=== PATIENT | female | born 1940 | race African-American/Black ===

== ENCOUNTER 2016-06-30 10:05 | Outpatient (CLI) | payer MEDICARE ==
--- NOTE | 2016-06-30 11:52 | Mammography Report ---
Bilateral mammogram: No previous studies available. CAD study utilized. Findings: Scattered glandular parenchyma bilaterally. No mass or microcalcification. Normal axilla. Impression: Benign findings. Annual followup recommended. BI-RADS CATEGORY: 2 = Benign ACR BI-RADS MAMMOGRAPHIC CODES: 0 = Needs additional imaging evaluation; 1 = Negative; 2 = Benign; 3 = Probably benign; 4 = Suspicious; 5 = Malignant; 6 = Known biopsy-proven malignancy COMMENT: 1. Dense breast tissue, i.e., adenosis, fibrocystic changes, etc., may obscure an underlying neoplasm. 2. Approximately 10% of cancers are not detected with mammography. 3. A negative mammography report should not delay biopsy if a clinically suspicious mass is present. COMMENT: Patient follow-up letters are generated in [employer].
== END 2016-06-30 10:06 | disposition home or self-care (01) ==
LOC: MAMMO 10:05
PROVIDERS: ATTEND Internal Medicine
DX: Z12.31 Encounter for screening mammogram for malignant neoplasm of breast (principal)
CPT/HCPCS: 77067; G0202

== ENCOUNTER 2016-11-01 14:16 | Outpatient (CLI) | payer MEDICARE ==
--- NOTE | 2016-11-01 15:15 | Cat Scan Report ---
CT ABDOMEN AND PELVIS WITHOUT CONTRAST INDICATION: Microscopic hematuria, renal colic, chronic kidney disease. COMPARISON: 07/14/2015 FINDINGS: Noncontrast abdomen and pelvis CT performed. LUNG BASES: Slight bibasilar scarring again noted. Top normal heart size. Possible anemia. No effusions. Nonspecific distal esophageal wall prominence/thickening, not excluded for gastroesophageal reflux and/or hiatal hernia, amongst others. ABDOMEN: Please note that sensitivity to detect small visceral lesions is limited due to the absence of intravenous or oral contrast. Stable approximately 1 cm right hepatic hypodensity/cyst posteriorly on axial image 28, series 2. Tiny splenic calcified granuloma. Lobulated renal contours again noted with multiple tiny cysts suspected, some now hyperdense/possibly hemorrhagic as measuring 7 mm in the right kidney superolaterally, axial image 44. Subtle hypodense renal cysts as measuring 9 mm on the left superiorly may also be present as on axial image 37. Tiny left lower renal pole stable calcification. No radiopaque calculi or hydronephrosis. Otherwise grossly unremarkable unenhanced liver, spleen, gallbladder, pancreas, adrenals, IVC and nonaneurysmal abdominal aorta with extensive atherosclerotic aortoiliac calcifications. No ascites or significant adenopathy. Nonopacified GI tract evaluation limited, though grossly nonobstructive. Normal appendix. PELVIS: Nonopacified urinary bladder, uterus, adnexa/ovaries and rectosigmoid within normal limits. No free fluid or significant adenopathy. Moderate lumbar levoscoliosis apex about L1-L2. Advanced imaged spinal degenerative changes, including spurring and severe disc narrowing with multilevel vacuum phenomena also again noted. Spinal stenosis suspected lower thoracic and greatest at L1-L2. Demineralized bones. CONCLUSION: 1. No hydronephrosis or radiopaque calculi, though numerous bilateral renal cysts again noted, some now hyperdense/hemorrhagic, as described. 2. Various other findings, including those at lung bases, small hepatic cyst and advanced multilevel spinal degenerative changes, amongst others, as above. Thank you for the opportunity to participate in this patient's care.
== END 2016-11-01 14:17 | disposition home or self-care (01) ==
LOC: CT 14:16
PROVIDERS: ATTEND Urology
DX: N18.3 Chronic kidney disease, stage 3 (moderate) (principal); R31.29 Other microscopic hematuria; N23 Unspecified renal colic; J98.4 Other disorders of lung; J84.10 Pulmonary fibrosis, unspecified; K76.89 Other specified diseases of liver; N28.1 Cyst of kidney, acquired; N28.89 Other specified disorders of kidney and ureter; I70.0 Atherosclerosis of aorta; M41.86 Other forms of scoliosis, lumbar region; M47.896 Other spondylosis, lumbar region
CPT/HCPCS: 74176

== ENCOUNTER 2017-10-17 10:43 | Outpatient (CLI) | payer MEDICARE ==
--- NOTE | 2017-10-17 16:35 | Mammography Report ---
BILATERAL DIGITAL SCREENING MAMMOGRAM with CAD: 10/17/17 10:43:00 CLINICAL: Routine screening. COMPARISON: 06/30/16 FINDINGS: The breasts are heterogeneously dense, which may obscure small masses. A right upper asymmetry on MLO view requires additional imaging. No architectural distortion or suspicious calcifications. The left breast is negative. IMPRESSION: Right asymmetry requiring additional imaging. BI-RADS CATEGORY: 0--Needs Additional Imaging RECOMMENDATION: Recall for right exaggerated CC and spot magnification MLO views and right breast ultrasound if needed. COMMENT: Patient follow-up letters are generated by our [employer] application.
== END 2017-10-17 10:44 | disposition home or self-care (01) ==
LOC: MAMMO 10:43
PROVIDERS: ATTEND Internal Medicine
DX: Z12.31 Encounter for screening mammogram for malignant neoplasm of breast (principal)
CPT/HCPCS: 77067

== ENCOUNTER 2017-11-05 09:57 | Outpatient (CLI) | payer MEDICARE ==
--- NOTE | 2017-11-05 10:29 | Mammography Report ---
RIGHT DIGITAL DIAGNOSTIC MAMMOGRAM : 11/05/17 09:57:00 CLINICAL: Recalled for asymmetry. COMPARISON:10/17/17 screening FINDINGS: Additional mammographic views were performed and are negative. IMPRESSION: Negative Mammogram. BI-RADS CATEGORY: 1 -- Negative RECOMMENDATION: Routine mammographic screening in one year. ACR BI-RADS MAMMOGRAPHIC CODES: 0 = Needs additional imaging evaluation; 1 = Negative; 2 = Benign; 3 = Probably benign; 4 = Suspicious; 5 = Malignant; 6 = Known biopsy-proven malignancy COMMENT: 1. Dense breast tissue, i.e., adenosis, fibrocystic changes, etc., may obscure an underlying neoplasm. 2. Approximately 10% of cancers are not detected with mammography. 3. A negative mammography report should not delay biopsy if a clinically suspicious mass is present. COMMENT: Patient follow-up letters are generated via our [employer] application.
== END 2017-11-05 09:58 | disposition home or self-care (01) ==
LOC: MAMMO 09:57
PROVIDERS: ATTEND Internal Medicine
DX: R92.8 Other abnormal and inconclusive findings on diagnostic imaging of breast (principal)

== ENCOUNTER 2020-07-23 08:54 | Emergency (ER) | payer MEDICARE ==
[2020-07-23] MEDS ORDERED: MORPHINE 4 MG/1 ML INJ IM ONE (09:15)
[2020-07-23] MEDS ORDERED: ACETAMINOPHEN 325 MG TAB PO ONE (09:15)
--- NOTE | 2020-07-23 09:15 | Emergency Department Report ---
ED General Adult HPI - General Chief complaint: Fall Stated complaint: FALL/BACK PAIN PUI?: No Time Seen by Provider: 07/23/20 09:07 Source: patient, EMS ( EMS documentation not available at time of chart dictation ), RN notes reviewed, old records reviewed Mode of arrival: Stretcher Limitations: Physical Limitation - History of Present Illness Initial comments: The patient was evaluated in the emergency department for symptoms described in the history of present illness. He/she was evaluated in the context of the global COVID-19 pandemic, which necessitated consideration that the patient might be at risk for infection with the virus that causes COVID-19. Institutional protocols and algorithms that pertain to the evaluation of patients at risk for COVID-19 are in a state of rapid change based on information released by regulatory bodies including the CDC and federal and state organizations. These policies and algorithms were followed during the patient's care in the emergency department. Please note that these policies, procedures and recommendations changed on a rapid basis. Patient is an 80-year-old female who is not known to myself previously. She is on hemodialysis, Sunday, , Sunday. She lives at home by herself. The patient states that she had a mechanical fall yesterday. Prior to the fall, she was not having any symptoms. She reports that she tripped and landed on her back. She did not hit her head, but is not certain. She complains of thoracic back pain. She denies extremity weakness and numbness. She denies chest pain, abdominal pain, shortness of breath, nausea, vomiting, diarrhea, and she also denies loss of taste and smell. She makes very scant urine. She reports that her neighbor came by and helped her with calling 911, but she was not able to ambulate on her own, or get up on her own. She reports that she typically walks with a walker, she does have a few children who live close by. Her back pain is throbbing, increases with palpation, range of motion, and decreases with rest. Does not radiate anywhere. -: Gradual Location: back Quality: aching Consistency: constant Improves with: rest Worsens with: movement - Related Data Previous Rx's Medication Instructions Recorded Last Taken Type Acetaminophen [Non-Aspirin Extra 500 mg PO Q6HR PRN #30 tablet 07/23/20 Unknown Rx Strength] Allergies Allergy/AdvReac Type Severity Reaction Status Date / Time celecoxib [From Celebrex] Allergy FACE Verified 07/01/19 11:37 SWELLING sulfamethoxazole Allergy Swelling Verified 07/02/19 11:05 [From Bactrim] trimethoprim [From Bactrim] Allergy Swelling Verified 07/02/19 11:05 ED Review of Systems ROS: Stated complaint: FALL/BACK PAIN Other details as noted in HPI Constitutional: denies: fever Eyes: denies: eye discharge ENT: denies: epistaxis Respiratory: denies: cough Cardiovascular: denies: chest pain, syncope Gastrointestinal: denies: abdominal pain Genitourinary: denies: dysuria Musculoskeletal: back pain, arthralgia, myalgia Skin: denies: lesions Neurological: weakness (Generalized weakness). denies: headache, numbness Hematological/Lymphatic: denies: easy bleeding ED Past Medical Hx - Past Medical History Hx Hypertension: Yes Hx Renal Disease: Yes Additional medical history: hypercholesterol, hypothyroidism - Social History Smoking Status: Never Smoker - Medications Home Medications: Home Medications Medication Instructions Recorded Confirmed Last Taken Type Acetaminophen [Non-Aspirin Extra 500 mg PO Q6HR PRN #30 tablet 07/23/20 Unknown Rx Strength] ED Physical Exam - General Limitations: Physical Limitation General appearance: alert, in no apparent distress - Head Head exam: Present: atraumatic, normocephalic - Eye Eye exam: Present: normal appearance, EOMI. Absent: nystagmus - ENT ENT exam: Present: normal exam, normal orophraynx, mucous membranes moist, normal external ear exam - Neck Neck exam: Present: normal inspection, full ROM. Absent: tenderness, meningismus - Respiratory Respiratory exam: Present: normal lung sounds bilaterally. Absent: respiratory distress, wheezes, rales, rhonchi, stridor, decreased breath sounds - Cardiovascular Cardiovascular Exam: Present: normal rhythm, bradycardia, normal heart sounds. Absent: irregular rhythm, systolic murmur, diastolic murmur, rubs, gallop - GI/Abdominal GI/Abdominal exam: Present: soft. Absent: distended, tenderness, guarding, rebound, rigid, pulsatile mass - Extremities Exam Extremities exam: Present: normal inspection (Left upper extremity AV fistula, without redness, pus or streaking), full ROM, pedal edema (1+ edema in the bilateral lower extremities), other (2+ pulses noted in the bilateral upper and lower extremities. There is no palpable cord. negative Homans sign. Muscular compartments are soft. The pelvis is stable.). Absent: calf tenderness - Back Exam Back exam: Present: normal inspection, paraspinal tenderness, vertebral tenderness (Thoracic spine). Absent: CVA tenderness (R), CVA tenderness (L) - Neurological Exam Neurological exam: Present: alert, oriented X3, reflexes normal, other (No facial droop. Tongue midline. Extraocular movements intact bilaterally. Facial sensation intact to light touch in V1, V2, V3 distribution bilaterally. 5 and a 5 strength in 4 extremities. Sensation intact to light touch in 4 extremities.). Absent: motor sensory deficit - Psychiatric Psychiatric exam: Present: flat affect - Skin Skin exam: Present: warm, dry, intact, normal color. Absent: rash ED Course Vital Signs 07/23/20 07/23/20 09:09 10:01 Temperature 98.1 F Pulse Rate 56 L 58 L Respiratory 15 13 Rate Blood Pressure 169/60 149/50 Blood Pressure 169/60 [Right] O2 Sat by Pulse 99 100 Oximetry - Reevaluation(s) Reevaluation #1: 07/23/20 09:26 Differential diagnosis, including but not limited to: Fall, deconditioning, spinal injury, fracture, closed head injury, intracranial injury, end-stage renal disease on hemodialysis Assessment and plan: Frail-appearing 80-year-old female, who lives alone by herself, status post reported mechanical fall, and inability to get herself up after falling. The patient moves 4 extremities, has downgoing plantar reflexes bilaterally, and brisk quadriceps and biceps reflexes bilaterally, with 5 out of 5 strength in 4 extremities, and sensation intact to light touch in 4 extremities. Unlikely to be spinal cord injury. Given advanced age, thoracic spine tenderness, we will obtain CT scan of the brain, CT and L-spine to assess for fracture, dislocation. We appreciate that while the patient is awake, alert, oriented with a GCS of 15, given advanced age, D acceleration component, nonfunctional platelets in the context of end-stage renal disease, patient will require advanced imaging to rule out intracranial hemorrhage. Given advanced age, history of osteoporosis, mechanism, spinal tenderness, we will obtain CT scan of the CT and L-spine. We will also obtain EKG and appropriate laboratory studies. We will treat her pain. Once initial diagnostics have resulted, we will reassess. Have also ordered a case management request/consultation. If patient is found to not have an emergent medical condition at this time, as she may benefit from case management evaluation, insofar as they may evaluate the patient for home physical therapy and/or rehabilitation, and assist with a safe social disposition, as this 80-year-old frail-appearing female lives by herself. 07/23/20 11:22 CT scan brain, CT and L-spine negative for significant injuries. Patient able to ambulate with a walker. Her daughter is also at the bedside. She states she will go home with the patient. Patient and daughter informed of findings. Patient to follow-up for outpatient hemodialysis tomorrow. Patient and family counseled that she should expect to be sore over the next few days. Have also counseled patient and family that we have placed a case management consultation in computer for home case management/physical therapy evaluation. Due to patient's advanced age, medical comorbidities, patient requires advanced imaging to evaluate and rule out significant traumatic injuries. At this time, she is suitable for discharge with outpatient follow-up 07/23/20 11:23 ED Medical Decision Making - Lab Data Result diagrams: 07/23/20 10:05 07/23/20 10:05 Vital Signs 07/23/20 09:09 Temperature 98.1 F Pulse Rate 56 L Respiratory 15 Rate Blood Pressure 169/60 Blood Pressure 169/60 [Right] O2 Sat by Pulse 99 Oximetry Lab Results 07/23/20 07/23/20 07/23/20 Range/Units 10:05 10:05 10:05 WBC 4.0 L (4.5-11.0) K/mm3 RBC 3.80 (3.65-5.03) M/mm3 Hgb 12.7 (10.1-14.3) gm/dl Hct 38.1 (30.3-42.9) % MCV 100 H (79-97) fl MCH 33 H (28-32) pg MCHC 33 (30-34) % RDW 12.5 L (13.2-15.2) % Plt Count 167 (140-440) K/mm3 Lymph % (Auto) 20.0 (13.4-35.0) % Mcdonald % (Auto) 12.7 H (0.0-7.3) % Eos % (Auto) 5.3 H (0.0-4.3) % Baso % (Auto) 1.5 (0.0-1.8) % Lymph # (Auto) 0.8 L (1.2-5.4) K/mm3 Mcdonald # (Auto) 0.5 (0.0-0.8) K/mm3 Eos # (Auto) 0.2 (0.0-0.4) K/mm3 Baso # (Auto) 0.1 (0.0-0.1) K/mm3 Seg Neutrophils % 60.5 (40.0-70.0) % Seg Neutrophils # 2.4 (1.8-7.7) K/mm3 PT 12.9 (12.2-14.9) Sec. INR 0.92 (0.87-1.13) Sodium 138 (137-145) mmol/L Potassium 5.2 H (3.6-5.0) mmol/L Chloride 101.6 (98-107) mmol/L Carbon Dioxide 27 (22-30) mmol/L Anion Gap 15 mmol/L BUN 18 H (7-17) mg/dL Creatinine 3.3 H (0.6-1.2) mg/dL Estimated GFR 13 ml/min BUN/Creatinine Ratio 5 % Glucose 89 (65-100) mg/dL Calcium 8.9 (8.4-10.2) mg/dL Magnesium (1.7-2.3) mg/dL Total Creatine Kinase (30-135) units/L // Range/Units 10:05 WBC (4.5-11.0) K/mm3 RBC (3.65-5.03) M/mm3 Hgb (10.1-14.3) gm/dl Hct (30.3-42.9) % MCV (79-97) fl MCH (28-32) pg MCHC (30-34) % RDW (13.2-15.2) % Plt Count (140-440) K/mm3 Lymph % (Auto) (13.4-35.0) % Mcdonald % (Auto) (0.0-7.3) % Eos % (Auto) (0.0-4.3) % Baso % (Auto) (0.0-1.8) % Lymph # (Auto) (1.2-5.4) K/mm3 Mcdonald # (Auto) (0.0-0.8) K/mm3 Eos # (Auto) (0.0-0.4) K/mm3 Baso # (Auto) (0.0-0.1) K/mm3 Seg Neutrophils % (40.0-70.0) % Seg Neutrophils # (1.8-7.7) K/mm3 PT (12.2-14.9) Sec. INR (0.87-1.13) Sodium (137-145) mmol/L Potassium (3.6-5.0) mmol/L Chloride (98-107) mmol/L Carbon Dioxide (22-30) mmol/L Anion Gap mmol/L BUN (7-17) mg/dL Creatinine (0.6-1.2) mg/dL Estimated GFR ml/min BUN/Creatinine Ratio % Glucose (65-100) mg/dL Calcium (8.4-10.2) mg/dL Magnesium 2.00 (1.7-2.3) mg/dL Total Creatine Kinase 108 (30-135) units/L - EKG Data -: EKG Interpreted by Al EKG shows normal: sinus rhythm Rate: normal - EKG Data 07/23/20 10:40 EKG interpreted at 10: 15 Sinus rhythm, bradycardia, rate 58 bpm. Left axis deviation, poor R wave progression. QTC prolonged, 45 ms. This is an abnormal EKG. This is not a STEMI. - Radiology Data Radiology results: pending, report reviewed, image reviewed Pelvis one view INDICATION: Fall FINDINGS: Degenerative changes seen in bilateral hips. No acute fracture or dislocation is seen. Superior and inferior pubic rami appear intact. Advanced degenerative change in lower lumbar spine. IMPRESSION: Degenerative change in lower lumbar spine and bilateral hips. Signer Name: Erik Miller MD Signed: 07/23/2020 8:40 AM Workstation Name: [id number] CT HEAD WITHOUT CONTRAST INDICATION / CLINICAL INFORMATION: Fall, injury, pain. TECHNIQUE: Axial imaging performed from the skull apex through the skull base without the use of contrast. Sagittal and coronal reformatted images. All CT scans at this location are performed using CT dose reduction for ALARA by means of automated exposure control. COMPARISON: None available. FINDINGS: CEREBRAL PARENCHYMA: No significant abnormality. No acute territorial infarct. Age- appropriate cortical volume loss and minimal chronic white matter changes are noted. HEMORRHAGE: None. EXTRA-AXIAL SPACES: Normal in size and morphology for the patient's age. VENTRICULAR SYSTEM: Normal in size and morphology for the patient's age. MIDLINE SHIFT OR HERNIATION: None. CEREBELLUM / BRAINSTEM: No significant abnormality. CALVARIUM: No significant abnormality. ORBITS: Normal as visualized. PARANASAL SINUSES / MASTOID AIR CELLS: Normal as visualized. SOFT TISSUES of HEAD: No significant abnormality. ADDITIONAL FINDINGS: None. IMPRESSION: No acute intracranial abnormality. Signer Name: Vik torres MD Signed: 07/23/2020 9:10 AM Workstation Name: [id number] CT CERVICAL SPINE WITHOUT CONTRAST INDICATION: Fall, injury, neck pain. TECHNIQUE: Axial imaging performed through the cervical spine without the use of contrast. Sagittal and coronal reconstructed images were also reviewed. All CT scans at this location are performed using CT dose reduction for ALARA by means of automated exposure control. COMPARISON: None FINDINGS: Alignment: There is marked reversal of the normal cervical lordosis. This could be positional in nature. No subluxation. Bones: No acute fracture or bony lesion is identified. Mild osteopenia is evident. There is moderate to severe multilevel degenerative disc disease and mild facet arthropathy. There is thickening and calcifications in the posterior longitudinal ligament from C3-C6 with bilateral decompressive laminectomies at these levels. Soft tissues: No acute or significant incidental soft tissue abnormality. IMPRESSION: No acute injury is appreciated. Marked reversal of the normal cervical lordosis. Multilevel degenerative changes as described. OPLL with surgical changes. Osteopenia. Signer Name: Vik Willis Jr, MD Signed: 07/23/2020 9:14 AM Workstation Name: [id number] CT LUMBAR SPINE WITHOUT CONTRAST INDICATION: Fall. Back pain. TECHNIQUE: Axial imaging performed through the MR spine without the use of contrast. Sagittal and coronal reconstructed images were also reviewed. All CT scans at this location are performed using CT dose reduction for ALARA by means of automated exposure control. COMPARISON: None FINDINGS: Alignment: There is severe levocurvature of the lumbar spine with apex near the L2 level. There is normal alignment on the sagittal images. Bones: Mild osteopenia. Severe multilevel discogenic DJD and facet arthropathy are identified. All levels are affected. No acute fracture or bone lesion is identified. Multilevel neural foraminal narrowing is suspected. Soft tissues: No acute or significant incidental soft tissue abnormality. IMPRESSION: No acute injury is appreciated. Osteopenia. Severe levoscoliosis the lumbar spine with advanced multilevel degenerative changes. Signer Name: Vik Willis Jr, MD Signed: 07/23/2020 9:19 AM Workstation Name: [id number] CT THORACIC SPINE WITHOUT CONTRAST INDICATION / CLINICAL INFORMATION: Fall. TECHNIQUE: Axial CT images were obtained through the thoracic spine. Sagittal and coronal reformatted images were produced. All CT scans at this location are performed using CT dose reduction for ALARA by means of automated exposure control. COMPARISON: None available. FINDINGS: VERTEBRAE: No significant abnormality. No vertebral compression fracture; pedicles in the posterior elements normal ALIGNMENT: No significant abnormality. DISC SPACES: Disc spaces are narrowed; neuroforamina are normal FACET and COSTOVERTEBRAL JOINTS: Facet joint hypertrophic changes at T9-T10, T10-T11 and T11-T12 disc levels CERVICOTHORACIC JUNCTION:No significant abnormality. SPINAL CANAL: No significant abnormality. PARASPINAL SOFT TISSUES: No significant abnormality. ADDITIONAL FINDINGS: PICC line in place LUNGS: No significant abnormality of visualized lungs. IMPRESSION: 1. No fracture in the thoracic spine Signer Name: Qamar De La Cruz MD Signed: 07/23/2020 9:21 AM Workstation Name: [id number] Critical care attestation.: If time is entered above; I have spent that time in minutes in the direct care of this critically ill patient, excluding procedure time. ED Disposition Clinical Impression: Advance care planning, ESRD (end stage renal disease), Fall, Back pain, DJD (degenerative joint disease) Disposition: DC-01 TO HOME OR SELFCARE Is pt being admited?: No Does the pt Need Aspirin: No Condition: Good Instructions: Osteoarthritis, Chronic Back Pain, [id number] Additional Instructions: As we discussed, pain typically gets worse before it gets better after fall and blunt trauma. Patient should participate in rest, ice, compression, elevation, and should follow-up with her primary care doctor as an outpatient within the next 5 to 7 days. A case management consultation was ordered to see if patient is eligible for home physical therapy and/or rehabilitation. In addition, patient may follow-up with a spine surgeon such as Dr. Dang, to investigate outpatient options for chronic pain and acute pain management. Please return to the emergency room right away with new pain, worsened pain, migration of pain, extremity weakness/numbness, bladder or bowel retention or incontinence, anesthesia over the genitals and/or rectum. Please make certain to follow-up tomorrow, and is scheduled for your outpatient hemodialysis. Referrals: [facility] [Other] - 3-5 Days JEANNE DANG II, MD [Staff Physician] - 3-5 Days
--- NOTE | 2020-07-23 09:44 | XRay Report ---
Pelvis one view INDICATION: Fall FINDINGS: Degenerative changes seen in bilateral hips. No acute fracture or dislocation is seen. Supe rior and inferior pubic rami appear intact. Advanced degenerative change in lower lumbar spine. IMPRESSION: Degenerative change in lower lumbar spine and bilateral hips. Signer Name: Erik Miller MD Signed: 07/23/2020 9:40 AM Workstation Name: [id number]
--- NOTE | 2020-07-23 10:15 | Cat Scan Report ---
CT HEAD WITHOUT CONTRAST INDICATION / CLINICAL INFORMATION: Fall, injury, pain. TECHNIQUE: Axial imaging performed from the skull apex through the skull base without the use of cont rast. Sagittal and coronal reformatted images. All CT scans at this location are performed using CT dose reduction for ALARA by means of automated exposure control. COMPARISON: None available. FINDINGS: CEREBRAL PARENCHYMA: No significant abnormality. No acute territorial infarct. Age-appropriate cortic al volume loss and minimal chronic white matter changes are noted. HEMORRHAGE: None. EXTRA-AXIAL SPACES: Normal in size and morphology for the patient's age. VENTRICULAR SYSTEM: Normal in size and morphology for the patient's age. MIDLINE SHIFT OR HERNIATION: None. CEREBELLUM / BRAINSTEM: No significant abnormality. CALVARIUM: No significant abnormality. ORBITS: Normal as visualized. PARANASAL SINUSES / MASTOID AIR CELLS: Normal as visualized. SOFT TISSUES of HEAD: No significant abnormality. ADDITIONAL FINDINGS: None. IMPRESSION: No acute intracranial abnormality. Signer Name: Vik Willis Jr, MD Signed: 07/23/2020 10:10 AM Workstation Name: [id number]
--- NOTE | 2020-07-23 10:18 | Cat Scan Report ---
CT CERVICAL SPINE WITHOUT CONTRAST INDICATION: Fall, injury, neck pain. TECHNIQUE: Axial imaging performed through the cervical spine without the use of contrast. Sagittal and coronal reconstructed images were also reviewed. All CT scans at this location are performed us ing CT dose reduction for ALARA by means of automated exposure control. COMPARISON: None FINDINGS: Alignment: There is marked reversal of the normal cervical lordosis. This could be positional in jose ure. No subluxation. Bones: No acute fracture or bony lesion is identified. Mild osteopenia is evident. There is moderate to severe multilevel degenerative disc disease and mild facet arthropathy. There is thickening and c alcifications in the posterior longitudinal ligament from C3-C6 with bilateral decompressive laminect omies at these levels. Soft tissues: No acute or significant incidental soft tissue abnormality. IMPRESSION: No acute injury is appreciated. Marked reversal of the normal cervical lordosis. Multilevel degenerative changes as described. OPLL with surgical changes. Osteopenia. Signer Name: Vik Willis Jr, MD Signed: 07/23/2020 10:14 AM Workstation Name: [id number]
--- NOTE | 2020-07-23 10:23 | Cat Scan Report ---
CT LUMBAR SPINE WITHOUT CONTRAST INDICATION: Fall. Back pain. TECHNIQUE: Axial imaging performed through the MR spine without the use of contrast. Sagittal and c oronal reconstructed images were also reviewed. All CT scans at this location are performed using CT dose reduction for ALARA by means of automated exposure control. COMPARISON: None FINDINGS: Alignment: There is severe levocurvature of the lumbar spine with apex near the L2 level. There is n ormal alignment on the sagittal images. Bones: Mild osteopenia. Severe multilevel discogenic DJD and facet arthropathy are identified. All l evels are affected. No acute fracture or bone lesion is identified. Multilevel neural foraminal narr owing is suspected. Soft tissues: No acute or significant incidental soft tissue abnormality. IMPRESSION: No acute injury is appreciated. Osteopenia. Severe levoscoliosis the lumbar spine with advanced multilevel degenerative changes. Signer Name: Vik Willis Jr, MD Signed: 07/23/2020 10:19 AM Workstation Name: [id number]
--- NOTE | 2020-07-23 10:26 | Cat Scan Report ---
CT THORACIC SPINE WITHOUT CONTRAST INDICATION / CLINICAL INFORMATION: Fall. TECHNIQUE: Axial CT images were obtained through the thoracic spine. Sagittal and coronal reformatted images wer e produced. All CT scans at this location are performed using CT dose reduction for ALARA by means of automated exposure control. COMPARISON: None available. FINDINGS: VERTEBRAE: No significant abnormality. No vertebral compression fracture; pedicles in the posterior e lements normal ALIGNMENT: No significant abnormality. DISC SPACES: Disc spaces are narrowed; neuroforamina are normal FACET and COSTOVERTEBRAL JOINTS: Facet joint hypertrophic changes at T9-T10, T10-T11 and T11-T12 disc levels CERVICOTHORACIC JUNCTION:No significant abnormality. SPINAL CANAL: No significant abnormality. PARASPINAL SOFT TISSUES: No significant abnormality. ADDITIONAL FINDINGS: PICC line in place LUNGS: No significant abnormality of visualized lungs. IMPRESSION: 1. No fracture in the thoracic spine Signer Name: Qamar De La Cruz MD Signed: 07/23/2020 10:21 AM Workstation Name: [id number]
[2020-07-23 10:56] LABS: Basophils # (Auto) 0.1 K/mm3 (0.0-0.1); Basophils % (Auto) 1.5 % (0.0-1.8); Eosinophils # (Auto) 0.2 K/mm3 (0.0-0.4); Eosinophils % (Auto) 5.3 % (0.0-4.3); Hematocrit 38.1 % (30.3-42.9); Hemoglobin 12.7 gm/dl (10.1-14.3); Lymphocytes # (Auto) 0.8 K/mm3 (1.2-5.4); Mean Corpuscular HGB Conc 33 % (30-34); Mean Corpuscular Volume 100 fl (79-97); Monocytes # (Auto) 0.5 K/mm3 (0.0-0.8); Monocytes % (Auto) 12.7 % (0.0-7.3); Platelet Count 167 K/mm3 (140-440); Red Cell Distribution Width 12.5 % (13.2-15.2)
[2020-07-23 11:09] LABS: Calcium 8.9 mg/dL (8.4-10.2)
[2020-07-23 11:12] LABS: INR 0.92 (0.87-1.13)
[2020-07-23 12:19] VITALS: BP 121/82
--- NOTE | 2020-07-26 10:34 | Electrocardiograph Report ---
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
== END 2020-07-23 11:45 | disposition home or self-care (01) ==
LOC: ED 08:54
DX: M47.814 Spondylosis without myelopathy or radiculopathy, thoracic region (principal); I12.0 Hypertensive chronic kidney disease with stage 5 chronic kidney disease or end stage renal disease; N18.6 End stage renal disease; E78.00 Pure hypercholesterolemia, unspecified; E03.9 Hypothyroidism, unspecified; R51.9 Headache, unspecified; Z88.8 Allergy status to other drugs, medicaments and biological substances; Z88.2 Allergy status to sulfonamides; Z79.899 Other long term (current) drug therapy; Z71.89 Other specified counseling; W19.XXXA Unspecified fall, initial encounter; Y92.89 Other specified places as the place of occurrence of the external cause; Y93.89 Activity, other specified; Y99.8 Other external cause status
CPT/HCPCS: 36415; 70450; 72125; 72128; 72131; 72170; 80048; 82550; 83735; 85025; 85610; 93005; 96372; 99285; J2270

== ENCOUNTER 2020-08-28 09:19 | Emergency (ER) | payer MEDICARE ==
--- NOTE | 2020-08-28 11:23 | Emergency Department Report ---
ED General Adult HPI - General Chief complaint: Medical Clearance Stated complaint: CONSTIPATION 2 DAYS Time Seen by Provider: 08/28/20 11:09 Source: patient Mode of arrival: Wheelchair Limitations: Physical Limitation - History of Present Illness Initial comments: Patient is 80 years old female with history of end-stage renal disease on hemodialysis. Patient presented to the ER with her caregiver for evaluation of unable to urinate for the last 2 days. Patient stated that she reported to her dialysis center today and they asked that he come to the ER. Patient stated that she also have constipation. Patient had a left arm fistula operation on J lisa 8 at [facility]. Patient denied any chest pain or shortness of breath. No fever or chills. - Related Data Previous Rx's Medication Instructions Recorded Last Taken Type Acetaminophen [Non-Aspirin Extra 500 mg PO Q6HR PRN #30 tablet 07/23/20 Unknown Rx Strength] Allergies Allergy/AdvReac Type Severity Reaction Status Date / Time celecoxib [From Celebrex] Allergy FACE Verified 07/01/19 11:37 SWELLING sulfamethoxazole Allergy Swelling Verified 07/02/19 11:05 [From Bactrim] trimethoprim [From Bactrim] Allergy Swelling Verified 07/02/19 11:05 ED Review of Systems ROS: Stated complaint: CONSTIPATION 2 DAYS Other details as noted in HPI Comment: All other systems reviewed and negative Constitutional: denies: chills, fever Respiratory: denies: cough, shortness of breath, SOB with exertion Cardiovascular: denies: chest pain, palpitations Gastrointestinal: constipation. denies: abdominal pain, nausea, vomiting Genitourinary: other (Urine retention) Neurological: denies: headache, weakness, numbness, paresthesias, confusion ED Past Medical Hx - Past Medical History Previous Medical History?: Yes Hx Hypertension: Yes Hx Renal Disease: Yes (Dialysis t, th, sat) Additional medical history: hypercholesterol, hypothyroidism - Surgical History Past Surgical History?: Yes Additional Surgical History: Left arm dialysis access - Social History Smoking Status: Never Smoker - Medications Home Medications: Home Medications Medication Instructions Recorded Confirmed Last Taken Type Acetaminophen [Non-Aspirin Extra 500 mg PO Q6HR PRN #30 tablet 07/23/20 Unknown Rx Strength] ED Physical Exam - General Limitations: Physical Limitation General appearance: alert, in no apparent distress - Head Head exam: Present: atraumatic, normocephalic, normal inspection - Eye Eye exam: Present: normal appearance - ENT ENT exam: Present: normal exam, normal orophraynx, mucous membranes moist - Neck Neck exam: Present: normal inspection, full ROM. Absent: tenderness, meningismus - Respiratory Respiratory exam: Present: normal lung sounds bilaterally - Cardiovascular Cardiovascular Exam: Present: regular rate, normal rhythm, normal heart sounds - GI/Abdominal GI/Abdominal exam: Present: soft, normal bowel sounds. Absent: distended, tenderness, guarding, rebound, rigid - Extremities Exam Extremities exam: Present: normal inspection, full ROM, normal capillary refill. Absent: tenderness - Back Exam Back exam: Present: normal inspection, full ROM. Absent: CVA tenderness (R), CVA tenderness (L) - Neurological Exam Neurological exam: Present: alert, oriented X3, CN II-XII intact - Psychiatric Psychiatric exam: Present: normal mood - Skin Skin exam: Present: warm, intact, normal color ED Course Vital Signs 08/28/20 08/28/20 09:47 09:51 Temperature 99.1 F 99.0 F Pulse Rate 62 62 Respiratory 18 18 Rate Blood Pressure 160/41 Blood Pressure 160/41 [Right] O2 Sat by Pulse 96 97 Oximetry ED Medical Decision Making - Lab Data Result diagrams: 08/28/20 11:23 08/28/20 11:23 - Medical Decision Making Patient is 80 years old female with history of end-stage renal disease on hemodialysis. Patient presented to the ER with her caregiver for evaluation of unable to urinate for the last 2 days. Patient stated that she reported to her dialysis center today and they asked that he come to the ER. Patient stated that she also have constipation. Patient had a left arm fistula operation on August 26 at [facility]. Patient denied any chest pain or shortness of breath. No fever or chills. Patient remained stable in the ER. Labs reviewed and is unremarkable except for chronic kidney disease. Patient potassium is 4.6. Benjamin catheter placed and patient has an immediate urine output of more than 700 mL. I discussed the patient with Dr. Overton who stated that patient can go straight to dialysis from the ER. Patient also advised to follow-up with urologist and given Dr. Gallagher. Patient advised to return to the ER if she develop any new symptoms. Critical care attestation.: If time is entered above; I have spent that time in minutes in the direct care of this critically ill patient, excluding procedure time. ED Disposition Clinical Impression: Acute retention of urine Disposition: DC-01 TO HOME OR SELFCARE Is pt being admited?: No Condition: Stable Additional Instructions: Patient is medically clear to have her dialysis today. Referrals: PRIMARY CARE, [Primary Care Provider] - 3-5 Days ATTILA GALLAGHER MD [Staff Physician] - 3-5 Days
--- NOTE | 2020-08-28 11:36 | XRay Report ---
CHEST - 1 VIEW INDICATION: SOB COMPARISON: 07/02/2019 FINDINGS: SUPPORT DEVICES: Right IJ catheter in place with tip in the mid right atrium. HEART: Stable mild cardiomegaly. LUNGS/PLEURA: Mild interstitial edema with no consolidation or pleural effusion. ADDITIONAL FINDINGS: None. IMPRESSION: Pulmonary findings as above. Signer Name: Haim Carney MD Signed: 08/28/2020 11:32 AM Workstation Name: [id number]
[2020-08-28 11:50] LABS: Basophils % (Auto) 0.2 % (0.0-1.8); Eosinophils # (Auto) 0.3 K/mm3 (0.0-0.4); Eosinophils % (Auto) 5.3 % (0.0-4.3); Hematocrit 35.5 % (30.3-42.9); Hemoglobin 11.8 gm/dl (10.1-14.3); Lymphocytes # (Auto) 0.2 K/mm3 (1.2-5.4); Lymphocytes % (Auto) 4.1 % (13.4-35.0); Mean Corpuscular HGB Conc 33 % (30-34); Mean Corpuscular Volume 100 fl (79-97); Monocytes # (Auto) 0.6 K/mm3 (0.0-0.8); Monocytes % (Auto) 11.2 % (0.0-7.3); Platelet Count 169 K/mm3 (140-440); Red Blood Count 3.55 M/mm3 (3.65-5.03); Red Cell Distribution Width 12.4 % (13.2-15.2)
[2020-08-28 11:55] LABS: Calcium 8.8 mg/dL (8.4-10.2)
[2020-08-28 16:08] VITALS: BP 132/65
== END 2020-08-28 16:10 | disposition home or self-care (01) ==
LOC: ED 09:19
DX: R33.9 Retention of urine, unspecified (principal); I10 Essential (primary) hypertension; Z98.890 Other specified postprocedural states; Z79.899 Other long term (current) drug therapy; Z88.8 Allergy status to other drugs, medicaments and biological substances
CPT/HCPCS: 36415; 51702; 71045; 80048; 85025

== ENCOUNTER 2021-05-28 22:47 | Inpatient (IN) | payer MEDICARE, OTHER ==
[2021-05-29] MEDS ORDERED: ONDANSETRON 4 MG/2 ML INJ IV ONE (01:41)
[2021-05-29 01:50] LABS: Basophils % (Auto) 0.3 % (0.0-1.8); Eosinophils % (Auto) 0.5 % (0.0-4.3); Lymphocytes # (Auto) 0.9 K/mm3 (1.2-5.4); Lymphocytes % (Auto) 11.4 % (13.4-35.0); Mean Corpuscular HGB Conc 34 % (30-34); Mean Corpuscular Volume 102 fl (79-97); Monocytes # (Auto) 0.4 K/mm3 (0.0-0.8); Monocytes % (Auto) 4.9 % (0.0-7.3); Platelet Count 131 K/mm3 (140-440); Red Blood Count 1.56 M/mm3 (3.65-5.03); Red Cell Distribution Width 13.7 % (13.2-15.2)
[2021-05-29 02:02] LABS: Hematocrit 15.9 % (30.3-42.9); Hemoglobin 5.3 gm/dl (10.1-14.3)
--- NOTE | 2021-05-29 03:15 | Cat Scan Report ---
CT abdomen pelvis wo con INDICATION / CLINICAL INFORMATION: vomiting. Abdominal pain TECHNIQUE: CT abdomen pelvis without contrast. All CT scans at this location are performed using CT dose reducti on for ALARA by means of automated exposure control. Exam limited by motion artifact. COMPARISON: None available. FINDINGS: Abdomen and pelvis: Exam is limited by motion artifact Mild cardiomegaly with trace interstitial roberto a. The liver contains several cystlike lesions. The gallbladder is partially contracted. The spleen, [place] adrenal glands and kidneys are grossly unremarkable within the limits of multiple artifacts and motion. No free air or free fluid. No bowel obstruction identified. The urinary bladder is fluid dis tended. No free pelvic fluid. There is severe atherosclerotic calcification of the abdominal aorta. Review of bone windows demonstrates thoracolumbar scoliosis. IMPRESSION: 1. Cardiomegaly with findings suggestive of anemia 2. No high-grade bowel obstruction identified. 3. Mild anasarca. Signer Name: Adan Ortega MD Signed: 05/29/2021 3:11 AM Workstation Name: [email or web address]
[2021-05-29] MEDS ORDERED: PANTOPRAZOLE 40 MG INJ IV ONE ×3 (03:46→08:00)
--- NOTE | 2021-05-29 03:52 | Emergency Department Report ---
ED General Adult HPI - General Chief complaint: Nausea/Vomiting/Diarrhea Stated complaint: NAUSEA/VOMITING Time Seen by Provider: 05/29/21 01:11 Source: patient, EMS Mode of arrival: Stretcher Limitations: No Limitations - History of Present Illness Initial comments: Patient presents with complaints of diarrhea x 1 days (multiple bouts) without blood or mucus. Endorses non bloody, non bilious emesis, dizziness. Denies recent travel, known sick contacts, antibiotics, eating out or any unusual or reheated foods. Denies abdominal pain - Related Data Previous Rx's Medication Instructions Recorded Last Taken Type Acetaminophen [Non-Aspirin Extra 500 mg PO Q6HR PRN #30 tablet 07/23/20 Unknown Rx Strength] Allergies Allergy/AdvReac Type Severity Reaction Status Date / Time celecoxib [From Celebrex] Allergy FACE Verified 07/01/19 11:37 SWELLING sulfamethoxazole Allergy Swelling Verified 07/02/19 11:05 [From Bactrim] trimethoprim [From Bactrim] Allergy Swelling Verified 07/02/19 11:05 ED Review of Systems ROS: Stated complaint: NAUSEA/VOMITING Other details as noted in HPI Comment: All other systems reviewed and negative Constitutional: denies: chills, fever ED Past Medical Hx - Past Medical History Previous Medical History?: Yes Hx Hypertension: Yes Hx Renal Disease: Yes (Dialysis t, th, sat) Additional medical history: hypercholesterol, hypothyroidism - Surgical History Past Surgical History?: Yes Additional Surgical History: Left arm dialysis access - Social History Smoking Status: Never Smoker Substance Use Type: None - Medications Home Medications: Home Medications Medication Instructions Recorded Confirmed Last Taken Type Acetaminophen [Non-Aspirin Extra 500 mg PO Q6HR PRN #30 tablet 07/23/20 Unknown Rx Strength] ED Physical Exam - General Limitations: No Limitations General appearance: alert, in no apparent distress - Head Head exam: Present: atraumatic, normocephalic - Eye Eye exam: Present: PERRL, EOMI - ENT ENT exam: Present: mucous membranes moist, other (airway patent) - Neck Neck exam: Present: other (supple; no JVD) - Respiratory Respiratory exam: Present: other (good air entry, nml I:E, CTAB, no use of CHUCKY) - Cardiovascular Cardiovascular Exam: Present: regular rate. Absent: rubs, gallop - GI/Abdominal GI/Abdominal exam: Present: soft, normal bowel sounds. 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 Absent: tenderness - Neurological Exam Neurological exam: Present: altered, CN II-XII intact. Absent: motor sensory deficit - Skin Skin exam: Present: warm, other (pallid) ED Course Vital Signs 05/29/21 00:50 Temperature 98 F Pulse Rate 60 Respiratory 20 Rate Blood Pressure 120/58 O2 Sat by Pulse 96 Oximetry ED Medical Decision Making - Lab Data Result diagrams: 05/29/21 01:16 05/29/21 01:16 Laboratory Tests 05/29/21 05/29/21 05/29/21 01:16 01:16 01:52 WBC 7.5 RBC 1.56 L Hgb 5.3 L* Hct 15.9 L* MCV 102 H MCH 34 H MCHC 34 RDW 13.7 Plt Count 131 L Lymph % (Auto) 11.4 L [place] % (Auto) 4.9 Eos % (Auto) 0.5 Baso % (Auto) 0.3 Lymph # (Auto) 0.9 L [place] # (Auto) 0.4 Eos # (Auto) 0.0 Baso # (Auto) 0.0 Seg Neutrophils % 82.9 H Seg Neutrophils # 6.2 Sodium 139 Potassium 4.8 Chloride 105.3 Carbon Dioxide 21 L Anion Gap 18 BUN 69 H Creatinine 2.5 H Estimated GFR 18 BUN/Creatinine Ratio 28 Glucose 112 H Calcium 8.0 L Total Bilirubin 0.20 AST 15 ALT 15 Alkaline Phosphatase 35 Total Protein 4.8 L Albumin 3.0 L Albumin/Globulin Ratio 1.[address] abd/pelvis: no acute abdominal process Stool occult blood positive PT/INR and PTT pending @ time of admission Type and screen ordered. - Medical Decision Making recieved zofran 4 mg IV x 1, pantoprazole 40 mg IV x 1, and 2 units of PRBCS ordered. Dr. Duncan (GI) consulted. Will see patient Critical Care Time: Yes Critical care time in (mins) excluding proc time.: 40 Critical care attestation.: If time is entered above; I have spent that time in minutes in the direct care of this critically ill patient, excluding procedure time. ED Disposition Clinical Impression: Anemia, Melena Disposition: ADMITTED INPATIENT Is pt being admited?: Yes Does the pt Need Aspirin: No Condition: Serious Time of Disposition: 03:54 (Patient admitted to Dr. Davila. Sign out was given by me to the admitting physician)
[2021-05-29 04:55] LABS: INR 1.33 (0.87-1.13)
[2021-05-29 04:56] LABS: Partial Thromboplastin Time 32.3 Sec. (24.2-36.6)
[2021-05-29] MEDS ORDERED: HYDROmorphone 1 MG/1 ML INJ IV PRN (05:28)
[2021-05-29] MEDS ORDERED: ONDANSETRON 4 MG/2 ML INJ IV PRN (05:28)
[2021-05-29] MEDS ORDERED: PANTOPRAZOLE 80 MG in SODIUM CHLORIDE 0.9% 100 ML IV SCH (06:00)
--- NOTE | 2021-05-29 06:06 | History and Physical Report ---
History of Present Illness Date of examination: 05/29/21 Date of admission: 05/29/21 Chief complaint: Nausea vomiting diarrhea History of present illness: 80 years old female with past medical history of hypertension, end-stage renal disease on dialysis was brought to the emergency room because of diarrhea x 1 days (multiple bouts) without blood or mucus. Endorses non bloody, non bilious emesis, dizziness. Denies recent travel, known sick contacts, antibiotics, ea ting out or any unusual or reheated foods. Denies abdominal pain In the emergency room patient is found to have hemoglobin of 5.3 and hematocrit 15.9. Stool guaiac is positive as per emergency room physician so going to admit the patient we will put the patient on Protonix drip we consulted GI for evaluation and possible endoscopy Past History Past Medical History: ESRD, hypertension, hyperlipidemia, hypothyroidism, renal failure Past Surgical History: Other (Left arm dialysis access) Social history: no significant social history Family history: no significant family history Medications and Allergies Allergies Allergy/AdvReac Type Severity Reaction Status Date / Time celecoxib [From Celebrex] Allergy FACE Verified 07/01/19 11:37 SWELLING sulfamethoxazole Allergy Swelling Verified 07/02/19 11:05 [From Bactrim] trimethoprim [From Bactrim] Allergy Swelling Verified 07/02/19 11:05 Home Medications Medication Instructions Recorded Confirmed Last Taken Type Acetaminophen [Non-Aspirin Extra 500 mg PO Q6HR PRN #30 tablet 07/23/20 Unknown Rx Strength] Active Meds: Active Medications Acetaminophen (Acetaminophen 325 Mg Tab) 650 mg PO Q4H PRN PRN Reason: Pain MILD(1-3)/Fever >100.5/LOVE Hydromorphone HCl (Hydromorphone 1 Mg/1 Ml Inj) 0.5 mg IV Q3H PRN PRN Reason: Pain , Severe (7-10) Pantoprazole Sodium 80 mg/ (Sodium Chloride) 100 mls @ 10 mls/hr IV DIRECT ELAINE Morphine Sulfate (Morphine 2 Mg/1 Ml Inj) 2 mg IV Q4H PRN PRN Reason: Pain, Moderate (4-6) Ondansetron HCl (Ondansetron 4 Mg/2 Ml Inj) 4 mg IV Q8H PRN PRN Reason: Nausea And Vomiting Sodium Chloride (Sodium Chloride 0.9% 10 Ml Flush Syringe) 10 ml IV BID ELAINE Sodium Chloride (Sodium Chloride 0.9% 10 Ml Flush Syringe) 10 ml IV PRN PRN PRN Reason: LINE FLUSH Review of Systems All systems: negative Gastrointestinal: abdominal pain, nausea, vomiting, diarrhea, melena Exam - Constitutional Vitals: Temp Pulse Resp BP Pulse Ox 98 F 60 20 120/58 96 05/29/21 00:50 05/29/21 00:50 05/29/21 00:50 05/29/21 00:50 05/29/21 00:50 General appearance: Present: no acute distress, well-nourished - EENT Eyes: Present: PERRL ENT: hearing intact, clear oral mucosa - Neck Neck: Present: supple, normal ROM - Respiratory Respiratory effort: normal Respiratory: bilateral: diminished - Cardiovascular Heart Sounds: Present: S1 & S2. Absent: rub, click - Extremities Extremities: pulses symmetrical, No edema Peripheral Pulses: within normal limits - Abdominal General gastrointestinal: Present: soft, non-tender, non-distended, normal bowel sounds Female genitourinary: Present: normal - Integumentary Integumentary: Present: clear, warm, dry - Musculoskeletal Musculoskeletal: gait normal, strength equal bilaterally - Psychiatric Psychiatric: appropriate mood/affect, intact judgment & insight - Neurologic Neurologic: CNII-XII intact, moves all extremities Results - Labs CBC & Chem 7: 05/29/21 01:16 05/29/21 01:16 Labs: Laboratory Last Values WBC 7.5 K/mm3 (4.5-11.0) 05/29/21 01:16 RBC 1.56 M/mm3 (3.65-5.03) L 05/29/21 01:16 Hgb 5.3 gm/dl (10.1-14.3) L* 05/29/21 01:16 Hct 15.9 % (30.3-42.9) L* 05/29/21 01:16 MCV 102 fl (79-97) H 05/29/21 01:16 MCH 34 pg (28-32) H 05/29/21 01:16 MCHC 34 % (30-34) 05/29/21 01:16 RDW 13.7 % (13.2-15.2) 05/29/21 01:16 Plt Count 131 K/mm3 (140-440) L 05/29/21 01:16 Lymph % (Auto) 11.4 % (13.4-35.0) L 05/29/21 01:16 [place] % (Auto) 4.9 % (0.0-7.3) 05/29/21 01:16 Eos % (Auto) 0.5 % (0.0-4.3) 05/29/21 01:16 Baso % (Auto) 0.3 % (0.0-1.8) 05/29/21 01:16 Lymph # (Auto) 0.9 K/mm3 (1.2-5.4) L 05/29/21 01:16 [place] # (Auto) 0.4 K/mm3 (0.0-0.8) 05/29/21 01:16 Eos # (Auto) 0.0 K/mm3 (0.0-0.4) 05/29/21 01:16 Baso # (Auto) 0.0 K/mm3 (0.0-0.1) 05/29/21 01:16 Seg Neutrophils % 82.9 % (40.0-70.0) H 05/29/21 01:16 Seg Neutrophils # 6.2 K/mm3 (1.8-7.7) 05/29/21 01:16 PT 18.1 Sec. (12.2-14.9) H 05/29/21 03:57 INR 1.33 (0.87-1.13) H 05/29/21 03:57 APTT 32.3 Sec. (24.2-36.6) 05/29/21 03:57 Sodium 139 mmol/L (137-145) 05/29/21 01:16 Potassium 4.8 mmol/L (3.6-5.0) 05/29/21 01:16 Chloride 105.3 mmol/L (98-107) 05/29/21 01:16 Carbon Dioxide 21 mmol/L (22-30) L 05/29/21 01:16 Anion Gap 18 mmol/L 05/29/21 01:16 BUN 69 mg/dL (7-17) H 05/29/21 01:16 Creatinine 2.5 mg/dL (0.6-1.2) H 05/29/21 01:16 Estimated GFR 18 ml/min 05/29/21 01:16 BUN/Creatinine Ratio 28 % 05/29/21 01:16 Glucose 112 mg/dL (65-100) H 05/29/21 01:16 Calcium 8.0 mg/dL (8.4-10.2) L 05/29/21 01:16 Total Bilirubin 0.20 mg/dL (0.1-1.2) 05/29/21 01:16 AST 15 units/L (5-40) 05/29/21 01:16 ALT 15 units/L (7-56) 05/29/21 01:16 Alkaline Phosphatase 35 units/L (35-129) 05/29/21 01:16 Total Protein 4.8 g/dL (6.3-8.2) L 05/29/21 01:16 Albumin 3.0 g/dL (3.9-5) L 05/29/21 01:16 Albumin/Globulin Ratio 1.7 % 05/29/21 01:16 Lipase 73 units/L (13-60) H 05/29/21 01:52 Blood Type A POSITIVE 05/29/21 03:57 Antibody Screen Negative 05/29/21 03:57 Microbiology: Microbiology 05/29/21 Unknown Stool Stool Occult Blood (ALENA) - Final - Imaging and Cardiology CT scan - abdomen: report reviewed Assessment and Plan VTE prophylaxis?: Mechanical Plan of care discussed with patient/family: Yes - Patient Problems (1) Anemia Current Visit: Yes Status: Acute Plan to address problem: Admit the patient to the medical's telemetry. We are going to transfuse 2 unit of packed red blood cell. Protonix drip. We consult GI for evaluation. Recheck CBC in the morning (2) Melena Current Visit: Yes Status: Acute Plan to address problem: We are going to transfuse 2 unit of packed red blood cell. Protonix drip. We consult GI for evaluation. Recheck CBC in the morning (3) ESRD needing dialysis Current Visit: No Status: Acute Plan to address problem: Avoid nephrotoxic drug. Reconsult nephrology for dialysis. Recheck BMP in the morning (4) Hypertension Current Visit: Yes Status: Acute Plan to address problem: Hydralazine 10 mg IV every 6 hours as needed. We continue the home medication (5) DVT prophylaxis Current Visit: Yes Status: Acute Plan to address problem: SCD for DVT prophylaxis. Protonix drip for GI prophylaxis. Patient is a full code
[2021-05-29] MEDS ORDERED: SODIUM CHLORIDE 0.9% 500 ML 500 ML IV ONE (06:07)
--- NOTE | 2021-05-29 11:08 | Event Note ---
Date: 05/29/21 Chart reviewed and patient has been seen by [facility] on prior admissions, and per documentation sees Dr Escalante as an outpatient. Will change consult to their group to follow.
[2021-05-29] MEDS ORDERED: SODIUM CHLORIDE 0.9% 500 ML 500 ML ONE (11:52)
--- NOTE | 2021-05-29 12:27 | Progress Note ---
Assessment and Plan Assessment and plan: --Severe anemia Current Visit: Yes Status: Acute Due to GI bleeding Hb 5.3 ,transfuse 2 unit of packed red blood cell. Monitor H&H and transfuse additional PRBC as needed Protonix drip. Follow GI evaluation --Melena Current Visit: Yes Status: Acute N.p.o. status, Protonix drip, closely monitor H&H Transfuse additional PRBC GI consult for possible endoscopy -- ESRD needing dialysis Current Visit: No Status: Acute Avoid nephrotoxic drug. Consulted nephrology for dialysis. -- Hypertension Current Visit: Yes Status: Acute Hydralazine 10 mg IV every 6 hours as needed. We continue the home medication --DVT prophylaxis Current Visit: Yes Status: Acute SCD for DVT prophylaxis. We will try to reach family and get consent for blood transfusion Closely monitor the patient and adjust the management as needed Plan of care reviewed with the patient and her nurse GI evaluation and recommendations noted and appreciated Possible endoscopy tomorrow Renal evaluation recommendation noted and appreciated Scheduled for hemodialysis today Closely monitor the patient and adjust the management as needed Prolonged care total time 32 minutes Advance care planning; + 30 minutes I discussed with patient her condition, tests and reports I also discussed with the patient diagnosis, discussed the treatment plan Discussed evaluation by GI, also informed her that she is going to have endoscopy tomorrow Discussed with the patient nephrology consultation and recommendations, dialysis per schedule Discussed about the severity of severe anemia with hemoglobin of 5.3, need for blood transfusion Distant complications of blood transfusion discussed with the patient, patient had some questions Answered all of them, additional time spent 30 minutes History Interval history: I have seen and examined the patient at the bedside Patient's chart and medications reviewed No new events reported by the nursing Vital signs noted Admitted with severe anemia and GI bleeding Patient is in mild distress Hospitalist Physical - Constitutional Vitals: Temp Pulse Resp BP Pulse Ox 98.8 F 73 18 112/26 95 05/29/21 09:54 05/29/21 09:55 05/29/21 09:55 05/29/21 09:54 05/29/21 09:55 General appearance: Present: mild distress, well-nourished - EENT Eyes: Present: PERRL, EOM intact - Neck Neck: Present: supple, normal ROM - Respiratory Respiratory effort: normal Respiratory: bilateral: diminished, negative: rales, rhonchi, wheezing - Cardiovascular Rhythm: regular Heart Sounds: Present: S1 & S2 - Extremities Extremities: no ischemia, No edema - Abdominal General gastrointestinal: soft, non-tender, non-distended, normal bowel sounds - Integumentary Integumentary: Present: clear, warm, pale - Psychiatric Psychiatric: appropriate mood/affect, cooperative - Neurologic Neurologic: moves all extremities Results - Labs CBC & Chem 7: 05/29/21 01:16 05/29/21 01:16 Labs: Laboratory Last Values WBC 7.5 K/mm3 (4.5-11.0) 05/29/21 01:16 RBC 1.56 M/mm3 (3.65-5.03) L 05/29/21 01:16 Hgb 5.3 gm/dl (10.1-14.3) L* 05/29/21 01:16 Hct 15.9 % (30.3-42.9) L* 05/29/21 01:16 MCV 102 fl (79-97) H 05/29/21 01:16 MCH 34 pg (28-32) H 05/29/21 01:16 MCHC 34 % (30-34) 05/29/21 01:16 RDW 13.7 % (13.2-15.2) 05/29/21 01:16 Plt Count 131 K/mm3 (140-440) L 05/29/21 01:16 Lymph % (Auto) 11.4 % (13.4-35.0) L 05/29/21 01:16 [place] % (Auto) 4.9 % (0.0-7.3) 05/29/21 01:16 Eos % (Auto) 0.5 % (0.0-4.3) 05/29/21 01:16 Baso % (Auto) 0.3 % (0.0-1.8) 05/29/21 01:16 Lymph # (Auto) 0.9 K/mm3 (1.2-5.4) L 05/29/21 01:16 [place] # (Auto) 0.4 K/mm3 (0.0-0.8) 05/29/21 01:16 Eos # (Auto) 0.0 K/mm3 (0.0-0.4) 05/29/21 01:16 Baso # (Auto) 0.0 K/mm3 (0.0-0.1) 05/29/21 01:16 Seg Neutrophils % 82.9 % (40.0-70.0) H 05/29/21 01:16 Seg Neutrophils # 6.2 K/mm3 (1.8-7.7) 05/29/21 01:16 PT 18.1 Sec. (12.2-14.9) H 05/29/21 03:57 INR 1.33 (0.87-1.13) H 05/29/21 03:57 APTT 32.3 Sec. (24.2-36.6) 05/29/21 03:57 Sodium 139 mmol/L (137-145) 05/29/21 01:16 Potassium 4.8 mmol/L (3.6-5.0) 05/29/21 01:16 Chloride 105.3 mmol/L (98-107) 05/29/21 01:16 Carbon Dioxide 21 mmol/L (22-30) L 05/29/21 01:16 Anion Gap 18 mmol/L 05/29/21 01:16 BUN 69 mg/dL (7-17) H 05/29/21 01:16 Creatinine 2.5 mg/dL (0.6-1.2) H 05/29/21 01:16 Estimated GFR 18 ml/min 05/29/21 01:16 BUN/Creatinine Ratio 28 % 05/29/21 01:16 Glucose 112 mg/dL (65-100) H 05/29/21 01:16 Calcium 8.0 mg/dL (8.4-10.2) L 05/29/21 01:16 Total Bilirubin 0.20 mg/dL (0.1-1.2) 05/29/21 01:16 AST 15 units/L (5-40) 05/29/21 01:16 ALT 15 units/L (7-56) 05/29/21 01:16 Alkaline Phosphatase 35 units/L (35-129) 05/29/21 01:16 Total Protein 4.8 g/dL (6.3-8.2) L 05/29/21 01:16 Albumin 3.0 g/dL (3.9-5) L 05/29/21 01:16 Albumin/Globulin Ratio 1.7 % 05/29/21 01:16 Lipase 73 units/L (13-60) H 05/29/21 01:52 Blood Type A POSITIVE 05/29/21 03:57 Antibody Screen Negative 05/29/21 03:57 Crossmatch See Detail 05/29/21 03:57 Microbiology: Microbiology 05/29/21 Unknown Stool Stool Occult Blood (ALENA) - Final Active Medications - Current Medications Current Medications: Generic Name Dose Route Start Last Admin Trade Name Freq PRN Reason Stop Dose Admin Acetaminophen 650 mg 05/29/21 05:28 Acetaminophen 325 Mg Tab PO Q4H PRN Pain MILD(1-3)/Fever >100.5/LOVE Hydromorphone HCl 0.5 mg 05/29/21 05:28 Hydromorphone 1 Mg/1 Ml Inj IV Q3H PRN Pain , Severe (7-10) Pantoprazole Sodium 80 mg/ 100 mls @ 10 mls/hr 05/29/21 06:00 05/29/21 08:55 Sodium Chloride IV 8 mg/hr DIRECT ELAINE 10 mls/hr Administration 8 MG/HR Morphine Sulfate 2 mg 05/29/21 05:28 Morphine 2 Mg/1 Ml Inj IV Q4H PRN Pain, Moderate (4-6) Ondansetron HCl 4 mg 05/29/21 05:28 Ondansetron 4 Mg/2 Ml Inj IV Q8H PRN Nausea And Vomiting Sodium Chloride 10 ml 05/29/21 10:00 05/29/21 09:01 Sodium Chloride 0.9% 10 Ml Flush Syringe IV 10 ml BID ELAINE Administration Sodium Chloride 10 ml 05/29/21 05:28 Sodium Chloride 0.9% 10 Ml Flush Syringe IV PRN PRN LINE FLUSH
--- NOTE | 2021-05-29 16:01 | Consultation ---
History of Present Illness - Reason for Consult Consult date: 05/29/21 end stage renal disease - History of Present Illness History of present illness: 80 years old female with past medical history of hypertension, end-stage renal disease on dialysis was brought to the emergency room because of diarrhea x 1 days (multiple bouts) without blood or mucus. Endorses non bloody, non bilious emesis, dizziness. Denies recent travel, known sick contacts, antibiotics, eatin g out or any unusual or reheated foods. Denies abdominal pain In the emergency room patient is found to have hemoglobin of 5.3 and hematocrit 15.9. Stool guaiac is positive as per emergency room physician so going to admit the patient we will put the patient on Protonix drip we consulted GI for e valuation and possible endoscopy Past History Past Medical History: ESRD, hypertension, hyperlipidemia, hypothyroidism, renal failure Past Surgical History: Other (Left arm dialysis access) Social history: no significant social history Family history: no significant family history Medications and Allergies Allergies Allergy/AdvReac Type Severity Reaction Status Date / Time celecoxib [From Celebrex] Allergy FACE Verified 07/01/19 11:37 SWELLING sulfamethoxazole Allergy Swelling Verified 07/02/19 11:05 [From Bactrim] trimethoprim [From Bactrim] Allergy Swelling Verified 07/02/19 11:05 Home Medications Medication Instructions Recorded Confirmed Last Taken Type Acetaminophen [Non-Aspirin Extra 500 mg PO Q6HR PRN #30 tablet 07/23/20 Unknown Rx Strength] Active Meds: Active Medications Acetaminophen (Acetaminophen 325 Mg Tab) 650 mg PO Q4H PRN PRN Reason: Pain MILD(1-3)/Fever >100.5/LOVE Hydromorphone HCl (Hydromorphone 1 Mg/1 Ml Inj) 0.5 mg IV Q3H PRN PRN Reason: Pain , Severe (7-10) Pantoprazole Sodium 80 mg/ (Sodium Chloride) 100 mls @ 10 mls/hr IV DIRECT ELAINE Morphine Sulfate (Morphine 2 Mg/1 Ml Inj) 2 mg IV Q4H PRN PRN Reason: Pain, Moderate (4-6) Ondansetron HCl (Ondansetron 4 Mg/2 Ml Inj) 4 mg IV Q8H PRN PRN Reason: Nausea And Vomiting Sodium Chloride (Sodium Chloride 0.9% 10 Ml Flush Syringe) 10 ml IV BID ELAINE Sodium Chloride (Sodium Chloride 0.9% 10 Ml Flush Syringe) 10 ml IV PRN PRN PRN Reason: LINE FLUSH Review of Systems All systems: negative Gastrointestinal: abdominal pain, nausea, vomiting, diarrhea, melena Past History Past Medical History: ESRD, hypertension, hyperlipidemia, hypothyroidism, renal failure Past Surgical History: Other (Left arm dialysis access) Social history: no significant social history Family history: no significant family history Medications and Allergies Allergies Allergy/AdvReac Type Severity Reaction Status Date / Time celecoxib [From Celebrex] Allergy FACE Verified 07/01/19 11:37 SWELLING sulfamethoxazole Allergy Swelling Verified 07/02/19 11:05 [From Bactrim] trimethoprim [From Bactrim] Allergy Swelling Verified 07/02/19 11:05 Home Medications Medication Instructions Recorded Confirmed Last Taken Type Acetaminophen [Non-Aspirin Extra 500 mg PO Q6HR PRN #30 tablet 07/23/20 Unknown Rx Strength] Active Meds: Active Medications Acetaminophen (Acetaminophen 325 Mg Tab) 650 mg PO Q4H PRN PRN Reason: Pain MILD(1-3)/Fever >100.5/LOVE Hydromorphone HCl (Hydromorphone 1 Mg/1 Ml Inj) 0.5 mg IV Q3H PRN PRN Reason: Pain , Severe (7-10) Pantoprazole Sodium 80 mg/ (Sodium Chloride) 100 mls @ 10 mls/hr IV DIRECT [facility] Last Admin: 05/29/21 08:55 Dose: 8 mg/hr, 10 mls/hr Morphine Sulfate (Morphine 2 Mg/1 Ml Inj) 2 mg IV Q4H PRN PRN Reason: Pain, Moderate (4-6) Ondansetron HCl (Ondansetron 4 Mg/2 Ml Inj) 4 mg IV Q8H PRN PRN Reason: Nausea And Vomiting Sodium Chloride (Sodium Chloride 0.9% 10 Ml Flush Syringe) 10 ml IV BID [facility] Last Admin: 05/29/21 09:01 Dose: 10 ml Sodium Chloride (Sodium Chloride 0.9% 10 Ml Flush Syringe) 10 ml IV PRN PRN PRN Reason: LINE FLUSH Exam - Vital Signs Vital signs: Vital Signs Temp Pulse Resp BP Pulse Ox 98 F 60 20 120/58 96 05/29/21 00:50 05/29/21 00:50 05/29/21 00:50 05/29/21 00:50 05/29/21 00:50 - Physical Exam Narrative exam: General appearance: Present: no acute distress, well-nourished - EENT Eyes: Present: PERRL ENT: hearing intact, clear oral mucosa - Neck Neck: Present: supple, normal ROM - Respiratory Respiratory effort: normal Respiratory: bilateral: diminished - Cardiovascular Heart Sounds: Present: S1 & S2. Absent: rub, click - Extremities Extremities: pulses symmetrical, No edema Peripheral Pulses: within normal limits - Abdominal General gastrointestinal: Present: soft, non-tender, non-distended, normal bowel sounds Female genitourinary: Present: normal - Integumentary Integumentary: Present: clear, warm, dry - Musculoskeletal Musculoskeletal: gait normal, strength equal bilaterally - Psychiatric Psychiatric: appropriate mood/affect, intact judgment & insight - Neurologic Neurologic: CNII-XII intact, moves all extremities Results - Lab Results 05/29/21 01:16 05/29/21 01:16 Most recent lab results Calcium 8.0 mg/dL (8.4-10.2) L 05/29/21 01:16 Assessment and Plan Assessment * End stage renal disease * Symptomatic anemia of ABL * Gi bleeding * Hypertension * Anemia secondary to ESRD Plan: * HD in am, TTHSAT as outpatient * strict i/os and daily lytes * GI evaluation of GI blood loss * PRN PRBCs * No heparin with HD * UF as tolerated * Epogen prn * Renal diet once advanced * Outpatient HD at [facility]
[2021-05-29] MEDS ORDERED: SODIUM CHLORIDE 0.9% 100 ML IV PRN (16:05)
[2021-05-29] MEDS ORDERED: ALBUMIN HUMAN 25% (25 GM/100 ML) INJ IV PRN (16:05)
--- NOTE | 2021-05-29 16:22 | Gastroenterology Consultation ---
History of Present Illness - Reason for Consult Consult date: 05/29/21 Melena Requesting physician: TOMASA HUYNH - History of Present Illness The patient was admitted with dark stools and ABLA. She has no hx of severe anemia or transfusions. She denies NSAIDs, and has no hx of PUD. She did have nausea and non-bloody emesis prior to the diarrhea, but but have resolved today, and she is tolerating clear liquids. She is not on any blood thinners, and she had a normal colonoscopy "several years ago" by her report. She has been on HD for 1 year by report. She currently has no abdominal pain, CP, or SOB. She has had no fevers since admit. Past History Past Medical History: ESRD, hypertension, hyperlipidemia, hypothyroidism, renal failure Past Surgical History: Other (Left arm dialysis access) Social history: no significant social history. denies: smoking Family history: no significant family history Medications and Allergies Allergies Allergy/AdvReac Type Severity Reaction Status Date / Time celecoxib [From Celebrex] Allergy FACE Verified 07/01/19 11:37 SWELLING sulfamethoxazole Allergy Swelling Verified 07/02/19 11:05 [From Bactrim] trimethoprim [From Bactrim] Allergy Swelling Verified 07/02/19 11:05 Home Medications Medication Instructions Recorded Confirmed Last Taken Type Acetaminophen [Non-Aspirin Extra 500 mg PO Q6HR PRN #30 tablet 07/23/20 Unknown Rx Strength] Active Meds: Active Medications Acetaminophen (Acetaminophen 325 Mg Tab) 650 mg PO Q4H PRN PRN Reason: Pain MILD(1-3)/Fever >100.5/LOVE Albumin Human (Albumin Human 25% (25 Gm/100 Ml) Inj) 25 gm IV ASHLEY PRN PRN Reason: Hypotension Epoetin Salas-epbx (Epoetin Salas-Epbx 20,000 Unit/1 Ml Vial) 20,000 unit IV ASHLEY PRN PRN Reason: hemodialysis Sodium Chloride (Nacl 0.9%) 100 mls @ 999 mls/hr IV ASHLEY PRN PRN Reason: Hypotension Morphine Sulfate (Morphine 2 Mg/1 Ml Inj) 2 mg IV Q4H PRN PRN Reason: Pain, Moderate (4-6) Ondansetron HCl (Ondansetron 4 Mg/2 Ml Inj) 4 mg IV Q8H PRN PRN Reason: Nausea And Vomiting Pantoprazole Sodium (Pantoprazole 40 Mg Inj) 40 mg IV BID [facility] Sodium Chloride (Sodium Chloride 0.9% 10 Ml Flush Syringe) 10 ml IV BID [facility] Last Admin: 05/29/21 09:01 Dose: 10 ml Sodium Chloride (Sodium Chloride 0.9% 10 Ml Flush Syringe) 10 ml IV PRN PRN PRN Reason: LINE FLUSH I have reviewed/reconciled medications. Review of Systems - Review of Systems All systems: negative (as noted in the HPI.) Exam - Constitutional Vital Signs: Temp Pulse Resp BP Pulse Ox 99.0 F 95 H 18 131/44 98 05/29/21 13:54 05/29/21 13:44 05/29/21 13:54 05/29/21 13:41 05/29/21 13:44 General appearance: no acute distress - EENT Eyes: PERRL, EOM intact ENT: hearing intact, clear oral mucosa, no thrush - Neck Neck: supple, normal ROM - Respiratory Respiratory effort: normal Respiratory: bilateral: CTA (VasCath R chest) - Cardiovascular Rhythm: regular Heart Sounds: Present: S1 & S2 Extremities: no ischemia, No edema - Gastrointestinal General gastrointestinal: Present: soft, non-tender, non-distended - Integumentary Integumentary: Present: clear, warm, dry, pale - Neurologic Neurological: alert and oriented x3 - Psychiatric Psychiatric: appropriate mood/affect - Labs CBC & Chem 7: 05/29/21 01:16 05/29/21 01:16 Lab Results: Laboratory Results - last 24 hr 05/29/21 05/29/21 05/29/21 01:16 01:16 01:52 WBC 7.5 RBC 1.56 L Hgb 5.3 L* Hct 15.9 L* MCV 102 H MCH 34 H MCHC 34 RDW 13.7 Plt Count 131 L Lymph % (Auto) 11.4 L [place] % (Auto) 4.9 Eos % (Auto) 0.5 Baso % (Auto) 0.3 Lymph # (Auto) 0.9 L [place] # (Auto) 0.4 Eos # (Auto) 0.0 Baso # (Auto) 0.0 Seg Neutrophils % 82.9 H Seg Neutrophils # 6.2 PT INR APTT Sodium 139 Potassium 4.8 Chloride 105.3 Carbon Dioxide 21 L Anion Gap 18 BUN 69 H Creatinine 2.5 H Estimated GFR 18 BUN/Creatinine Ratio 28 Glucose 112 H Calcium 8.0 L Total Bilirubin 0.20 AST 15 ALT 15 Alkaline Phosphatase 35 Total Protein 4.8 L Albumin 3.0 L Albumin/Globulin Ratio 1.7 Lipase 73 H Blood Type Antibody Screen Crossmatch 05/29/21 05/29/21 03:57 03:57 WBC RBC Hgb Hct MCV MCH MCHC RDW Plt Count Lymph % (Auto) [place] % (Auto) Eos % (Auto) Baso % (Auto) Lymph # (Auto) [place] # (Auto) Eos # (Auto) Baso # (Auto) Seg Neutrophils % Seg Neutrophils # PT 18.1 H INR 1.33 H APTT 32.3 Sodium Potassium Chloride Carbon Dioxide Anion Gap BUN Creatinine Estimated GFR BUN/Creatinine Ratio Glucose Calcium Total Bilirubin AST ALT Alkaline Phosphatase Total Protein Albumin Albumin/Globulin Ratio Lipase Blood Type A POSITIVE Antibody Screen Negative Crossmatch See Detail Assessment and Plan - Patient Problems (1) Melena Current Visit: Yes Status: Acute Plan to address problem: - Will continue protonix, and allow clears today, but NPO after midnight. - Will plan EGD in the AM to further evaluate; if no findings, may need colonoscopy. - Agree with transfusion, and OK to give heparin in HD if needed, but avoid NSAIDs/other blood thinners.
[2021-05-29 18:28] LABS: Bilirubin,Urine NEG (Negative); Blood,Urine SM (Negative); Color,Urine Straw (Yellow); Mucus,Urine FEW /HPF; Protein,Urine <15 mg/dL mg/dL (Negative); Urobilinogen,Urine < 2.0 mg/dL (<2.0)
[2021-05-29] MEDS: PANTOPRAZOLE 40 MG INJ IV SCH (21:36)
[2021-05-30] MEDS ORDERED: dilTIAZem 25 MG/5 ML INJ IV NR (02:00)
[2021-05-30] MEDS ORDERED: SODIUM CHLORIDE 0.9% 500 ML 500 ML IV ONE ×3 (03:00→11:20)
[2021-05-30 03:22] LABS: Basophils % (Auto) 0.4 % (0.0-1.8); Eosinophils # (Auto) 0.1 K/mm3 (0.0-0.4); Eosinophils % (Auto) 0.6 % (0.0-4.3); Hemoglobin 6.2 gm/dl (10.1-14.3); Lymphocytes # (Auto) 0.9 K/mm3 (1.2-5.4); Lymphocytes % (Auto) 8.9 % (13.4-35.0); Mean Corpuscular HGB Conc 33 % (30-34); Mean Corpuscular Volume 91 fl (79-97); Monocytes # (Auto) 0.9 K/mm3 (0.0-0.8); Monocytes % (Auto) 8.5 % (0.0-7.3); Platelet Count 108 K/mm3 (140-440); Red Blood Count 2.05 M/mm3 (3.65-5.03); Red Cell Distribution Width 17.5 % (13.2-15.2)
[2021-05-30 03:33] LABS: Calcium 7.5 mg/dL (8.4-10.2)
[2021-05-30 03:34] LABS: Hematocrit 18.7 % (30.3-42.9)
[2021-05-30] MEDS ORDERED: SODIUM CHLORIDE 0.9% 500 ML 500 ML IV NR (03:42)
[2021-05-30 03:51] LABS: Hepatitis B Surface Antigen Non-Reactive (Negative); Hepatitis C Virus Antibody Non-Reactive (NonReactive)
--- NOTE | 2021-05-30 08:11 | Progress Note ---
Assessment and Plan Assessment and plan: --Atrial fibrillation with rapid ventricular rate; Current Visit: Yes Status: Acute Amiodarone loading dose and amiodarone drip per protocol Cardiology consulted, discussed with Due to severe anemia and GI bleeding Anticoagulation cannot be started, closely monitor Transfer the patient to ICU for close observation and management Discussed with ICU charge nurse Critical care consult placed discussed with behavioral health specialist informed -Severe anemia 5.3-6.2 Current Visit: Yes Status: Acute Received 2 units PRBC transfusion yesterday Requested 1 unit additional transfusion today closely monitor H&H, GI following --Melena/upper GI bleeding Current Visit: Yes Status: Acute N.p.o. status, Protonix drip, closely monitor H&H Transfuse additional PRBC GI evaluation noted and appreciated Endoscopy today -- ESRD needing dialysis Current Visit: No Status: Acute Avoid nephrotoxic drug. Nephrology following -- Hypertension Current Visit: Yes Status: Acute Now hypotension , due to hypovolemia , fluid bolus , blood transfusion Closely monitor --DVT prophylaxis Current Visit: Yes Status: Acute SCD for DVT prophylaxis. GI evaluation and recommendations noted and appreciated Endoscopy today Renal evaluation recommendation noted and appreciated Hemodialysis per schedule Closely monitor the patient and adjust the management as needed Prolonged care total time 32 minutes Advance care planning; + 30 minutes I discussed the patient's condition, tests and reports with the family/daughter I also discussed the patient's diagnosis, discussed the treatment plan Discussed evaluation by cardiology ,GI, also informed her that we are transferring the patient to ICU due to A. fib with RVR Discussed with the patient's family nephrology managing the dialysis per schedu le Discussed about the severity of severe anemia and the need for blood transfusion Distant complications of blood transfusion discussed with the patient's family Answered all their questions, additional time spent 32 minutes Follow endoscopy findings and address as needed Follow cardiology evaluation recommendations Plan of care reviewed with the patient, her nurse, her family and the case manag dawn Critical care time 60 minutes 05/30/2021; patient went into A. fib with rapid ventricular rate, cardiology consulted Started amiodarone drip, transfer to ICU for close observation Unable to start anticoagulation due to severe anemia and GI bleeding. Endoscopy rescheduled for tomorrow Continue to monitor in ICU Disposition; stabilized and transferred to the floor, discharge when stable and cleared by consultants History Interval history: I have seen and examined the patient at the bedside this morning Patient's chart and medications reviewed Patient is mildly hypotensive, has tachycardia EKG showed A. fib with rapid ventricular rate. Discussed with cardiology, started on amiodarone loading dose and followed by a drip Making plans to transfer the patient to ICU Hospitalist Physical - Constitutional Vitals: Temp Pulse Resp BP Pulse Ox 98.6 F 92 H 17 90/28 92 05/30/21 05:51 05/30/21 05:51 05/30/21 05:51 05/30/21 05:51 05/30/21 05:51 General appearance: Present: mild distress, well-nourished, other - EENT Eyes: Present: PERRL, EOM intact (Responding appropriately) - Neck Neck: Present: supple, normal ROM - Respiratory Respiratory effort: normal Respiratory: bilateral: diminished, negative: rales, rhonchi, wheezing - Cardiovascular Rhythm: irregularly irregular (Tachycardia) Heart Sounds: Present: S1 & S2 - Extremities Extremities: no ischemia, No edema - Abdominal General gastrointestinal: soft, non-tender, non-distended, normal bowel sounds - Integumentary Integumentary: Present: clear, warm - Psychiatric Psychiatric: appropriate mood/affect, cooperative - Neurologic Neurologic: moves all extremities Results - Labs CBC & Chem 7: 05/30/21 03:03 05/30/21 03:03 Labs: Laboratory Last Values WBC 10.1 K/mm3 (4.5-11.0) 05/30/21 03:03 RBC 2.05 M/mm3 (3.65-5.03) L 05/30/21 03:03 Hgb 6.2 gm/dl (10.1-14.3) L 05/30/21 03:03 Hct 18.7 % (30.3-42.9) L* 05/30/21 03:03 MCV 91 fl (79-97) 05/30/21 03:03 MCH 30 pg (28-32) 05/30/21 03:03 MCHC 33 % (30-34) 05/30/21 03:03 RDW 17.5 % (13.2-15.2) H 05/30/21 03:03 Plt Count 108 K/mm3 (140-440) L 05/30/21 03:03 Lymph % (Auto) 8.9 % (13.4-35.0) L 05/30/21 03:03 [place] % (Auto) 8.5 % (0.0-7.3) H 05/30/21 03:03 Eos % (Auto) 0.6 % (0.0-4.3) 05/30/21 03:03 Baso % (Auto) 0.4 % (0.0-1.8) 05/30/21 03:03 Lymph # (Auto) 0.9 K/mm3 (1.2-5.4) L 05/30/21 03:03 [place] # (Auto) 0.9 K/mm3 (0.0-0.8) H 05/30/21 03:03 Eos # (Auto) 0.1 K/mm3 (0.0-0.4) 05/30/21 03:03 Baso # (Auto) 0.0 K/mm3 (0.0-0.1) 05/30/21 03:03 Seg Neutrophils % 81.6 % (40.0-70.0) H 05/30/21 03:03 Seg Neutrophils # 8.3 K/mm3 (1.8-7.7) H 05/30/21 03:03 PT 18.1 Sec. (12.2-14.9) H 05/29/21 03:57 INR 1.33 (0.87-1.13) H 05/29/21 03:57 APTT 32.3 Sec. (24.2-36.6) 05/29/21 03:57 Sodium 138 mmol/L (137-145) 05/30/21 03:03 Potassium 5.2 mmol/L (3.6-5.0) H 05/30/21 03:03 Chloride 106.1 mmol/L (98-107) 05/30/21 03:03 Carbon Dioxide 18 mmol/L (22-30) L 05/30/21 03:03 Anion Gap 19 mmol/L 05/30/21 03:03 BUN 135 mg/dL (7-17) H 05/30/21 03:03 Creatinine 4.1 mg/dL (0.6-1.2) H D 05/30/21 03:03 Estimated GFR 10 ml/min 05/30/21 03:03 BUN/Creatinine Ratio 33 % 05/30/21 03:03 Glucose 163 mg/dL (65-100) H 05/30/21 03:03 Calcium 7.5 mg/dL (8.4-10.2) L 05/30/21 03:03 Total Bilirubin 0.20 mg/dL (0.1-1.2) 05/29/21 01:16 AST 15 units/L (5-40) 05/29/21 01:16 ALT 15 units/L (7-56) 05/29/21 01:16 Alkaline Phosphatase 35 units/L (35-129) 05/29/21 01:16 Total Protein 4.8 g/dL (6.3-8.2) L 05/29/21 01:16 Albumin 3.0 g/dL (3.9-5) L 05/29/21 01:16 Albumin/Globulin Ratio 1.7 % 05/29/21 01:16 Lipase 73 units/L (13-60) H 05/29/21 01:52 Urine Color Straw (Yellow) 05/29/21 06:35 Urine Turbidity Clear (Clear) 05/29/21 06:35 Urine pH 7.0 (5.0-7.0) 05/29/21 06:35 Ur Specific [place] 1.011 (1.003-1.030) 05/29/21 06:35 Urine Protein <15 mg/dl mg/dL (Negative) 05/29/21 06:35 Urine Glucose (UA) Neg mg/dL (Negative) 05/29/21 06:35 Urine Ketones Neg mg/dL (Negative) 05/29/21 06:35 Urine Blood Sm (Negative) 05/29/21 06:35 Urine Nitrite Neg (Negative) 05/29/21 06:35 Urine Bilirubin Neg (Negative) 05/29/21 06:35 Urine Urobilinogen < 2.0 mg/dL (<2.0) 05/29/21 06:35 Ur Leukocyte Esterase Sm (Negative) 05/29/21 06:35 Urine WBC (Auto) 10.0 /HPF (0.0-6.0) H 05/29/21 06:35 Urine RBC (Auto) 1.0 /HPF (0.0-6.0) 05/29/21 06:35 U Epithel Cells (Auto) < 1.0 /HPF (0-13.0) 05/29/21 06:35 Urine Mucus Few /HPF 05/29/21 06:35 Urine Yeast (Budding) Few /HPF 05/29/21 06:35 Hep Bs Antigen Non-reactive (Negative) 05/30/21 03:03 Hep B Core IgM Ab Non-reactive (NonReactive) 05/30/21 03:03 Hepatitis C Antibody Non-reactive (NonReactive) 05/30/21 03:03 Blood Type A POSITIVE 05/29/21 03:57 Antibody Screen Negative 05/29/21 03:57 Crossmatch See Detail 05/29/21 03:57 Benjamin/IV: Voiding Method External Female Catheter Active Medications - Current Medications Current Medications: Generic Name Dose Route Start Last Admin Trade Name Freq PRN Reason Stop Dose Admin Acetaminophen 650 mg 05/29/21 05:28 Acetaminophen 325 Mg Tab PO Q4H PRN Pain MILD(1-3)/Fever >100.5/LOVE Albumin Human 25 gm 05/29/21 16:05 Albumin Human 25% (25 Gm/100 Ml) Inj IV ASHLEY PRN Hypotension Epoetin Salas-epbx 20,000 unit 05/29/21 16:05 Epoetin Salas-Epbx 20,000 Unit/1 Ml Vial IV ASHLEY PRN hemodialysis Sodium Chloride 100 mls @ 999 mls/hr 05/29/21 16:05 Nacl 0.9% IV ASHLEY PRN Hypotension Morphine Sulfate 2 mg 05/29/21 05:28 Morphine 2 Mg/1 Ml Inj IV Q4H PRN Pain, Moderate (4-6) Ondansetron HCl 4 mg 05/29/21 05:28 Ondansetron 4 Mg/2 Ml Inj IV Q8H PRN Nausea And Vomiting Pantoprazole Sodium 40 mg 05/29/21 22:00 05/29/21 21:36 Pantoprazole 40 Mg Inj IV 40 mg BID ELAINE Administration Sodium Chloride 10 ml 05/29/21 10:00 05/29/21 21:36 Sodium Chloride 0.9% 10 Ml Flush Syringe IV 10 ml BID ELAINE Administration Sodium Chloride 10 ml 05/29/21 05:28 Sodium Chloride 0.9% 10 Ml Flush Syringe IV PRN PRN LINE FLUSH
--- NOTE | 2021-05-30 08:49 | Progress Note ---
Assessment and Plan Assessment * End stage renal disease (Outpatient HD at [facility]) * Symptomatic anemia of ABL * GI bleed * Azotemia - multifactorial, 2/2 GI bleed vs ESRD * Hypertension * Secondary hyperparathyroidism Plan: * Hemodialysis today -UF a tolerated * Transfuse pRBC per primary team - Hb 6.2 this AM * GI recommendations noted - note plans for EGD today * Epogen prn * Diet per GI - resume renal diet once advanced * AM labs * Dose medications for renal function Subjective Date of service: 05/30/21 Interval history: Chart, vitals, events reviewed Objective - Vital Signs Vital signs: Vital Signs - 12hr 05/29/21 05/30/21 05/30/21 22:30 01:00 01:45 Temperature Pulse Rate 78 145 H Respiratory 17 Rate Blood Pressure Blood Pressure 115/65 [Right] O2 Sat by Pulse 97 97 Oximetry 05/30/21 05/30/21 05/30/21 02:08 02:30 03:12 Temperature Pulse Rate 158 H 125 H Respiratory Rate Blood Pressure 128/58 Blood Pressure 97/20 [Right] O2 Sat by Pulse Oximetry 05/30/21 05/30/21 05:51 08:11 Temperature 98.6 F Pulse Rate 92 H Respiratory 17 Rate Blood Pressure Blood Pressure 90/28 [Right] O2 Sat by Pulse 92 100 Oximetry - General Appearance General appearance: well-developed, well-nourished EENT: ATNC Neck: other (RIJ permcath) Respiratory: Present: Clear to Ascultation Cardiology: regular, S1S2 Gastrointestinal: normal, no tenderness, no distended Integumentary: warm and dry Psychiatric: cooperative - Lab 05/30/21 03:03 05/30/21 03:03 Most recent lab results Calcium 7.5 mg/dL (8.4-10.2) L 05/30/21 03:03 Medications & Allergies - Medications Allergies/Adverse Reactions: Allergies celecoxib [From Celebrex] Allergy (Verified 07/01/19 11:37) FACE SWELLING sulfamethoxazole [From Bactrim] Allergy (Verified 07/02/19 11:05) Swelling trimethoprim [From Bactrim] Allergy (Verified 07/02/19 11:05) Swelling Home Medications: Home Medications Medication Instructions Recorded Confirmed Last Taken Type Acetaminophen [Non-Aspirin Extra 500 mg PO Q6HR PRN #30 tablet 07/23/20 Unknown Rx Strength] Active Medications: Generic Name Dose Route Start Last Admin Trade Name Freq PRN Reason Stop Dose Admin Acetaminophen 650 mg 05/29/21 05:28 Acetaminophen 325 Mg Tab PO Q4H PRN Pain MILD(1-3)/Fever >100.5/LOVE Albumin Human 25 gm 05/29/21 16:05 Albumin Human 25% (25 Gm/100 Ml) Inj IV ASHLEY PRN Hypotension Epoetin Salas-epbx 20,000 unit 05/29/21 16:05 Epoetin Salas-Epbx 20,000 Unit/1 Ml Vial IV ASHLEY PRN hemodialysis Sodium Chloride 100 mls @ 999 mls/hr 05/29/21 16:05 Nacl 0.9% IV ASHLEY PRN Hypotension Sodium Chloride 250 mls @ 999 mls/hr 05/30/21 09:00 05/30/21 08:34 Nacl 0.9% 250ml IV 05/30/21 14:00 999 mls/hr ONCE@0900 ELAINE Administration Morphine Sulfate 2 mg 05/29/21 05:28 Morphine 2 Mg/1 Ml Inj IV Q4H PRN Pain, Moderate (4-6) Ondansetron HCl 4 mg 05/29/21 05:28 Ondansetron 4 Mg/2 Ml Inj IV Q8H PRN Nausea And Vomiting Pantoprazole Sodium 40 mg 05/29/21 22:00 05/29/21 21:36 Pantoprazole 40 Mg Inj IV 40 mg BID ELAINE Administration Sodium Chloride 10 ml 05/29/21 10:00 05/29/21 21:36 Sodium Chloride 0.9% 10 Ml Flush Syringe IV 10 ml BID ELAINE Administration Sodium Chloride 10 ml 05/29/21 05:28 Sodium Chloride 0.9% 10 Ml Flush Syringe IV PRN PRN LINE FLUSH
[2021-05-30] MEDS ORDERED: SODIUM CHLORIDE 0.9% 250ML 250 ML IV SCH (09:00)
[2021-05-30] MEDS ORDERED: dilTIAZem/D5W 100 MG/100 ML BAG IV SCH (10:00)
[2021-05-30] MEDS: PANTOPRAZOLE 40 MG INJ IV SCH ×2 (10:14→22:15)
[2021-05-30] MEDS: AMIODARONE 900 MG in DEXTROSE 5% IN WATER 482 ML IV SCH (10:14)
[2021-05-30] MEDS ORDERED: AMIODARONE 150 MG in DEXTROSE 5% IN WATER 97 ML IV ONE (10:40)
--- NOTE | 2021-05-30 11:30 | Gastroenterology Progress Note ---
Assessment and Plan - Patient Problems (1) Melena Current Visit: Yes Status: Acute Plan to address problem: - Will continue protonix, and allow clears today, but NPO after midnight. - Will plan EGD when in ICU and rate controlled/after HD with further transfusion. - Continue to hold anticoagulation. (2) ESRD on hemodialysis Current Visit: Yes Status: Acute (3) Atrial fibrillation with rapid ventricular response Current Visit: Yes Status: Acute Subjective Date of service: 05/30/21 Principal diagnosis: ABLA Interval history: The patient had an acute episode of AF with RVR this AM, but has had no bleeding overnight. Her hct remains at 18 after transfusion, and her BP is still low (SBP in the 90s). She has had no N/V with clear liquids yesterday. Objective - Constitutional Vitals: Temp Pulse Resp BP Pulse Ox 97.8 F 115 H 16 94/28 83 L 05/30/21 08:11 05/30/21 11:21 05/30/21 11:21 05/30/21 11:21 05/30/21 11:21 General appearance: mild distress - Respiratory Respiratory effort: normal Respiratory: bilateral: CTA - Cardiovascular Heart Rate: 110 Rhythm: irregularly irregular - Gastrointestinal General gastrointestinal: Present: soft, non-tender, non-distended - Labs CBC & Chem 7: 05/30/21 03:03 05/30/21 03:03 Labs: Laboratory Results - last 24 hr 05/29/21 05/29/21 05/30/21 03:57 06:35 03:03 WBC RBC Hgb Hct MCV MCH MCHC RDW Plt Count Lymph % (Auto) [place] % (Auto) Eos % (Auto) Baso % (Auto) Lymph # (Auto) [place] # (Auto) Eos # (Auto) Baso # (Auto) Seg Neutrophils % Seg Neutrophils # Sodium Potassium Chloride Carbon Dioxide Anion Gap BUN Creatinine Estimated GFR BUN/Creatinine Ratio Glucose Calcium Urine Color Straw Urine Turbidity Clear Urine pH 7.0 Ur Specific [place] 1.011 Urine Protein <15 mg/dl Urine Glucose (UA) Neg Urine Ketones Neg Urine Blood Sm Urine Nitrite Neg Urine Bilirubin Neg Urine Urobilinogen < 2.0 Ur Leukocyte Esterase Sm Urine WBC (Auto) 10.0 H Urine RBC (Auto) 1.0 U Epithel Cells (Auto) < 1.0 Urine Mucus Few Urine Yeast (Budding) Few Hep Bs Antigen Non-reactive Hep B Core IgM Ab Non-reactive Hepatitis C Antibody Non-reactive Blood Type A POSITIVE Antibody Screen Negative Crossmatch See Detail 05/30/21 05/30/21 03:03 03:03 WBC 10.1 RBC 2.05 L Hgb 6.2 L Hct 18.7 L* MCV 91 MCH 30 MCHC 33 RDW 17.5 H Plt Count 108 L Lymph % (Auto) 8.9 L [place] % (Auto) 8.5 H Eos % (Auto) 0.6 Baso % (Auto) 0.4 Lymph # (Auto) 0.9 L [place] # (Auto) 0.9 H Eos # (Auto) 0.1 Baso # (Auto) 0.0 Seg Neutrophils % 81.6 H Seg Neutrophils # 8.3 H Sodium 138 Potassium 5.2 H Chloride 106.1 Carbon Dioxide 18 L Anion Gap 19 BUN 135 H Creatinine 4.1 H D Estimated GFR 10 BUN/Creatinine Ratio 33 Glucose 163 H Calcium 7.5 L Urine Color Urine Turbidity Urine pH Ur Specific [place] Urine Protein Urine Glucose (UA) Urine Ketones Urine Blood Urine Nitrite Urine Bilirubin Urine Urobilinogen Ur Leukocyte Esterase Urine WBC (Auto) Urine RBC (Auto) U Epithel Cells (Auto) Urine Mucus Urine Yeast (Budding) Hep Bs Antigen Hep B Core IgM Ab Hepatitis C Antibody Blood Type Antibody Screen Crossmatch
--- NOTE | 2021-05-30 12:57 | Consultation ---
History of Present Illness Consult date: 05/30/21 Requesting physician: TOMASA HUYNH Reason for consult: other (severe anemia, hypotension, afib with RVR) History of present illness: 80 years old female with past medical history of hypertension, end-stage renal disease on dialysis was brought to the emergency room because of diarrhea x 1 days (multiple bouts) without blood or mucus. Endorses non bloody,non bilious emesis,dizziness. Denies recent travel, known sick contacts, antibiotics, eating out or any unusual or reheated foods. Denies abdominal pain In the emergency room patient is found to have hemoglobin of 5.3 and hematocrit 15.9. Admitted and transferred to the ICU for hypotension and Afib with RVR. A critical care consult was placed. Patient seen and examined. Her friend is at the bedside Vitals, labs, medications, chart reviewed. The patient states she vomited once after her last HD session, then proceeded to have multiple black taryy diarrheal stools. She passed out and then presented to the ED Past History Past Medical History: ESRD, hypertension, hyperlipidemia, hypothyroidism, renal failure Past Surgical History: Other (Left arm dialysis access) Social history: no significant social history. denies: smoking Family history: no significant family history Medications and Allergies Allergies Allergy/AdvReac Type Severity Reaction Status Date / Time celecoxib [From Celebrex] Allergy FACE Verified 05/30/21 12:42 SWELLING sulfamethoxazole Allergy Swelling Verified 05/30/21 12:42 [From Bactrim] trimethoprim [From Bactrim] Allergy Swelling Verified 05/30/21 12:42 Active Meds: Active Medications Acetaminophen (Acetaminophen 325 Mg Tab) 650 mg PO Q4H PRN PRN Reason: Pain MILD(1-3)/Fever >100.5/LOVE Albumin Human (Albumin Human 25% (25 Gm/100 Ml) Inj) 25 gm IV ASHLEY PRN PRN Reason: Hypotension Epoetin Salas-epbx (Epoetin Salas-Epbx 20,000 Unit/1 Ml Vial) 20,000 unit IV ASHLEY PRN PRN Reason: hemodialysis Sodium Chloride (Nacl 0.9%) 100 mls @ 999 mls/hr IV ASHLEY PRN PRN Reason: Hypotension Sodium Chloride (Nacl 0.9% 250ml) 250 mls @ 999 mls/hr IV ONCE@0900 ELAINE Stop: 05/30/21 14:00 Last Admin: 05/30/21 08:34 Dose: 999 mls/hr Amiodarone HCl 900 mg/ (Dextrose) 500 mls @ 33.333 mls/hr IV DIRECT ELAINE; Protocol Last Admin: 05/30/21 10:14 Dose: 1 mg/min, 33.333 mls/hr Morphine Sulfate (Morphine 2 Mg/1 Ml Inj) 2 mg IV Q4H PRN PRN Reason: Pain, Moderate (4-6) Ondansetron HCl (Ondansetron 4 Mg/2 Ml Inj) 4 mg IV Q8H PRN PRN Reason: Nausea And Vomiting Pantoprazole Sodium (Pantoprazole 40 Mg Inj) 40 mg IV BID ELAINE Last Admin: 05/30/21 10:14 Dose: 40 mg Sodium Chloride (Sodium Chloride 0.9% 10 Ml Flush Syringe) 10 ml IV BID ELAINE Last Admin: 05/30/21 10:14 Dose: 10 ml Sodium Chloride (Sodium Chloride 0.9% 10 Ml Flush Syringe) 10 ml IV PRN PRN PRN Reason: LINE FLUSH Review of Systems Constitutional: no weight loss, no weight gain, no fever, no chills, no sweats Cardiovascular: syncope, no chest pain, no orthopnea, no palpitations, no rapid/irregular heart beat, no edema Respiratory: no cough, no cough with sputum, no hemoptysis, no shortness of breath, no dyspnea on exertion Gastrointestinal: abdominal pain, vomiting, diarrhea, melena Neurological: no head injury, no transient paralysis, no weakness, no parathesias Physical Examination Vital signs: Vital Signs Temp Pulse Resp BP Pulse Ox 98 F 60 20 120/58 96 05/29/21 00:50 05/29/21 00:50 05/29/21 00:50 05/29/21 00:50 05/29/21 00:50 General appearance: Present: no acute distress, frail elderly woman - EENT Eyes: Present: PERRL ENT: hearing intact, clear oral mucosa - Neck Neck: Present: supple, normal ROM - Respiratory Respiratory effort: normal Respiratory: bilateral: diminished - Cardiovascular Heart Sounds: Present: S1 & S2. Absent: rub, click, irregular rate and rhythm - Extremities Extremities: pulses symmetrical, No edema Peripheral Pulses: within normal limits - Abdominal General gastrointestinal: Present: soft, non-tender, non-distended, normal bowel sounds Female genitourinary: Present: normal - Integumentary Integumentary: Present: clear, warm, dry - Musculoskeletal Musculoskeletal: gait normal, strength equal bilaterally - Psychiatric Psychiatric: appropriate mood/affect, intact judgment & insight - Neurologic Neurologic: CNII-XII intact, moves all extremities Results - Laboratory Findings CBC and BMP: 05/31/21 14:19 05/31/21 04:15 PT/INR, D-dimer PT 18.1 Sec. (12.2-14.9) H 05/29/21 03:57 INR 1.33 (0.87-1.13) H 05/29/21 03:57 Abnormal lab findings: Abnormal Labs 05/29/21 05/29/21 05/29/21 01:16 01:16 01:52 RBC 1.56 L Hgb 5.3 L* Hct 15.9 L* MCV 102 H MCH 34 H RDW Plt Count 131 L Lymph % (Auto) 11.4 L [place] % (Auto) Lymph # (Auto) 0.9 L [place] # (Auto) Seg Neutrophils % 82.9 H Seg Neutrophils # PT INR Potassium Carbon Dioxide 21 L BUN 69 H Creatinine 2.5 H Glucose 112 H Calcium 8.0 L Total Protein 4.8 L Albumin 3.0 L Lipase 73 H Urine WBC (Auto) Crossmatch 05/29/21 05/29/21 05/29/21 03:57 03:57 06:35 RBC Hgb Hct MCV MCH RDW Plt Count Lymph % (Auto) [place] % (Auto) Lymph # (Auto) [place] # (Auto) Seg Neutrophils % Seg Neutrophils # PT 18.1 H INR 1.33 H Potassium Carbon Dioxide BUN Creatinine Glucose Calcium Total Protein Albumin Lipase Urine WBC (Auto) 10.0 H Crossmatch See Detail 05/30/21 05/30/21 03:03 03:03 RBC 2.05 L Hgb 6.2 L Hct 18.7 L* MCV MCH RDW 17.5 H Plt Count 108 L Lymph % (Auto) 8.9 L [place] % (Auto) 8.5 H Lymph # (Auto) 0.9 L [place] # (Auto) 0.9 H Seg Neutrophils % 81.6 H Seg Neutrophils # 8.3 H PT INR Potassium 5.2 H Carbon Dioxide 18 L BUN 135 H Creatinine 4.1 H D Glucose 163 H Calcium 7.5 L Total Protein Albumin Lipase Urine WBC (Auto) Crossmatch Assessment and Plan Atrial Fibrillation with Rapid Ventricular Rate Hypotension, acute blood loss anemia h/o Hypertension Severe Anemia Thrombocytopenia Melena/ Upper GI Bleeding ESRD on HD- MWF -Therapeutic pantoprazole -Amiodarone for rate control -Transfuse PRBC, follow hemoglobin -EGD when hemodynamics are more stable -SCDs for VTE prophylaxis -Vasopressor support as indicated to keep MAP >65, hemorrhagic shock -NPO for now - Patient not a candidate for Anticoagulation at this time due to severe anemia and possible GIB -Avoid nephrotoxins, adjust all medications for GFR -Hold all antihypertensives and home medications for now -Supportive HD per Renal service- no UF until hemodynamics improve The high probability of a clinically significant, sudden or life threatening deterioration of the [GI, cardiovascular, renal] system(s) required my full and direct attention, intervention and personal management. The aggregate critical care time was [35] minutes. This time is in addition to time spent performing reported procedures but includes the following: [x] Data Review and interpretation [x] Patient assessment and monitoring of vital signs [x] Documentation
[2021-05-30] MEDS ORDERED: HYDROCORTISONE 1% CREAM 28.4GM TP PRN (14:00)
[2021-05-30] MEDS ORDERED: SODIUM CHLORIDE 0.9% 250ML 250 ML IV ONE (14:00)
[2021-05-30] MEDS ORDERED: METOPROLOL TARTRATE 5 MG/5 ML INJ IV PRN (16:00)
--- NOTE | 2021-05-30 17:58 | Consultation ---
History of Present Illness Consult date: 05/30/21 Consult reason: atrial fibrillation History of present illness: The patient is an 80-year-old woman with end-stage renal disease on hemodialysis, who was admitted several days ago with profound anemia, hematocrit of 15. She is being evaluated for probable lower GI bleed. After several units of blood, hematocrit on follow-up is still low at 18. Today, while on the telemetry floor, she was noted to convert from a stable sinus rhythm to atrial fibrillation with rapid ventricular rate. ECG showed a rapid ventricular rate in the 140s. The patient was transferred to the CCU and cardiac consultation was requested. Patient is comfortable, denies any chest pain or significant palpitations. There is no shortness of breath. She denies any prior known history of atrial fibrillation. She is unaware of prior therapy with oral anticoagulants. Past History Past Medical History: ESRD, hypertension, hyperlipidemia, hypothyroidism, renal failure Past Surgical History: Other (Left arm dialysis access) Social history: no significant social history. denies: smoking Family history: no significant family history Medications and Allergies Allergies Allergy/AdvReac Type Severity Reaction Status Date / Time celecoxib [From Celebrex] Allergy FACE Verified 05/30/21 12:42 SWELLING sulfamethoxazole Allergy Swelling Verified 05/30/21 12:42 [From Bactrim] trimethoprim [From Bactrim] Allergy Swelling Verified 05/30/21 12:42 Active Meds: Active Medications Acetaminophen (Acetaminophen 325 Mg Tab) 650 mg PO Q4H PRN PRN Reason: Pain MILD(1-3)/Fever >100.5/LOVE Albumin Human (Albumin Human 25% (25 Gm/100 Ml) Inj) 25 gm IV ASHLEY PRN PRN Reason: Hypotension Digoxin (Digoxin 0.5 Mg/2 Ml Inj) 0.25 mg IV Q6HR ELAINE Stop: 05/30/21 18:01 Digoxin (Digoxin 0.125 Mg Tab) 0.125 mg PO DAILY@1700 ELAINE Epoetin Salas-epbx (Epoetin Salas-Epbx 20,000 Unit/1 Ml Vial) 20,000 unit IV ASHLEY PRN PRN Reason: hemodialysis Hydrocortisone Acetate (Hydrocortisone 1% Cream 28.4gm) 1 applic TP Q8H PRN PRN Reason: Skin Irritation Sodium Chloride (Nacl 0.9%) 100 mls @ 999 mls/hr IV ASHLEY PRN PRN Reason: Hypotension Amiodarone HCl 900 mg/ (Dextrose) 500 mls @ 33.333 mls/hr IV DIRECT ELAINE; Protocol Last Admin: 05/30/21 10:14 Dose: 1 mg/min, 33.333 mls/hr Metoprolol Tartrate (Metoprolol Tartrate 5 Mg/5 Ml Inj) 2.5 mg IV Q6HR PRN PRN Reason: HR >120 Morphine Sulfate (Morphine 2 Mg/1 Ml Inj) 2 mg IV Q4H PRN PRN Reason: Pain, Moderate (4-6) Ondansetron HCl (Ondansetron 4 Mg/2 Ml Inj) 4 mg IV Q8H PRN PRN Reason: Nausea And Vomiting Pantoprazole Sodium (Pantoprazole 40 Mg Inj) 40 mg IV BID [facility] Last Admin: 05/30/21 10:14 Dose: 40 mg Sodium Chloride (Sodium Chloride 0.9% 10 Ml Flush Syringe) 10 ml IV BID [facility] Last Admin: 05/30/21 10:14 Dose: 10 ml Sodium Chloride (Sodium Chloride 0.9% 10 Ml Flush Syringe) 10 ml IV PRN PRN PRN Reason: LINE FLUSH Review of Systems Cardiovascular: rapid/irregular heart beat, shortness of breath, no chest pain, no orthopnea, no palpitations, no edema, no syncope, no lightheadedness Physical Examination Vital Signs Temp Pulse Resp BP Pulse Ox 98 F 60 20 120/58 96 05/29/21 00:50 05/29/21 00:50 05/29/21 00:50 05/29/21 00:50 05/29/21 00:50 General appearance: no acute distress HEENT: Positive: PERRL Neck: Positive: neck supple Cardiac: Positive: irregularly irregular Lungs: Positive: Decreased Breath Sounds Neuro: Positive: Grossly Intact Abdomen: Positive: Soft Extremities: Absent: edema Results 05/30/21 03:03 05/30/21 03:03 CBC 05/30/21 Range/Units 03:03 WBC 10.1 (4.5-11.0) K/mm3 RBC 2.05 L (3.65-5.03) M/mm3 Hgb 6.2 L (10.1-14.3) gm/dl Hct 18.7 L* (30.3-42.9) % Plt Count 108 L (140-440) K/mm3 Lymph # (Auto) 0.9 L (1.2-5.4) K/mm3 [place] # (Auto) 0.9 H (0.0-0.8) K/mm3 Eos # (Auto) 0.1 (0.0-0.4) K/mm3 Baso # (Auto) 0.0 (0.0-0.1) K/mm3 Comprehensive Metabolic Panel 05/30/21 Range/Units 03:03 Sodium 138 (137-145) mmol/L Potassium 5.2 H (3.6-5.0) mmol/L Chloride 106.1 (98-107) mmol/L Carbon Dioxide 18 L (22-30) mmol/L BUN 135 H (7-17) mg/dL Creatinine 4.1 H D (0.6-1.2) mg/dL Glucose 163 H (65-100) mg/dL Calcium 7.5 L (8.4-10.2) mg/dL EKG interpretations - Telemetry EKG Rhythm: Atrial Fibrillation (With rapid ventricular rate) Assessment and Plan - Patient Problems (1) Atrial fibrillation with rapid ventricular response Current Visit: Yes Status: Acute Plan to address problem: 80-year-old woman admitted with severe anemia, hematocrit of 15, suspected GI bleeding.. She has developed acute, rapid atrial fibrillation. We will treat with intravenous amiodarone, intravenous metoprolol and intravenous digoxin. Further cardiac management will depend on clinical course. Due to the active and ongoing profound anemia, patient is not a candidate for anticoagulation now or in the near term in the outpatient.
[2021-05-30] MEDS: EPOETIN ALFA-EPBX 20,000 UNIT/1 ML VIAL IV PRN (22:38)
[2021-05-31] MEDS: ACETAMINOPHEN 325 MG TAB PO PRN (01:00)
[2021-05-31] MEDS: MORPHINE 2 MG/1 ML INJ IV PRN ×2 (03:48→23:48)
[2021-05-31] MEDS: AMIODARONE 900 MG in DEXTROSE 5% IN WATER 482 ML IV SCH (04:54)
[2021-05-31 05:22] LABS: Basophils % (Auto) 0.2 % (0.0-1.8); Eosinophils # (Auto) 0.1 K/mm3 (0.0-0.4); Eosinophils % (Auto) 0.7 % (0.0-4.3); Hematocrit 28.2 % (30.3-42.9); Hemoglobin 9.3 gm/dl (10.1-14.3); Lymphocytes % (Auto) 7.3 % (13.4-35.0); Mean Corpuscular HGB Conc 33 % (30-34); Mean Corpuscular Volume 83 fl (79-97); Monocytes # (Auto) 1.3 K/mm3 (0.0-0.8); Monocytes % (Auto) 9.8 % (0.0-7.3); Platelet Count 101 K/mm3 (140-440); Red Blood Count 3.42 M/mm3 (3.65-5.03); Red Cell Distribution Width 20.2 % (13.2-15.2)
[2021-05-31 05:43] LABS: Calcium 7.6 mg/dL (8.4-10.2)
[2021-05-31] MEDS ORDERED: WATER FOR IRRIG STERILE 1,000 ML BOTTLE ONE (06:29)
[2021-05-31] MEDS ORDERED: WATER FOR IRRIG STERILE 250 ML BOTTLE IR ONE (06:29)
[2021-05-31] MEDS ORDERED: SODIUM CHLORIDE 0.9% 1000 ML 1,000 ML ONE (07:14)
[2021-05-31] MEDS ORDERED: propofoL 200 MG/20 ML VIAL IV ONE (07:26)
[2021-05-31] MEDS ORDERED: LIDOCAINE MPF (2%) 20 MG/1 ML VIAL 5 ML ONE (07:26)
--- NOTE | 2021-05-31 07:45 | Anesthesia Day of Surgery ---
Anesthesia Day of Surgery - Day of Surgery Patient Examined: Yes Patient H&P Reviewed: Yes Patient is NPO: Yes
--- NOTE | 2021-05-31 07:45 | Anesthesia Consultation ---
Anesthesia Consult and Med Hx Date of service: 05/31/21 - Airway Anesthetic Teeth Evaluation: Poor ROM Head & Neck: Adequate Mental/Hyoid Distance: Adequate Mallampati Class: Class II Intubation Access Assessment: Probably Good - Pre-Operative Health Status ASA Pre-Surgery Classification: ASA3 Proposed Anesthetic Plan: MAC - Cardiovascular System Hx Hypertension: Yes Hx Cardia Arrhythmia: Yes (a-fibrtillation with RVR, on Amiodarone) - Gastrointestinal Hx Ulcer: Yes (GI bleeding, melena) - Endocrine Hx Renal Disease: Yes (Dialysis t, th, sat) Hx End Stage Renal Disease: Yes - Hematic Hx Anemia: Yes
--- NOTE | 2021-05-31 08:08 | Post Operative Note ---
Pre-op diagnosis: GI BLeed Post-op diagnosis: other (DU) Findings: 1. 1cm Duodenal bulb ulcer (clipped x 2) - Cold bx antrum for H pylori 2. Normal stomach 3. Normal esophagus Procedure: EGD with endoscopic clipping for bleeding control Anesthesia: MAC Surgeon: STEPHY GUTIÉRREZ Estimated blood loss: minimal Pathology: list (1. Gastric antrum, rule out H pylori) Specimen disposition: to lab Condition: stable Disposition: floor (Recs: 1. OK to have full liquid diet. 2. If rebleeds, recommend IR embolization of duodenal ulcer. 3. Avoid NSAIDs, but DVT PPY with heparin or lovenox is OK.)
--- NOTE | 2021-05-31 08:41 | Operative Report ---
DATE OF SURGERY: 05/31/2021 PROCEDURE PERFORMED: Esophagogastroduodenoscopy with endoscopic clipping for bleeding control. PREOPERATIVE DIAGNOSIS: Gastrointestinal bleed. POSTOPERATIVE DIAGNOSIS: Duodenal ulcer. ENDOSCOPIST: Jordan Duncan M.D. INSTRUMENT: The Olympus video endoscope. MEDICATIONS: MAC anesthesia by anesthesia services. COMPLICATIONS: No apparent complications. ESTIMATED BLOOD LOSS: Minimal. SPECIMENS: Gastric antrum, rule out H. pylori. IMPLANTS: Endoscopic clip, 17 mm, MR conditional, applied in the duodenal bulb; only one clip adhered to the ulcer. ASSISTANTS: None. CONDITION AT COMPLETION: Stable. DESCRIPTION OF PROCEDURE: The patient was informed of the risks and benefits of the procedure. She signed the informed consent to proceed. She was placed in the left lateral decubitus position. The above sedative medications were given. Her vital signs remained stable throughout the procedure. The instrument was advanced from the mouth to the second portion of the duodenum under direct visualization. At that point, the bowel was insufflated and the endoscope was slowly withdrawn. FINDINGS: 1. A 1 cm cratered ulcer in the duodenal bulb with a visible vessel at the base. A. An endoscopic clip x 2 was applied to close the mucosal defect. The endoscopic clips were 2.8 mm, MR conditional. B. Only one clip adhered and the other clip did not adhere to the mucosa. 2. Normal stomach, status post cold biopsy of the antrum to rule out H. pylori. 3. Normal esophagus. RECOMMENDATIONS: 1. Full liquid diet. 2. Avoid all NSAIDs including daily aspirin, but the patient may have heparin or Lovenox for DVT prophylaxis. 3. Continue to transfuse as needed and serial hematocrits. 4. If the ulcer rebleeds, the patient will need embolization by Interventional Radiology. TID: [id number] RECEIPT: [id number] RENETTA/RAMONE
--- NOTE | 2021-05-31 09:18 | Post Anesthesia Evaluation ---
- Post Anesthesia Evaluation Patient Participated: Yes Airway Patent: Yes Stable Respiratory Function: Yes Nausea/Vomiting: No Temp > 96.8F: Yes Pain Manageable: Yes Adequeate Hydration: Yes Anesthesia Complications: No Block Receding Appropriately: Not Applicable Patient on Ventilator: No
[2021-05-31] MEDS ORDERED: SODIUM CHLORIDE 0.9% 250ML 250 ML IV SCH (09:30)
--- NOTE | 2021-05-31 09:52 | Progress Note ---
Assessment and Plan Assessment * End stage renal disease (Outpatient HD at [facility]) * Symptomatic anemia of ABL * GI bleed * Atrial fibrillation with RVR * Azotemia - multifactorial, 2/2 GI bleed vs ESRD * Hypertension * Secondary hyperparathyroidism Plan: * Patient is s/p HD yesterday * Continue MWF schedule -UF a tolerated * Transfuse pRBC per primary team - * GI recommendations noted - note EGD finding * Epogen prn * Diet per GI - resume renal diet once advanced * AM labs * Dose medications for renal function Subjective Date of service: 05/31/21 Principal diagnosis: ABLA Interval history: Patient requesting food. She complains of leg pain. She denies abdominal pain. Objective - Vital Signs Vital signs: Vital Signs - 12hr 05/30/21 05/30/21 05/30/21 22:00 22:01 22:15 Temperature Pulse Rate 104 H 105 H 117 H Respiratory 14 Rate Blood Pressure 105/32 95/40 105/66 O2 Sat by Pulse 100 Oximetry O2 Sat by Pulse Oximetry [ Bilateral] 05/30/21 05/30/21 05/30/21 22:30 22:31 22:38 Temperature 98.9 F Pulse Rate 101 H 114 H 108 H Respiratory 20 20 Rate Blood Pressure 100/51 105/66 118/32 O2 Sat by Pulse 100 Oximetry O2 Sat by Pulse 99 Oximetry [ Bilateral] 05/30/21 05/30/21 05/30/21 22:45 23:00 23:01 Temperature Pulse Rate 97 H 125 H 133 H Respiratory 18 Rate Blood Pressure 119/53 128/63 128/63 O2 Sat by Pulse 100 Oximetry O2 Sat by Pulse Oximetry [ Bilateral] 05/30/21 05/30/21 05/30/21 23:15 23:30 23:31 Temperature Pulse Rate 128 H 103 H 123 H Respiratory 22 Rate Blood Pressure 133/55 156/71 133/55 O2 Sat by Pulse 100 Oximetry O2 Sat by Pulse Oximetry [ Bilateral] 05/30/21 05/30/21 05/31/21 23:47 23:51 00:00 Temperature 98.2 F 98.4 F Pulse Rate 120 H 135 H Respiratory 14 17 18 Rate Blood Pressure 145/67 145/67 O2 Sat by Pulse 100 100 Oximetry O2 Sat by Pulse 99 Oximetry [ Bilateral] 05/31/21 05/31/21 05/31/21 00:01 01:00 01:40 Temperature Pulse Rate 117 H 127 H 115 H Respiratory 19 25 H 26 H Rate Blood Pressure 144/62 113/69 108/74 O2 Sat by Pulse 100 100 100 Oximetry O2 Sat by Pulse Oximetry [ Bilateral] 05/31/21 05/31/21 05/31/21 01:50 02:00 02:10 Temperature Pulse Rate 118 H 123 H 111 H Respiratory 19 29 H 27 H Rate Blood Pressure 120/91 104/71 104/71 O2 Sat by Pulse 100 100 100 Oximetry O2 Sat by Pulse Oximetry [ Bilateral] 05/31/21 05/31/21 05/31/21 02:20 02:30 02:40 Temperature Pulse Rate 105 H 117 H 123 H Respiratory 29 H 24 Rate Blood Pressure 119/36 119/36 115/63 O2 Sat by Pulse 100 100 100 Oximetry O2 Sat by Pulse Oximetry [ Bilateral] 05/31/21 05/31/21 05/31/21 02:50 03:00 03:10 Temperature Pulse Rate 130 H 127 H Respiratory 20 12 Rate Blood Pressure 148/61 140/66 140/66 O2 Sat by Pulse 99 100 100 Oximetry O2 Sat by Pulse Oximetry [ Bilateral] 05/31/21 05/31/21 05/31/21 03:14 03:20 03:30 Temperature 98.1 F Pulse Rate 98 H 108 H Respiratory 19 13 Rate Blood Pressure 143/60 113/40 O2 Sat by Pulse 99 100 Oximetry O2 Sat by Pulse Oximetry [ Bilateral] 05/31/21 05/31/21 05/31/21 03:40 03:50 04:00 Temperature Pulse Rate 105 H 96 H 93 H Respiratory 22 17 23 Rate Blood Pressure 113/40 120/54 126/35 O2 Sat by Pulse 100 100 100 Oximetry O2 Sat by Pulse Oximetry [ Bilateral] 05/31/21 05/31/21 05/31/21 04:10 04:20 04:30 Temperature Pulse Rate 88 96 H 100 H Respiratory 15 23 20 Rate Blood Pressure 126/35 135/39 111/79 O2 Sat by Pulse 100 100 100 Oximetry O2 Sat by Pulse Oximetry [ Bilateral] 05/31/21 05/31/21 05/31/21 04:40 04:50 05:00 Temperature Pulse Rate 119 H 68 54 L Respiratory 13 14 14 Rate Blood Pressure 111/79 107/35 107/35 O2 Sat by Pulse 100 100 100 Oximetry O2 Sat by Pulse Oximetry [ Bilateral] 05/31/21 05/31/21 05/31/21 05:10 05:20 05:30 Temperature Pulse Rate 54 L 53 L 77 Respiratory 14 14 15 Rate Blood Pressure 93/19 93/21 117/44 O2 Sat by Pulse 100 100 100 Oximetry O2 Sat by Pulse Oximetry [ Bilateral] 05/31/21 05/31/21 05/31/21 05:40 05:50 06:00 Temperature Pulse Rate 53 L 59 L 54 L Respiratory 15 14 15 Rate Blood Pressure 117/44 91/21 103/28 O2 Sat by Pulse 100 100 100 Oximetry O2 Sat by Pulse Oximetry [ Bilateral] 05/31/21 05/31/21 05/31/21 06:10 06:20 06:30 Temperature Pulse Rate 69 57 L 70 Respiratory 10 L 17 18 Rate Blood Pressure 103/28 148/36 148/36 O2 Sat by Pulse 100 100 100 Oximetry O2 Sat by Pulse Oximetry [ Bilateral] 05/31/21 05/31/21 05/31/21 06:40 06:50 07:00 Temperature Pulse Rate 57 L 61 61 Respiratory 15 17 20 Rate Blood Pressure 122/33 126/33 112/46 O2 Sat by Pulse 100 100 100 Oximetry O2 Sat by Pulse Oximetry [ Bilateral] 05/31/21 05/31/21 05/31/21 07:10 07:20 07:30 Temperature Pulse Rate 64 56 L 62 Respiratory 18 14 19 Rate Blood Pressure 112/46 132/38 126/44 O2 Sat by Pulse 100 100 100 Oximetry O2 Sat by Pulse Oximetry [ Bilateral] 05/31/21 05/31/21 05/31/21 07:40 07:45 07:50 Temperature 97.3 F L Pulse Rate 66 63 53 L Respiratory 14 18 16 Rate Blood Pressure 138/43 128/37 156/59 O2 Sat by Pulse 100 100 100 Oximetry O2 Sat by Pulse Oximetry [ Bilateral] 05/31/21 05/31/21 05/31/21 08:00 08:10 08:11 Temperature Pulse Rate 58 L 53 L Respiratory 17 22 Rate Blood Pressure 91/25 81/27 O2 Sat by Pulse 100 100 100 Oximetry O2 Sat by Pulse Oximetry [ Bilateral] 05/31/21 05/31/21 08:20 08:28 Temperature Pulse Rate 58 L 60 Respiratory 18 15 Rate Blood Pressure 87/21 104/23 O2 Sat by Pulse 100 97 Oximetry O2 Sat by Pulse Oximetry [ Bilateral] - General Appearance General appearance: well-developed, well-nourished EENT: ATNC Respiratory: Present: Clear to Ascultation Cardiology: regular, S1S2 Gastrointestinal: normal, no tenderness, no distended Integumentary: no rash, warm and dry Neurologic: alert and oriented x3 Psychiatric: cooperative - Lab 06/01/21 04:42 06/01/21 04:42 Most recent lab results Calcium 7.6 mg/dL (8.4-10.2) L 05/31/21 04:15 Medications & Allergies - Medications Allergies/Adverse Reactions: Allergies celecoxib [From Celebrex] Allergy (Verified 05/30/21 12:42) FACE SWELLING sulfamethoxazole [From Bactrim] Allergy (Verified 05/30/21 12:42) Swelling trimethoprim [From Bactrim] Allergy (Verified 05/30/21 12:42) Swelling Active Medications: Generic Name Dose Route Start Last Admin Trade Name Freq PRN Reason Stop Dose Admin Acetaminophen 650 mg 05/29/21 05:28 05/31/21 01:00 Acetaminophen 325 Mg Tab PO 650 mg Q4H PRN Administration Pain MILD(1-3)/Fever >100.5/LOVE Albumin Human 25 gm 05/29/21 16:05 Albumin Human 25% (25 Gm/100 Ml) Inj IV ASHLEY PRN Hypotension Digoxin 0.25 mg 05/30/21 16:00 Digoxin 0.5 Mg/2 Ml Inj IV 05/30/21 18:01 Q6HR [facility] Digoxin 0.125 mg 05/31/21 17:00 Digoxin 0.125 Mg Tab PO DAILY@1700 ELAINE Epoetin Salas-epbx 20,000 unit 05/29/21 16:05 05/30/21 22:38 Epoetin Salas-Epbx 20,000 Unit/1 Ml Vial IV 20,000 unit ASHLEY PRN Administration hemodialysis Hydrocortisone Acetate 1 applic 05/30/21 14:00 Hydrocortisone 1% Cream 28.4gm TP Q8H PRN Skin Irritation Sodium Chloride 100 mls @ 999 mls/hr 05/29/21 16:05 Nacl 0.9% IV ASHLEY PRN Hypotension Amiodarone HCl 900 mg/ 500 mls @ 33.333 mls/hr 05/30/21 11:00 05/31/21 08:10 Dextrose IV 0 mg/min DIRECT ELAINE 0 mls/hr Titration Protocol 1 MG/MIN Sodium Chloride 250 mls @ 999 mls/hr 05/31/21 09:30 Nacl 0.9% 250ml IV 05/31/21 12:30 ONCE@0930 ELAINE Metoprolol Tartrate 2.5 mg 05/30/21 16:00 Metoprolol Tartrate 5 Mg/5 Ml Inj IV Q6HR PRN HR >120 Midodrine 10 mg 05/31/21 12:00 Midodrine 10 Mg Tab PO TID@0800,1200,1600 ELAINE Morphine Sulfate 2 mg 05/29/21 05:28 05/31/21 03:48 Morphine 2 Mg/1 Ml Inj IV 2 mg Q4H PRN Administration Pain, Moderate (4-6) Ondansetron HCl 4 mg 05/29/21 05:28 Ondansetron 4 Mg/2 Ml Inj IV Q8H PRN Nausea And Vomiting Pantoprazole Sodium 40 mg 05/29/21 22:00 05/30/21 22:15 Pantoprazole 40 Mg Inj IV 40 mg BID ELAINE Administration Sodium Chloride 10 ml 05/29/21 10:00 05/30/21 22:18 Sodium Chloride 0.9% 10 Ml Flush Syringe IV 10 ml BID ELAINE Administration Sodium Chloride 10 ml 05/29/21 05:28 Sodium Chloride 0.9% 10 Ml Flush Syringe IV PRN PRN LINE FLUSH
[2021-05-31] MEDS: MIDODRINE 10 MG TAB PO SCH ×2 (11:50→18:50)
[2021-05-31] MEDS: PANTOPRAZOLE 40 MG INJ IV SCH ×2 (11:50→22:15)
--- NOTE | 2021-05-31 13:13 | Progress Note ---
<MIRA HAMMOND - Last Filed: 05/31/21 19:13> Assessment and Plan Assessment and plan: This is a 80-year-old female with known past medical history of HTN, ESRD on HD initially admitted to floor for severe anemia 2/2 of possible GIB. Patient was transferred in the ICU on 05/30 due to new onset atrial fibrillation, HR sust aining in the 140s. Hospital Course to Date: 05/30/2021- patient went into A. fib with rapid ventricular rate, cardiology consulted. Started amiodarone drip, transfer to ICU for close observation . Unable to start anticoagulation due to severe anemia and GI bleeding.. Endoscopy rescheduled for tomorrow Continue to monitor in ICU 05/31: S/p EGD this am, duodenal bulb ulcer noted which was clipped and bx, otherwise unremarkable EGD per GI. Patient is hypotensive this am post procedure, probably related to sedation vs hypovolemia. S/p 250mg of NS bolus with some improvement, and PO midodrine added. Amiodorone gtt is on hold this am due to bradycardia and hypotension. SR with a HR in the low 50s noted on the monitor, 12lead EKg ordered to confirm conversion. Patient's H&H is stable this am, GI recommendations noted. Patient is tolerating clear liquid diet, continue PPI, and trend H&H Q8hr, transfuse if hgb is less than 7. Assessment and Plan #Atrial Fibrillation with Rapid Ventricular Rate - Went into Afib with RVR on the floor, HR as high as 140s - Unclear if patient has a history, most likely new onset - Cardiology on consult, appreciated recommendations - s/p Amiodorone gtt - Amio gtt held this am due to hypotension and bradycardia - HR in the low 50s this am, SB on the monitor - 12 Lead EKG pending - Continue PRN IV metoprolol for HR greater than 120 - Patient not a candidate for Anticoagulation at this time due to severe anemia and possible GIB - [facility] is also consulted, appreciate recommendations #Hypotension #H/o Hypertension - probably 2/2 hypovolemia vs sedation post EGD procedure - HD overnight 1L removed, report of large bloody BM this am - and patient received IV propofol this am prior to EGD procedure - S/p 250ml of NS bolus with some improvement, pressors not required at this time - Midodrine also added - H&H stable this am - Continue to trend H&H, transfuse if hbg less than 7 - Continue blood pressure monitor per protocol - Maintain MAP above 65 #Severe Anemia #Thrombocytopenia #Melena #Possible Upper GI Bleeding - Presented with Hgb of 5.3 and Hct of 15.9 - Stool guaiac is positive in the ED - s/p 2units of PRBCs - X1 episode of large bloody stool this am - GI consulted, appreciate recommendations - 05/31 s/p EGD with endoscopic clipping which revealed 1cm Duodenal bulb ulcer (clipped x 2), Cold bx antrum for H pylori. Normal stomach and esophagus - Continue PPI- IV protonix BID - Clear liquid diet for now - Will continue to trend CBC - Transfuse if Hgb is less than 7 #ESRD on HD- MWF - Patient is anuric - Nephrology on consult, appreciated recommendation - Continue HD per Nephro - Strict intake and output - Avoid nephrotoxic medications; Renally dose medications - Monitor and replace electrolytes as needed #GI/DVT Prophylaxis - PPI- IV protonix - SCD for DVT prophylaxis. The high probability of a clinically significant, sudden or life threatening deterioration of the [multiple] system(s) required my full and direct attention, intervention and personal management. The aggregate critical care time was [60] minutes. This time is in addition to time spent performing reported procedures but includes the following: [x] Data Review and interpretation [x] Patient assessment and monitoring of vital signs [x] Documentation [x] Medication orders and management Disposition Plan: ICU Total Time Spent with Patient (Minutes): 60 History Interval history: Patient seen and examined at the bedside. S/p EGD procedure this am. Patient is drowsy but full AAO, on RA. Hypotensive post procedure this am, 250cc of IV bolus given. Bradycardia also noted on the monitor, HR in the low 50s, amio gtt on hold. Per RN patient also had a large bloody BM this am. HD overnight, 1L removed Hospitalist Physical - Constitutional Vitals: Temp Pulse Resp BP Pulse Ox 97.3 F L 60 15 104/23 97 05/31/21 07:45 05/31/21 08:28 05/31/21 08:28 05/31/21 08:28 05/31/21 08:28 General appearance: Present: no acute distress - EENT Eyes: Present: PERRL, EOM intact ENT: hearing intact, clear oral mucosa - Neck Neck: Present: normal ROM - Respiratory Respiratory effort: normal Respiratory: bilateral: diminished - Cardiovascular Rhythm: regular Heart Sounds: Present: S1 & S2 - Extremities Extremities: no ischemia, pulses intact, pulses symmetrical Extremity abnormal: edema - Peripheral Assessment Generalized Edema Type: Non-pitting Edema Degree: 2+ Capillary Refill: < 3 seconds Skin Temperature: Warm Peripheral Pulses: within normal limits - Abdominal General gastrointestinal: soft, non-distended, normal bowel sounds - Integumentary Integumentary: Present: warm, dry - Psychiatric Psychiatric: appropriate mood/affect, cooperative - Neurologic Neurologic: CNII-XII intact, moves all extremities - Allied Health Allied health notes reviewed: nursing Results - Labs CBC & Chem 7: 05/31/21 14:19 05/31/21 04:15 Labs: Laboratory Last Values WBC 13.0 K/mm3 (4.5-11.0) H 05/31/21 04:15 RBC 3.42 M/mm3 (3.65-5.03) L 05/31/21 04:15 Hgb 9.3 gm/dl (10.1-14.3) L D 05/31/21 04:15 Hct 28.2 % (30.3-42.9) L D 05/31/21 04:15 MCV 83 fl (79-97) 05/31/21 04:15 MCH 27 pg (28-32) L 05/31/21 04:15 MCHC 33 % (30-34) 05/31/21 04:15 RDW 20.2 % (13.2-15.2) H 05/31/21 04:15 Plt Count 101 K/mm3 (140-440) L 05/31/21 04:15 Lymph % (Auto) 7.3 % (13.4-35.0) L 05/31/21 04:15 [place] % (Auto) 9.8 % (0.0-7.3) H 05/31/21 04:15 Eos % (Auto) 0.7 % (0.0-4.3) 05/31/21 04:15 Baso % (Auto) 0.2 % (0.0-1.8) 05/31/21 04:15 Lymph # (Auto) 1.0 K/mm3 (1.2-5.4) L 05/31/21 04:15 [place] # (Auto) 1.3 K/mm3 (0.0-0.8) H 05/31/21 04:15 Eos # (Auto) 0.1 K/mm3 (0.0-0.4) 05/31/21 04:15 Baso # (Auto) 0.0 K/mm3 (0.0-0.1) 05/31/21 04:15 Seg Neutrophils % 82.0 % (40.0-70.0) H 05/31/21 04:15 Seg Neutrophils # 10.7 K/mm3 (1.8-7.7) H 05/31/21 04:15 PT 18.1 Sec. (12.2-14.9) H 05/29/21 03:57 INR 1.33 (0.87-1.13) H 05/29/21 03:57 APTT 32.3 Sec. (24.2-36.6) 05/29/21 03:57 Sodium 137 mmol/L (137-145) 05/31/21 04:15 Potassium 3.8 mmol/L (3.6-5.0) D 05/31/21 04:15 Chloride 101.2 mmol/L (98-107) 05/31/21 04:15 Carbon Dioxide 25 mmol/L (22-30) D 05/31/21 04:15 Anion Gap 15 mmol/L 05/31/21 04:15 BUN 46 mg/dL (7-17) H 05/31/21 04:15 Creatinine 2.6 mg/dL (0.6-1.2) H 05/31/21 04:15 Estimated GFR 18 ml/min 05/31/21 04:15 BUN/Creatinine Ratio 18 % 05/31/21 04:15 Glucose 135 mg/dL (65-100) H 05/31/21 04:15 POC Glucose 99 mg/dL (70-105) 05/31/21 11:55 Lactic Acid 1.70 mmol/L (0.7-2.0) 05/31/21 04:15 Calcium 7.6 mg/dL (8.4-10.2) L 05/31/21 04:15 Total Bilirubin 0.20 mg/dL (0.1-1.2) 05/29/21 01:16 AST 15 units/L (5-40) 05/29/21 01:16 ALT 15 units/L (7-56) 05/29/21 01:16 Alkaline Phosphatase 35 units/L (35-129) 05/29/21 01:16 Total Protein 4.8 g/dL (6.3-8.2) L 05/29/21 01:16 Albumin 3.0 g/dL (3.9-5) L 05/29/21 01:16 Albumin/Globulin Ratio 1.7 % 05/29/21 01:16 Lipase 73 units/L (13-60) H 05/29/21 01:52 Urine Color Straw (Yellow) 05/29/21 06:35 Urine Turbidity Clear (Clear) 05/29/21 06:35 Urine pH 7.0 (5.0-7.0) 05/29/21 06:35 Ur Specific [place] 1.011 (1.003-1.030) 05/29/21 06:35 Urine Protein <15 mg/dl mg/dL (Negative) 05/29/21 06:35 Urine Glucose (UA) Neg mg/dL (Negative) 05/29/21 06:35 Urine Ketones Neg mg/dL (Negative) 05/29/21 06:35 Urine Blood Sm (Negative) 05/29/21 06:35 Urine Nitrite Neg (Negative) 05/29/21 06:35 Urine Bilirubin Neg (Negative) 05/29/21 06:35 Urine Urobilinogen < 2.0 mg/dL (<2.0) 05/29/21 06:35 Ur Leukocyte Esterase Sm (Negative) 05/29/21 06:35 Urine WBC (Auto) 10.0 /HPF (0.0-6.0) H 05/29/21 06:35 Urine RBC (Auto) 1.0 /HPF (0.0-6.0) 05/29/21 06:35 U Epithel Cells (Auto) < 1.0 /HPF (0-13.0) 05/29/21 06:35 Urine Mucus Few /HPF 05/29/21 06:35 Urine Yeast (Budding) Few /HPF 05/29/21 06:35 Hep Bs Antigen Non-reactive (Negative) 05/30/21 03:03 Hep B Core IgM Ab Non-reactive (NonReactive) 05/30/21 03:03 Hepatitis C Antibody Non-reactive (NonReactive) 05/30/21 03:03 Blood Type A POSITIVE 05/29/21 03:57 Antibody Screen Negative 05/29/21 03:57 Crossmatch See Detail 05/29/21 03:57 Microbiology: Microbiology 05/29/21 06:35 Urine,Clean Catch Urine Culture - Preliminary Benjamin/IV: Voiding Method Diaper Active Medications - Current Medications Current Medications: Generic Name Dose Route Start Last Admin Trade Name Freq PRN Reason Stop Dose Admin Acetaminophen 650 mg 05/29/21 05:28 05/31/21 01:00 Acetaminophen 325 Mg Tab PO 650 mg Q4H PRN Administration Pain MILD(1-3)/Fever >100.5/LOVE Albumin Human 25 gm 05/29/21 16:05 Albumin Human 25% (25 Gm/100 Ml) Inj IV ASHLEY PRN Hypotension Digoxin 0.25 mg 05/30/21 16:00 Digoxin 0.5 Mg/2 Ml Inj IV 05/30/21 18:01 Q6HR ELAINE Digoxin 0.125 mg 05/31/21 17:00 Digoxin 0.125 Mg Tab PO DAILY@1700 ELAINE Epoetin Salas-epbx 20,000 unit 05/29/21 16:05 05/30/21 22:38 Epoetin Salas-Epbx 20,000 Unit/1 Ml Vial IV 20,000 unit ASHLEY PRN Administration hemodialysis Hydrocortisone Acetate 1 applic 05/30/21 14:00 Hydrocortisone 1% Cream 28.4gm TP Q8H PRN Skin Irritation Sodium Chloride 100 mls @ 999 mls/hr 05/29/21 16:05 Nacl 0.9% IV ASHLEY PRN Hypotension Amiodarone HCl 900 mg/ 500 mls @ 33.333 mls/hr 05/30/21 11:00 05/31/21 08:10 Dextrose IV 0 mg/min DIRECT ELAINE 0 mls/hr Titration Protocol 1 MG/MIN Metoprolol Tartrate 2.5 mg 05/30/21 16:00 Metoprolol Tartrate 5 Mg/5 Ml Inj IV Q6HR PRN HR >120 Midodrine 10 mg 05/31/21 12:00 05/31/21 11:50 Midodrine 10 Mg Tab PO 10 mg TID@0800,1200,1600 ELAINE Administration Morphine Sulfate 2 mg 05/29/21 05:28 05/31/21 03:48 Morphine 2 Mg/1 Ml Inj IV 2 mg Q4H PRN Administration Pain, Moderate (4-6) Ondansetron HCl 4 mg 05/29/21 05:28 Ondansetron 4 Mg/2 Ml Inj IV Q8H PRN Nausea And Vomiting Pantoprazole Sodium 40 mg 05/29/21 22:00 05/31/21 11:50 Pantoprazole 40 Mg Inj IV 40 mg BID ELAINE Administration Sodium Chloride 10 ml 05/29/21 10:00 05/31/21 11:51 Sodium Chloride 0.9% 10 Ml Flush Syringe IV 10 ml BID ELAINE Administration Sodium Chloride 10 ml 05/29/21 05:28 Sodium Chloride 0.9% 10 Ml Flush Syringe IV PRN PRN LINE FLUSH <SHANNAN MARROQUIN - Last Filed: 06/01/21 07:13> Assessment and Plan Assessment and plan: I saw and evaluated the patient. I agree with the findings and the plan of care as documented in the Nurse Practitioner's~note, with the following corrections and additions. Hospitalist Physical - Constitutional Vitals: Temp Pulse Resp BP Pulse Ox 98.3 F 61 13 139/30 96 06/01/21 04:00 06/01/21 06:01 06/01/21 06:20 06/01/21 06:01 06/01/21 06:01 Results - Labs CBC & Chem 7: 06/01/21 04:42 06/01/21 04:42 Labs: Laboratory Last Values WBC 8.7 K/mm3 (4.5-11.0) 06/01/21 04:42 RBC 3.03 M/mm3 (3.65-5.03) L 06/01/21 04:42 Hgb 8.5 gm/dl (10.1-14.3) L 06/01/21 04:42 Hct 26.0 % (30.3-42.9) L 06/01/21 04:42 MCV 86 fl (79-97) 06/01/21 04:42 MCH 28 pg (28-32) 06/01/21 04:42 MCHC 33 % (30-34) 06/01/21 04:42 RDW 20.7 % (13.2-15.2) H 06/01/21 04:42 Plt Count 122 K/mm3 (140-440) L 06/01/21 04:42 Lymph % (Auto) 16.3 % (13.4-35.0) 06/01/21 04:42 [place] % (Auto) 12.6 % (0.0-7.3) H 06/01/21 04:42 Eos % (Auto) 4.5 % (0.0-4.3) H 06/01/21 04:42 Baso % (Auto) 0.3 % (0.0-1.8) 06/01/21 04:42 Lymph # (Auto) 1.4 K/mm3 (1.2-5.4) 06/01/21 04:42 [place] # (Auto) 1.1 K/mm3 (0.0-0.8) H 06/01/21 04:42 Eos # (Auto) 0.4 K/mm3 (0.0-0.4) 06/01/21 04:42 Baso # (Auto) 0.0 K/mm3 (0.0-0.1) 06/01/21 04:42 Seg Neutrophils % 66.3 % (40.0-70.0) 06/01/21 04:42 Seg Neutrophils # 5.8 K/mm3 (1.8-7.7) 06/01/21 04:42 PT 18.1 Sec. (12.2-14.9) H 05/29/21 03:57 INR 1.33 (0.87-1.13) H 05/29/21 03:57 APTT 32.3 Sec. (24.2-36.6) 05/29/21 03:57 Sodium 140 mmol/L (137-145) 06/01/21 04:42 Potassium 4.2 mmol/L (3.6-5.0) 06/01/21 04:42 Chloride 104.4 mmol/L (98-107) 06/01/21 04:42 Carbon Dioxide 24 mmol/L (22-30) 06/01/21 04:42 Anion Gap 16 mmol/L 06/01/21 04:42 BUN 56 mg/dL (7-17) H 06/01/21 04:42 Creatinine 3.9 mg/dL (0.6-1.2) H 06/01/21 04:42 Estimated GFR 11 ml/min 06/01/21 04:42 BUN/Creatinine Ratio 14 % 06/01/21 04:42 Glucose 100 mg/dL (65-100) 06/01/21 04:42 POC Glucose 99 mg/dL (70-105) 05/31/21 11:55 Lactic Acid 1.70 mmol/L (0.7-2.0) 05/31/21 04:15 Calcium 7.3 mg/dL (8.4-10.2) L 06/01/21 04:42 Phosphorus 4.80 mg/dL (2.5-4.5) H 06/01/21 04:42 Magnesium 1.70 mg/dL (1.7-2.3) 06/01/21 04:42 Total Bilirubin 0.20 mg/dL (0.1-1.2) 05/29/21 01:16 AST 15 units/L (5-40) 05/29/21 01:16 ALT 15 units/L (7-56) 05/29/21 01:16 Alkaline Phosphatase 35 units/L (35-129) 05/29/21 01:16 Total Protein 4.8 g/dL (6.3-8.2) L 05/29/21 01:16 Albumin 3.0 g/dL (3.9-5) L 05/29/21 01:16 Albumin/Globulin Ratio 1.7 % 05/29/21 01:16 Lipase 73 units/L (13-60) H 05/29/21 01:52 Urine Color Straw (Yellow) 05/29/21 06:35 Urine Turbidity Clear (Clear) 05/29/21 06:35 Urine pH 7.0 (5.0-7.0) 05/29/21 06:35 Ur Specific [place] 1.011 (1.003-1.030) 05/29/21 06:35 Urine Protein <15 mg/dl mg/dL (Negative) 05/29/21 06:35 Urine Glucose (UA) Neg mg/dL (Negative) 05/29/21 06:35 Urine Ketones Neg mg/dL (Negative) 05/29/21 06:35 Urine Blood Sm (Negative) 05/29/21 06:35 Urine Nitrite Neg (Negative) 05/29/21 06:35 Urine Bilirubin Neg (Negative) 05/29/21 06:35 Urine Urobilinogen < 2.0 mg/dL (<2.0) 05/29/21 06:35 Ur Leukocyte Esterase Sm (Negative) 05/29/21 06:35 Urine WBC (Auto) 10.0 /HPF (0.0-6.0) H 05/29/21 06:35 Urine RBC (Auto) 1.0 /HPF (0.0-6.0) 05/29/21 06:35 U Epithel Cells (Auto) < 1.0 /HPF (0-13.0) 05/29/21 06:35 Urine Mucus Few /HPF 05/29/21 06:35 Urine Yeast (Budding) Few /HPF 05/29/21 06:35 Hep Bs Antigen Non-reactive (Negative) 05/30/21 03:03 Hep B Core IgM Ab Non-reactive (NonReactive) 05/30/21 03:03 Hepatitis C Antibody Non-reactive (NonReactive) 05/30/21 03:03 Blood Type A POSITIVE 05/29/21 03:57 Antibody Screen Negative 05/29/21 03:57 Crossmatch See Detail 05/29/21 03:57 Microbiology: Microbiology 05/29/21 06:35 Urine,Clean Catch Urine Culture - Final Benjamin/IV: Voiding Method External Female Catheter Active Medications - Current Medications Current Medications: Generic Name Dose Route Start Last Admin Trade Name Freq PRN Reason Stop Dose Admin Acetaminophen 650 mg 05/29/21 05:28 05/31/21 01:00 Acetaminophen 325 Mg Tab PO 650 mg Q4H PRN Administration Pain MILD(1-3)/Fever >100.5/LOVE Albumin Human 25 gm 05/29/21 16:05 Albumin Human 25% (25 Gm/100 Ml) Inj IV ASHLEY PRN Hypotension Epoetin Salas-epbx 20,000 unit 05/29/21 16:05 05/30/21 22:38 Epoetin Salas-Epbx 20,000 Unit/1 Ml Vial IV 20,000 unit ASHLEY PRN Administration hemodialysis Hydrocortisone Acetate 1 applic 05/30/21 14:00 Hydrocortisone 1% Cream 28.4gm TP Q8H PRN Skin Irritation Sodium Chloride 100 mls @ 999 mls/hr 05/29/21 16:05 Nacl 0.9% IV ASHLEY PRN Hypotension Metoprolol Tartrate 2.5 mg 05/30/21 16:00 Metoprolol Tartrate 5 Mg/5 Ml Inj IV Q6HR PRN HR >120 Midodrine 10 mg 05/31/21 12:00 05/31/21 18:50 Midodrine 10 Mg Tab PO Not Given TID@0800,1200,1600 ELAINE Morphine Sulfate 2 mg 05/29/21 05:28 06/01/21 06:20 Morphine 2 Mg/1 Ml Inj IV 2 mg Q4H PRN Administration Pain, Moderate (4-6) Ondansetron HCl 4 mg 05/29/21 05:28 Ondansetron 4 Mg/2 Ml Inj IV Q8H PRN Nausea And Vomiting Pantoprazole Sodium 40 mg 05/29/21 22:00 05/31/21 22:15 Pantoprazole 40 Mg Inj IV 40 mg BID ELAINE Administration Sodium Chloride 10 ml 05/29/21 10:00 05/31/21 22:15 Sodium Chloride 0.9% 10 Ml Flush Syringe IV 10 ml BID ELAINE Administration Sodium Chloride 10 ml 05/29/21 05:28 Sodium Chloride 0.9% 10 Ml Flush Syringe IV PRN PRN LINE FLUSH
--- NOTE | 2021-05-31 14:12 | Progress Note ---
Assessment and Plan - Patient Problems (1) Atrial fibrillation with rapid ventricular response Current Visit: Yes Status: Acute Plan to address problem: 80-year-old woman admitted with severe anemia, hematocrit of 15, suspected GI bleeding. She has developed paroxysmal rapid atrial fibrillation. We will use AV yasmin blocking agents as indicated for recurrences of atrial fibrillation. Due to the active and ongoing profound anemia, patient is not a candidate for anticoagulation now or in the near term in the outpatient. Subjective Date of service: 05/31/21 Principal diagnosis: GI bleed, anemia Interval history: Patient has reverted to a stable sinus rhythm, with low blood pressures. The amiodarone has been discontinued. Objective Vital Signs Temp Pulse Pulse Resp BP Pulse Ox Pulse Ox 05/31/21 13:30 56 L 16 135/32 98 05/31/21 13:28 55 L 18 136/37 97 05/31/21 13:26 54 L 21 136/37 97 05/31/21 13:24 52 L 17 136/37 97 05/31/21 13:22 56 L 13 136/37 99 05/31/21 13:20 51 L 17 136/37 98 05/31/21 13:18 52 L 16 136/37 97 05/31/21 13:16 54 L 18 136/37 98 05/31/21 13:14 52 L 17 132/32 97 05/31/21 13:12 52 L 19 132/32 97 05/31/21 13:10 49 L 16 132/32 97 05/31/21 13:08 50 L 15 132/32 97 05/31/21 13:06 51 L 16 132/32 98 05/31/21 13:04 53 L 16 132/32 98 05/31/21 13:02 53 L 17 132/32 97 05/31/21 13:00 52 L 17 132/32 98 05/31/21 12:58 53 L 17 109/37 97 05/31/21 12:56 53 L 17 109/37 97 05/31/21 12:54 51 L 16 109/37 98 05/31/21 12:52 53 L 17 109/37 96 05/31/21 12:50 53 L 17 109/37 97 05/31/21 12:48 58 L 17 109/37 97 05/31/21 12:46 59 L 16 109/37 98 05/31/21 12:44 48 L 16 144/40 97 05/31/21 12:42 52 L 16 144/40 97 05/31/21 12:40 59 L 16 144/40 97 05/31/21 12:38 51 L 16 144/40 97 05/31/21 12:36 58 L 17 144/40 98 05/31/21 12:34 60 17 144/40 98 05/31/21 12:32 64 14 144/40 100 05/31/21 12:30 56 L 15 101/29 99 05/31/21 12:28 58 L 15 101/29 98 05/31/21 12:26 57 L 11 L 101/29 99 05/31/21 12:24 54 L 15 101/29 98 05/31/21 12:22 51 L 16 101/29 96 05/31/21 12:20 61 15 101/29 94 05/31/21 12:18 60 18 101/29 99 05/31/21 12:16 63 13 101/29 97 05/31/21 12:14 62 15 104/27 97 05/31/21 12:12 63 11 L 104/27 98 05/31/21 12:10 63 12 104/27 99 05/31/21 12:08 57 L 16 104/27 97 05/31/21 12:06 61 13 104/27 97 05/31/21 12:04 63 20 104/27 92 05/31/21 12:02 61 16 104/27 98 05/31/21 12:00 97.6 F 63 60 13 104/27 96 05/31/21 11:58 64 16 127/37 94 05/31/21 11:56 66 14 127/37 97 05/31/21 11:54 62 12 127/37 98 05/31/21 11:52 63 13 127/37 98 05/31/21 08:28 60 15 104/23 97 05/31/21 08:20 58 L 18 87/21 100 05/31/21 08:11 100 05/31/21 08:10 53 L 22 81/27 100 05/31/21 08:00 58 L 53 L 7 L 91/25 100 05/31/21 07:50 53 L 16 156/59 100 05/31/21 07:45 97.3 F L 63 18 128/37 100 05/31/21 07:40 66 14 138/43 100 05/31/21 07:30 62 19 126/44 100 05/31/21 07:20 56 L 14 132/38 100 05/31/21 07:10 64 18 112/46 100 05/31/21 07:00 61 20 112/46 100 05/31/21 06:50 61 17 126/33 100 05/31/21 06:40 57 L 15 122/33 100 05/31/21 06:30 70 18 148/36 100 05/31/21 06:20 57 L 17 148/36 100 05/31/21 06:10 69 10 L 103/28 100 05/31/21 06:00 54 L 15 103/28 100 05/31/21 05:50 59 L 14 91/21 100 05/31/21 05:40 53 L 15 117/44 100 05/31/21 05:30 77 15 117/44 100 05/31/21 05:20 53 L 14 93/21 100 05/31/21 05:10 54 L 14 93/19 100 05/31/21 05:00 54 L 14 107/35 100 05/31/21 04:50 68 14 107/35 100 05/31/21 04:40 119 H 13 111/79 100 05/31/21 04:30 100 H 20 111/79 100 05/31/21 04:20 96 H 23 135/39 100 05/31/21 04:10 88 15 126/35 100 05/31/21 04:00 93 H 23 126/35 100 05/31/21 03:50 96 H 17 120/54 100 05/31/21 03:40 105 H 22 113/40 100 05/31/21 03:30 108 H 13 113/40 100 05/31/21 03:20 98 H 19 143/60 99 05/31/21 03:14 98.1 F 05/31/21 03:10 127 H 12 140/66 100 05/31/21 03:00 130 H 20 140/66 100 05/31/21 02:50 148/61 99 05/31/21 02:40 123 H 115/63 100 05/31/21 02:30 117 H 24 119/36 100 05/31/21 02:20 105 H 29 H 119/36 100 05/31/21 02:10 111 H 27 H 104/71 100 05/31/21 02:00 123 H 29 H 104/71 100 05/31/21 01:50 118 H 19 120/91 100 05/31/21 01:40 115 H 26 H 108/74 100 05/31/21 01:00 127 H 25 H 113/69 100 05/31/21 00:01 117 H 19 144/62 100 05/31/21 00:00 98.4 F 18 100 05/30/21 23:51 135 H 17 145/67 100 05/30/21 23:47 98.2 F 120 H 14 145/67 99 05/30/21 23:31 123 H 22 133/55 100 05/30/21 23:30 103 H 156/71 05/30/21 23:15 128 H 133/55 05/30/21 23:01 133 H 18 128/63 100 05/30/21 23:00 125 H 128/63 05/30/21 22:45 97 H 119/53 05/30/21 22:38 98.9 F 108 H 20 118/32 99 05/30/21 22:31 114 H 20 105/66 100 05/30/21 22:30 101 H 100/51 05/30/21 22:15 117 H 105/66 05/30/21 22:01 105 H 14 95/40 100 05/30/21 22:00 104 H 105/32 05/30/21 21:45 110 H 95/40 05/30/21 21:30 99 H 17 91/49 100 05/30/21 21:15 96 H 104/48 05/30/21 21:01 100 H 19 104/42 100 05/30/21 21:00 84 112/50 05/30/21 20:45 91 H 104/42 05/30/21 20:31 100 H 17 97/30 100 05/30/21 20:30 85 97/30 05/30/21 20:22 100 05/30/21 20:01 99 H 15 113/41 100 05/30/21 20:00 94 H 18 100 05/30/21 19:35 98.3 F 05/30/21 19:31 84 6 L 122/22 100 05/30/21 19:01 97 H 15 109/32 100 05/30/21 18:31 94 H 15 111/35 100 05/30/21 18:00 126 H 19 126/56 100 05/30/21 17:30 100 H 15 74/44 100 05/30/21 17:01 102 H 11 L 105/53 100 05/30/21 17:00 98.3 F 106 H 16 84/14 100 05/30/21 16:30 98.5 F 89 18 108/52 100 05/30/21 16:01 104 H 17 116/39 100 05/30/21 16:00 98.7 F 95 H 18 116/39 100 05/30/21 15:45 98.5 F 125 H 22 116/67 100 05/30/21 15:41 122 H 10 L 95/75 100 05/30/21 15:31 111 H 23 95/75 100 05/30/21 15:30 98.3 F 111 H 22 95/75 100 05/30/21 15:21 99 H 12 107/40 100 05/30/21 15:15 98.4 F 107 H 12 107/40 100 05/30/21 15:11 111 H 18 110/74 100 05/30/21 15:01 131 H 13 98/51 100 05/30/21 14:51 98 H 18 98/51 100 05/30/21 14:41 133 H 11 L 111/64 100 05/30/21 14:31 120 H 13 111/64 100 05/30/21 14:21 125 H 18 88/50 100 05/30/21 14:15 98.7 F 17 88/50 100 05/30/21 14:11 107 H 13 90/26 100 - Physical Examination General: No Apparent Distress HEENT: Positive: PERRL Neck: Positive: neck supple Cardiac: Positive: Regular Rhythm Lungs: Positive: Decreased Breath Sounds Neuro: Positive: Grossly Intact Abdomen: Positive: Soft Extremities: Absent: edema - Labs and Meds CBC 05/31/21 Range/Units 04:15 WBC 13.0 H (4.5-11.0) K/mm3 RBC 3.42 L (3.65-5.03) M/mm3 Hgb 9.3 L D (10.1-14.3) gm/dl Hct 28.2 L D (30.3-42.9) % Plt Count 101 L (140-440) K/mm3 Lymph # (Auto) 1.0 L (1.2-5.4) K/mm3 Dickinson # (Auto) 1.3 H (0.0-0.8) K/mm3 Eos # (Auto) 0.1 (0.0-0.4) K/mm3 Baso # (Auto) 0.0 (0.0-0.1) K/mm3 Comprehensive Metabolic Panel 05/31/21 Range/Units 04:15 Sodium 137 (137-145) mmol/L Potassium 3.8 D (3.6-5.0) mmol/L Chloride 101.2 (98-107) mmol/L Carbon Dioxide 25 D (22-30) mmol/L BUN 46 H (7-17) mg/dL Creatinine 2.6 H (0.6-1.2) mg/dL Glucose 135 H (65-100) mg/dL Calcium 7.6 L (8.4-10.2) mg/dL
[2021-05-31 14:29] LABS: Hematocrit 26.8 % (30.3-42.9); Hemoglobin 8.9 gm/dl (10.1-14.3)
[2021-05-31] MEDS ORDERED: DIGOXIN 0.125 MG TAB PO SCH (17:00)
--- NOTE | 2021-05-31 17:01 | Progress Note ---
Assessment and Plan Atrial Fibrillation with Rapid Ventricular Rate Hypotension, acute blood loss anemia h/o Hypertension Severe Anemia Thrombocytopenia Melena/ Upper GI Bleeding ESRD on HD- MWF -Continue with therapeutic PPI -Supportive transfusions as clinically indicated, keep HgB >7g/dL -s/p EGD , s/p PRBCs -SCDs for VTE prophylaxis -Vasopressor support as indicated to keep MAP >65, hemorrhagic shock- she is on Midodrine Continue to monitor hemodynamics closely -Clear liquid diet -Maintain sleep-wake cycle, avoid delirium -PT/OT to evaluate and treat in the morning - Patient not a candidate for Anticoagulation at this time due to severe anemia and possible GIB -Avoid nephrotoxins, adjust all medications for GFR -Hold all antihypertensives and home medications for now -Supportive HD per Renal service -Monitor overnight int ICU- in the event there is a re-bleed Subjective Date of service: 05/31/21 Principal diagnosis: GI bleed, anemia Interval history: S/p EGD this am, duodenal bulb ulcer noted which was clipped and bx, otherwise unremarkable EGD per GI. Tolerating a clear liquid diet, awake and alert, asked that I explain her EGD results to her, she also wants to know if she can go home tomorrow Seen and examined. Vitals, labs, medications, chart reviewed. Off amiodarone, wide pulse pressure Objective - Exam Narrative Exam: General appearance: Present: no acute distress, frail - EENT Eyes: Present: PERRL ENT: hearing intact, clear oral mucosa - Neck Neck: Present: supple, normal ROM - Respiratory Respiratory effort: normal Respiratory: bilateral: diminished - Cardiovascular Heart Sounds: Present: S1 & S2. Absent: rub, click, irregular - Extremities Extremities: pulses symmetrical, No edema Peripheral Pulses: within normal limits - Abdominal General gastrointestinal: Present: soft, non-tender, non-distended, normal bowel sounds Female genitourinary: Present: normal - Integumentary Integumentary: Present: clear, warm, dry - Musculoskeletal Musculoskeletal: gait normal, strength equal bilaterally - Psychiatric Psychiatric: appropriate mood/affect, intact judgment & insight - Neurologic Neurologic: CNII-XII intact, moves all extremities Vital Signs - 12hr 05/31/21 05/31/21 05/31/21 05:10 05:20 05:30 Temperature Pulse Rate 54 L 53 L 77 Pulse Rate [ Radial] Respiratory 14 14 15 Rate Blood Pressure 93/19 93/21 117/44 O2 Sat by Pulse 100 100 100 Oximetry 05/31/21 05/31/21 05/31/21 05:40 05:50 06:00 Temperature Pulse Rate 53 L 59 L 54 L Pulse Rate [ Radial] Respiratory 15 14 15 Rate Blood Pressure 117/44 91/21 103/28 O2 Sat by Pulse 100 100 100 Oximetry 05/31/21 05/31/21 05/31/21 06:10 06:20 06:30 Temperature Pulse Rate 69 57 L 70 Pulse Rate [ Radial] Respiratory 10 L 17 18 Rate Blood Pressure 103/28 148/36 148/36 O2 Sat by Pulse 100 100 100 Oximetry 05/31/21 05/31/21 05/31/21 06:40 06:50 07:00 Temperature Pulse Rate 57 L 61 61 Pulse Rate [ Radial] Respiratory 15 17 20 Rate Blood Pressure 122/33 126/33 112/46 O2 Sat by Pulse 100 100 100 Oximetry 05/31/21 05/31/21 05/31/21 07:10 07:20 07:30 Temperature Pulse Rate 64 56 L 62 Pulse Rate [ Radial] Respiratory 18 14 19 Rate Blood Pressure 112/46 132/38 126/44 O2 Sat by Pulse 100 100 100 Oximetry 05/31/21 05/31/21 05/31/21 07:40 07:45 07:50 Temperature 97.3 F L Pulse Rate 66 63 53 L Pulse Rate [ Radial] Respiratory 14 18 16 Rate Blood Pressure 138/43 128/37 156/59 O2 Sat by Pulse 100 100 100 Oximetry 05/31/21 05/31/21 05/31/21 08:00 08:10 08:11 Temperature Pulse Rate 58 L 53 L Pulse Rate [ 53 L Radial] Respiratory 7 L 22 Rate Blood Pressure 91/25 81/27 O2 Sat by Pulse 100 100 100 Oximetry 05/31/21 05/31/21 05/31/21 08:20 08:28 11:52 Temperature Pulse Rate 58 L 60 63 Pulse Rate [ Radial] Respiratory 18 15 13 Rate Blood Pressure 87/21 104/23 127/37 O2 Sat by Pulse 100 97 98 Oximetry 05/31/21 05/31/21 05/31/21 11:54 11:56 11:58 Temperature Pulse Rate 62 66 64 Pulse Rate [ Radial] Respiratory 12 14 16 Rate Blood Pressure 127/37 127/37 127/37 O2 Sat by Pulse 98 97 94 Oximetry 05/31/21 05/31/21 05/31/21 12:00 12:02 12:04 Temperature 97.6 F Pulse Rate 63 61 63 Pulse Rate [ 60 Radial] Respiratory 13 16 20 Rate Blood Pressure 104/27 104/27 104/27 O2 Sat by Pulse 96 98 92 Oximetry 05/31/21 05/31/21 05/31/21 12:06 12:08 12:10 Temperature Pulse Rate 61 57 L 63 Pulse Rate [ Radial] Respiratory 13 16 12 Rate Blood Pressure 104/27 104/27 104/27 O2 Sat by Pulse 97 97 99 Oximetry 05/31/21 05/31/21 05/31/21 12:12 12:14 12:16 Temperature Pulse Rate 63 62 63 Pulse Rate [ Radial] Respiratory 11 L 15 13 Rate Blood Pressure 104/27 104/27 101/29 O2 Sat by Pulse 98 97 97 Oximetry 05/31/21 05/31/21 05/31/21 12:18 12:20 12:22 Temperature Pulse Rate 60 61 51 L Pulse Rate [ Radial] Respiratory 18 15 16 Rate Blood Pressure 101/29 101/29 101/29 O2 Sat by Pulse 99 94 96 Oximetry 05/31/21 05/31/21 05/31/21 12:24 12:26 12:28 Temperature Pulse Rate 54 L 57 L 58 L Pulse Rate [ Radial] Respiratory 15 11 L 15 Rate Blood Pressure 101/29 101/29 101/29 O2 Sat by Pulse 98 99 98 Oximetry 05/31/21 05/31/21 05/31/21 12:30 12:32 12:34 Temperature Pulse Rate 56 L 64 60 Pulse Rate [ Radial] Respiratory 15 14 17 Rate Blood Pressure 101/29 144/40 144/40 O2 Sat by Pulse 99 100 98 Oximetry 05/31/21 05/31/21 05/31/21 12:36 12:38 12:40 Temperature Pulse Rate 58 L 51 L 59 L Pulse Rate [ Radial] Respiratory 17 16 16 Rate Blood Pressure 144/40 144/40 144/40 O2 Sat by Pulse 98 97 97 Oximetry 05/31/21 05/31/21 05/31/21 12:42 12:44 12:46 Temperature Pulse Rate 52 L 48 L 59 L Pulse Rate [ Radial] Respiratory 16 16 16 Rate Blood Pressure 144/40 144/40 109/37 O2 Sat by Pulse 97 97 98 Oximetry 05/31/21 05/31/21 05/31/21 12:48 12:50 12:52 Temperature Pulse Rate 58 L 53 L 53 L Pulse Rate [ Radial] Respiratory 17 17 17 Rate Blood Pressure 109/37 109/37 109/37 O2 Sat by Pulse 97 97 96 Oximetry 05/31/21 05/31/21 05/31/21 12:54 12:56 12:58 Temperature Pulse Rate 51 L 53 L 53 L Pulse Rate [ Radial] Respiratory 16 17 17 Rate Blood Pressure 109/37 109/37 109/37 O2 Sat by Pulse 98 97 97 Oximetry 05/31/21 05/31/21 05/31/21 13:00 13:02 13:04 Temperature Pulse Rate 52 L 53 L 53 L Pulse Rate [ Radial] Respiratory 17 17 16 Rate Blood Pressure 132/32 132/32 132/32 O2 Sat by Pulse 98 97 98 Oximetry 05/31/21 05/31/21 05/31/21 13:06 13:08 13:10 Temperature Pulse Rate 51 L 50 L 49 L Pulse Rate [ Radial] Respiratory 16 15 16 Rate Blood Pressure 132/32 132/32 132/32 O2 Sat by Pulse 98 97 97 Oximetry 05/31/21 05/31/21 05/31/21 13:12 13:14 13:16 Temperature Pulse Rate 52 L 52 L 54 L Pulse Rate [ Radial] Respiratory 19 17 18 Rate Blood Pressure 132/32 132/32 136/37 O2 Sat by Pulse 97 97 98 Oximetry 05/31/21 05/31/21 05/31/21 13:18 13:20 13:22 Temperature Pulse Rate 52 L 51 L 56 L Pulse Rate [ Radial] Respiratory 16 17 13 Rate Blood Pressure 136/37 136/37 136/37 O2 Sat by Pulse 97 98 99 Oximetry 05/31/21 05/31/21 05/31/21 13:24 13:26 13:28 Temperature Pulse Rate 52 L 54 L 55 L Pulse Rate [ Radial] Respiratory 17 21 18 Rate Blood Pressure 136/37 136/37 136/37 O2 Sat by Pulse 97 97 97 Oximetry 05/31/21 13:30 Temperature Pulse Rate 56 L Pulse Rate [ Radial] Respiratory 16 Rate Blood Pressure 135/32 O2 Sat by Pulse 98 Oximetry CBC and BMP: 05/31/21 14:19 05/31/21 04:15 ABG, PT/INR, D-dimer: PT/INR, D-dimer PT 18.1 Sec. (12.2-14.9) H 05/29/21 03:57 INR 1.33 (0.87-1.13) H 05/29/21 03:57 Abnormal lab findings: Abnormal Labs 05/29/21 05/29/21 05/29/21 01:16 01:16 01:52 WBC RBC 1.56 L Hgb 5.3 L* Hct 15.9 L* MCV 102 H MCH 34 H RDW Plt Count 131 L Lymph % (Auto) 11.4 L [place] % (Auto) Lymph # (Auto) 0.9 L [place] # (Auto) Seg Neutrophils % 82.9 H Seg Neutrophils # PT INR Potassium Carbon Dioxide 21 L BUN 69 H Creatinine 2.5 H Glucose 112 H Calcium 8.0 L Total Protein 4.8 L Albumin 3.0 L Lipase 73 H Urine WBC (Auto) Crossmatch 05/29/21 05/29/21 05/29/21 03:57 03:57 06:35 WBC RBC Hgb Hct MCV MCH RDW Plt Count Lymph % (Auto) [place] % (Auto) Lymph # (Auto) [place] # (Auto) Seg Neutrophils % Seg Neutrophils # PT 18.1 H INR 1.33 H Potassium Carbon Dioxide BUN Creatinine Glucose Calcium Total Protein Albumin Lipase Urine WBC (Auto) 10.0 H Crossmatch See Detail 05/30/21 05/30/21 05/31/21 03:03 03:03 04:15 WBC 13.0 H RBC 2.05 L 3.42 L Hgb 6.2 L 9.3 L D Hct 18.7 L* 28.2 L D MCV MCH 27 L RDW 17.5 H 20.2 H Plt Count 108 L 101 L Lymph % (Auto) 8.9 L 7.3 L [place] % (Auto) 8.5 H 9.8 H Lymph # (Auto) 0.9 L 1.0 L [place] # (Auto) 0.9 H 1.3 H Seg Neutrophils % 81.6 H 82.0 H Seg Neutrophils # 8.3 H 10.7 H PT INR Potassium 5.2 H Carbon Dioxide 18 L BUN 135 H Creatinine 4.1 H D Glucose 163 H Calcium 7.5 L Total Protein Albumin Lipase Urine WBC (Auto) Crossmatch 05/31/21 05/31/21 04:15 14:19 WBC RBC Hgb 8.9 L Hct 26.8 L MCV MCH RDW Plt Count 113 L Lymph % (Auto) [place] % (Auto) Lymph # (Auto) [place] # (Auto) Seg Neutrophils % Seg Neutrophils # PT INR Potassium Carbon Dioxide BUN 46 H Creatinine 2.6 H Glucose 135 H Calcium 7.6 L Total Protein Albumin Lipase Urine WBC (Auto) Crossmatch Allied health notes reviewed: nursing
[2021-06-01 05:10] LABS: Basophils % (Auto) 0.3 % (0.0-1.8); Eosinophils # (Auto) 0.4 K/mm3 (0.0-0.4); Eosinophils % (Auto) 4.5 % (0.0-4.3); Hemoglobin 8.5 gm/dl (10.1-14.3); Lymphocytes # (Auto) 1.4 K/mm3 (1.2-5.4); Lymphocytes % (Auto) 16.3 % (13.4-35.0); Mean Corpuscular HGB Conc 33 % (30-34); Mean Corpuscular Volume 86 fl (79-97); Monocytes # (Auto) 1.1 K/mm3 (0.0-0.8); Monocytes % (Auto) 12.6 % (0.0-7.3); Platelet Count 122 K/mm3 (140-440); Red Blood Count 3.03 M/mm3 (3.65-5.03); Red Cell Distribution Width 20.7 % (13.2-15.2)
[2021-06-01 05:32] LABS: Calcium 7.3 mg/dL (8.4-10.2)
[2021-06-01] MEDS: MORPHINE 2 MG/1 ML INJ IV PRN ×2 (06:20→10:52)
[2021-06-01] MEDS: PANTOPRAZOLE 40 MG INJ IV SCH (09:36)
[2021-06-01] MEDS: MIDODRINE 10 MG TAB PO SCH (09:37)
--- NOTE | 2021-06-01 09:48 | Progress Note ---
Assessment and Plan Assessment * End stage renal disease (Outpatient HD at [facility]) * Symptomatic anemia of ABL * GI bleed * Atrial fibrillation with RVR * Azotemia - multifactorial, 2/2 GI bleed vs ESRD * Hypertension * Secondary hyperparathyroidism Plan: * Continue MWF schedule -UF a tolerated * Transfuse pRBC prn * GI recommendations noted * Rate control per cardiology * Epogen prn * AM labs * Dose medications for renal function Subjective Date of service: 06/01/21 Principal diagnosis: ABLA Interval history: Patient complains of leg cramps overnight and today. Objective - Vital Signs Vital signs: Vital Signs - 12hr 05/31/21 05/31/21 05/31/21 22:01 22:09 23:00 Temperature Pulse Rate 62 66 59 L Pulse Rate [ Radial] Respiratory 22 15 20 Rate Blood Pressure 127/30 127/30 101/29 O2 Sat by Pulse 97 99 93 Oximetry 05/31/21 06/01/21 06/01/21 23:48 00:00 01:01 Temperature 98.1 F Pulse Rate 52 L 49 L Pulse Rate [ 61 Radial] Respiratory 18 15 12 Rate Blood Pressure 103/27 126/29 O2 Sat by Pulse 95 98 Oximetry 06/01/21 06/01/21 06/01/21 02:00 03:01 04:00 Temperature 98.3 F Pulse Rate 51 L 48 L 49 L Pulse Rate [ 61 Radial] Respiratory 13 12 12 Rate Blood Pressure 121/30 105/30 123/27 O2 Sat by Pulse 97 96 97 Oximetry 06/01/21 06/01/21 06/01/21 05:00 06:01 06:20 Temperature Pulse Rate 48 L 61 Pulse Rate [ Radial] Respiratory 12 15 13 Rate Blood Pressure 127/29 139/30 O2 Sat by Pulse 97 96 Oximetry 06/01/21 06/01/21 06/01/21 07:00 08:00 08:48 Temperature 97.7 F Pulse Rate 49 L 48 L Pulse Rate [ 61 Radial] Respiratory 12 15 Rate Blood Pressure 120/31 121/35 O2 Sat by Pulse 97 99 96 Oximetry - General Appearance General appearance: well-developed, well-nourished EENT: ATNC Respiratory: Present: Clear to Ascultation Cardiology: regular, S1S2 Gastrointestinal: normal Integumentary: warm and dry Neurologic: alert and oriented x3 Psychiatric: cooperative - Lab 06/02/21 07:24 06/02/21 07:24 Most recent lab results Calcium 7.3 mg/dL (8.4-10.2) L 06/01/21 04:42 Phosphorus 4.80 mg/dL (2.5-4.5) H 06/01/21 04:42 Magnesium 1.70 mg/dL (1.7-2.3) 06/01/21 04:42 Medications & Allergies - Medications Allergies/Adverse Reactions: Allergies celecoxib [From Celebrex] Allergy (Verified 05/30/21 12:42) FACE SWELLING sulfamethoxazole [From Bactrim] Allergy (Verified 05/30/21 12:42) Swelling trimethoprim [From Bactrim] Allergy (Verified 05/30/21 12:42) Swelling Active Medications: Generic Name Dose Route Start Last Admin Trade Name Freq PRN Reason Stop Dose Admin Acetaminophen 650 mg 05/29/21 05:28 05/31/21 01:00 Acetaminophen 325 Mg Tab PO 650 mg Q4H PRN Administration Pain MILD(1-3)/Fever >100.5/LOVE Albumin Human 25 gm 05/29/21 16:05 Albumin Human 25% (25 Gm/100 Ml) Inj IV ASHLEY PRN Hypotension Epoetin Salas-epbx 20,000 unit 05/29/21 16:05 05/30/21 22:38 Epoetin Salas-Epbx 20,000 Unit/1 Ml Vial IV 20,000 unit ASHLEY PRN Administration hemodialysis Hydrocortisone Acetate 1 applic 05/30/21 14:00 Hydrocortisone 1% Cream 28.4gm TP Q8H PRN Skin Irritation Sodium Chloride 100 mls @ 999 mls/hr 05/29/21 16:05 Nacl 0.9% IV ASHLEY PRN Hypotension Metoprolol Tartrate 2.5 mg 05/30/21 16:00 Metoprolol Tartrate 5 Mg/5 Ml Inj IV Q6HR PRN HR >120 Midodrine 10 mg 05/31/21 12:00 06/01/21 09:37 Midodrine 10 Mg Tab PO 10 mg TID@0800,1200,1600 ELAINE Administration Morphine Sulfate 2 mg 05/29/21 05:28 06/01/21 06:20 Morphine 2 Mg/1 Ml Inj IV 2 mg Q4H PRN Administration Pain, Moderate (4-6) Ondansetron HCl 4 mg 05/29/21 05:28 Ondansetron 4 Mg/2 Ml Inj IV Q8H PRN Nausea And Vomiting Pantoprazole Sodium 40 mg 05/29/21 22:00 06/01/21 09:36 Pantoprazole 40 Mg Inj IV 40 mg BID ELAINE Administration Sodium Chloride 10 ml 05/29/21 10:00 06/01/21 09:36 Sodium Chloride 0.9% 10 Ml Flush Syringe IV 10 ml BID ELAINE Administration Sodium Chloride 10 ml 05/29/21 05:28 Sodium Chloride 0.9% 10 Ml Flush Syringe IV PRN PRN LINE FLUSH
[2021-06-01] MEDS ORDERED: SODIUM CHLORIDE 0.9% 100 ML IV PRN (10:00)
--- NOTE | 2021-06-01 10:37 | Progress Note ---
<MIRA HAMMOND - Last Filed: 06/01/21 17:40> Assessment and Plan Assessment and plan: This is a 80-year-old female with known past medical history of HTN, ESRD on HD initially admitted to floor for severe anemia 2/2 of possible GIB. Patient was transferred in the ICU on 05/30 due to new onset atrial fibrillation, HR sust aining in the 140s. Hospital Course to Date: 05/30/2021- patient went into A. fib with rapid ventricular rate, cardiology consulted. Started amiodarone drip, transfer to ICU for close observation . Unable to start anticoagulation due to severe anemia and GI bleeding.. Endoscopy rescheduled for tomorrow Continue to monitor in ICU 05/31: S/p EGD this am, duodenal bulb ulcer noted which was clipped and bx, otherwise unremarkable EGD per GI. Patient is hypotensive this am post procedure, probably related to sedation vs hypovolemia. S/p 250mg of NS bolus with some improvement, and PO midodrine added. Amiodorone gtt is on hold this am due to bradycardia and hypotension. SR with a HR in the low 50s noted on the monitor, 12lead EKg ordered to confirm conversion. Patient's H&H is stable this am, GI recommendations noted. Patient is tolerating clear liquid diet, continue PPI, and trend H&H Q8hr, transfuse if hgb is less than 7. 06/01: Remains stable, on RA. SB noted on the monitor with wide pulse pressure. No s/s of any active bleeding overnight, H&H remains stable. D/w Cardio patient is stable for transfer to Telemetry. Plan for HD today. Continue PRN analgesia for pain management, PT eval and treat pending. Assessment and Plan #Atrial Fibrillation with Rapid Ventricular Rate - Went into Afib with RVR on the floor, HR as high as 140s - Unclear if patient has a history, most likely new onset - Cardiology on consult, appreciated recommendations - s/p Amiodorone gtt - 05/31 Coverted to Sinus, EKG confirmed SB - Continue PRN IV metoprolol for HR greater than 120 - Patient not a candidate for Anticoagulation at this time due to severe anemia and possible GIB - [facility] is also consulted, appreciate recommendations #Hypotension-improved #H/o Hypertension - probably 2/2 hypovolemia vs sedation post EGD procedure - Wide pulse pressure, patient is asymptomatic - Continue Midodrine - Continue to trend H&H, transfuse if hbg less than 7 - Continue blood pressure monitor per protocol - Maintain SBP less than 160 #Severe Anemia #Thrombocytopenia #Melena #Possible Upper GI Bleeding - Presented with Hgb of 5.3 and Hct of 15.9 - Stool guaiac is positive in the ED - s/p 2units of PRBCs - GI consulted, appreciate recommendations - 05/31 s/p EGD with endoscopic clipping which revealed 1cm Duodenal bulb ulcer (clipped x 2), Cold bx antrum for H pylori. Normal stomach and esophagus - No s/s of any active bleeding - H&H remains stable - Continue PPI- Protonix BID - On Full liquid diet, advance as tolerated - Will continue to trend CBC - Transfuse if Hgb is less than 7 #ESRD on HD- MWF - Patient is anuric - Nephrology on consult, appreciated recommendation - Continue HD per Nephro - Strict intake and output - Avoid nephrotoxic medications; Renally dose medications - Monitor and replace electrolytes as needed #GI/DVT Prophylaxis - PPI- IV protonix - SCD for DVT prophylaxis. The high probability of a clinically significant, sudden or life threatening deterioration of the [multiple] system(s) required my full and direct attention, intervention and personal management. The aggregate critical care time was [60] minutes. This time is in addition to time spent performing reported procedures but includes the following: [x] Data Review and interpretation [x] Patient assessment and monitoring of vital signs [x] Documentation [x] Medication orders and management Disposition Plan: ICU Total Time Spent with Patient (Minutes): 60 History Interval history: Patient seen and examined at the bedside. Patient remains stable, Fully AAO, on RA. c/o of bilateral legs cramp like pain which is control with current PRN analgesia. Patient remains SB on the monitor, HR in the 40-50s with wide pulse pressure. Otherwise NUBIA overnight Hospitalist Physical - Constitutional Vitals: Temp Pulse Resp BP Pulse Ox 97.7 F 53 L 12 135/33 95 06/01/21 08:00 06/01/21 10:01 06/01/21 10:01 06/01/21 10:01 06/01/21 10:01 General appearance: Present: no acute distress - EENT Eyes: Present: PERRL, EOM intact ENT: hearing intact, clear oral mucosa - Neck Neck: Present: normal ROM - Respiratory Respiratory effort: normal Respiratory: bilateral: diminished - Cardiovascular Rhythm: regular Heart Sounds: Present: S1 & S2 - Extremities Extremities: no ischemia, pulses intact, pulses symmetrical Extremity abnormal: edema - Peripheral Assessment Generalized Edema Type: Pitting Edema Degree: 2+ Capillary Refill: < 3 seconds Skin Temperature: Warm Peripheral Pulses: within normal limits - Abdominal General gastrointestinal: soft, non-distended, hypoactive bowel sounds - Integumentary Integumentary: Present: clear, warm, dry - Psychiatric Psychiatric: appropriate mood/affect, cooperative - Neurologic Neurologic: CNII-XII intact, moves all extremities - Allied Health Allied health notes reviewed: nursing, case management Results - Labs CBC & Chem 7: 06/01/21 04:42 06/01/21 04:42 Labs: Laboratory Last Values WBC 8.7 K/mm3 (4.5-11.0) 06/01/21 04:42 RBC 3.03 M/mm3 (3.65-5.03) L 06/01/21 04:42 Hgb 8.5 gm/dl (10.1-14.3) L 06/01/21 04:42 Hct 26.0 % (30.3-42.9) L 06/01/21 04:42 MCV 86 fl (79-97) 06/01/21 04:42 MCH 28 pg (28-32) 06/01/21 04:42 MCHC 33 % (30-34) 06/01/21 04:42 RDW 20.7 % (13.2-15.2) H 06/01/21 04:42 Plt Count 122 K/mm3 (140-440) L 06/01/21 04:42 Lymph % (Auto) 16.3 % (13.4-35.0) 06/01/21 04:42 [place]field % (Auto) 12.6 % (0.0-7.3) H 06/01/21 04:42 Eos % (Auto) 4.5 % (0.0-4.3) H 06/01/21 04:42 Baso % (Auto) 0.3 % (0.0-1.8) 06/01/21 04:42 Lymph # (Auto) 1.4 K/mm3 (1.2-5.4) 06/01/21 04:42 [place]field # (Auto) 1.1 K/mm3 (0.0-0.8) H 06/01/21 04:42 Eos # (Auto) 0.4 K/mm3 (0.0-0.4) 06/01/21 04:42 Baso # (Auto) 0.0 K/mm3 (0.0-0.1) 06/01/21 04:42 Seg Neutrophils % 66.3 % (40.0-70.0) 06/01/21 04:42 Seg Neutrophils # 5.8 K/mm3 (1.8-7.7) 06/01/21 04:42 PT 18.1 Sec. (12.2-14.9) H 05/29/21 03:57 INR 1.33 (0.87-1.13) H 05/29/21 03:57 APTT 32.3 Sec. (24.2-36.6) 05/29/21 03:57 Sodium 140 mmol/L (137-145) 06/01/21 04:42 Potassium 4.2 mmol/L (3.6-5.0) 06/01/21 04:42 Chloride 104.4 mmol/L (98-107) 06/01/21 04:42 Carbon Dioxide 24 mmol/L (22-30) 06/01/21 04:42 Anion Gap 16 mmol/L 06/01/21 04:42 BUN 56 mg/dL (7-17) H 06/01/21 04:42 Creatinine 3.9 mg/dL (0.6-1.2) H 06/01/21 04:42 Estimated GFR 11 ml/min 06/01/21 04:42 BUN/Creatinine Ratio 14 % 06/01/21 04:42 Glucose 100 mg/dL (65-100) 06/01/21 04:42 POC Glucose 99 mg/dL (70-105) 05/31/21 11:55 Lactic Acid 1.70 mmol/L (0.7-2.0) 05/31/21 04:15 Calcium 7.3 mg/dL (8.4-10.2) L 06/01/21 04:42 Phosphorus 4.80 mg/dL (2.5-4.5) H 06/01/21 04:42 Magnesium 1.70 mg/dL (1.7-2.3) 06/01/21 04:42 Total Bilirubin 0.20 mg/dL (0.1-1.2) 05/29/21 01:16 AST 15 units/L (5-40) 05/29/21 01:16 ALT 15 units/L (7-56) 05/29/21 01:16 Alkaline Phosphatase 35 units/L (35-129) 05/29/21 01:16 Total Protein 4.8 g/dL (6.3-8.2) L 05/29/21 01:16 Albumin 3.0 g/dL (3.9-5) L 05/29/21 01:16 Albumin/Globulin Ratio 1.7 % 05/29/21 01:16 Lipase 73 units/L (13-60) H 05/29/21 01:52 Urine Color Straw (Yellow) 05/29/21 06:35 Urine Turbidity Clear (Clear) 05/29/21 06:35 Urine pH 7.0 (5.0-7.0) 05/29/21 06:35 Ur Specific [place] 1.011 (1.003-1.030) 05/29/21 06:35 Urine Protein <15 mg/dl mg/dL (Negative) 05/29/21 06:35 Urine Glucose (UA) Neg mg/dL (Negative) 05/29/21 06:35 Urine Ketones Neg mg/dL (Negative) 05/29/21 06:35 Urine Blood Sm (Negative) 05/29/21 06:35 Urine Nitrite Neg (Negative) 05/29/21 06:35 Urine Bilirubin Neg (Negative) 05/29/21 06:35 Urine Urobilinogen < 2.0 mg/dL (<2.0) 05/29/21 06:35 Ur Leukocyte Esterase Sm (Negative) 05/29/21 06:35 Urine WBC (Auto) 10.0 /HPF (0.0-6.0) H 05/29/21 06:35 Urine RBC (Auto) 1.0 /HPF (0.0-6.0) 05/29/21 06:35 U Epithel Cells (Auto) < 1.0 /HPF (0-13.0) 05/29/21 06:35 Urine Mucus Few /HPF 05/29/21 06:35 Urine Yeast (Budding) Few /HPF 05/29/21 06:35 Hep Bs Antigen Non-reactive (Negative) 05/30/21 03:03 Hep B Core IgM Ab Non-reactive (NonReactive) 05/30/21 03:03 Hepatitis C Antibody Non-reactive (NonReactive) 05/30/21 03:03 Blood Type A POSITIVE 05/29/21 03:57 Antibody Screen Negative 05/29/21 03:57 Crossmatch See Detail 05/29/21 03:57 Microbiology: Microbiology 05/29/21 06:35 Urine,Clean Catch Urine Culture - Final Benjamin/IV: Voiding Method External Female Catheter Active Medications - Current Medications Current Medications: Generic Name Dose Route Start Last Admin Trade Name Freq PRN Reason Stop Dose Admin Acetaminophen 650 mg 05/29/21 05:28 05/31/21 01:00 Acetaminophen 325 Mg Tab PO 650 mg Q4H PRN Administration Pain MILD(1-3)/Fever >100.5/LOVE Albumin Human 25 gm 05/29/21 16:05 Albumin Human 25% (25 Gm/100 Ml) Inj IV ASHLEY PRN Hypotension Epoetin Salas-epbx 20,000 unit 05/29/21 16:05 05/30/21 22:38 Epoetin Salas-Epbx 20,000 Unit/1 Ml Vial IV 20,000 unit ASHLEY PRN Administration hemodialysis Hydrocortisone Acetate 1 applic 05/30/21 14:00 Hydrocortisone 1% Cream 28.4gm TP Q8H PRN Skin Irritation Sodium Chloride 100 mls @ 999 mls/hr 06/01/21 10:00 Nacl 0.9% IV ASHLEY PRN Hypotension Metoprolol Tartrate 2.5 mg 05/30/21 16:00 Metoprolol Tartrate 5 Mg/5 Ml Inj IV Q6HR PRN HR >120 Midodrine 5 mg 06/01/21 12:00 Midodrine 2.5 Mg Tab PO TID@0800,1200,1600 ELAINE Morphine Sulfate 2 mg 05/29/21 05:28 06/01/21 06:20 Morphine 2 Mg/1 Ml Inj IV 2 mg Q4H PRN Administration Pain, Moderate (4-6) Ondansetron HCl 4 mg 05/29/21 05:28 Ondansetron 4 Mg/2 Ml Inj IV Q8H PRN Nausea And Vomiting Pantoprazole Sodium 40 mg 06/01/21 16:30 Pantoprazole 40 Mg Tab PO BIDAC ELAINE Sodium Chloride 10 ml 05/29/21 10:00 06/01/21 09:36 Sodium Chloride 0.9% 10 Ml Flush Syringe IV 10 ml BID ELAINE Administration Sodium Chloride 10 ml 05/29/21 05:28 Sodium Chloride 0.9% 10 Ml Flush Syringe IV PRN PRN LINE FLUSH <SHANNAN MARROQUIN - Last Filed: 06/02/21 07:09> Assessment and Plan Assessment and plan: I saw and evaluated the patient. I agree with the findings and the plan of care as documented in the Nurse Practitioner's~note, with the following corrections and additions. Hospitalist Physical - Constitutional Vitals: Temp Pulse Resp BP Pulse Ox 98.6 F 99 H 18 118/50 96 06/02/21 04:10 06/02/21 04:10 06/02/21 04:10 06/02/21 04:10 06/02/21 04:10 Results - Labs CBC & Chem 7: 06/01/21 04:42 06/01/21 04:42 Labs: Laboratory Last Values WBC 8.7 K/mm3 (4.5-11.0) 06/01/21 04:42 RBC 3.03 M/mm3 (3.65-5.03) L 06/01/21 04:42 Hgb 8.5 gm/dl (10.1-14.3) L 06/01/21 04:42 Hct 26.0 % (30.3-42.9) L 06/01/21 04:42 MCV 86 fl (79-97) 06/01/21 04:42 MCH 28 pg (28-32) 06/01/21 04:42 MCHC 33 % (30-34) 06/01/21 04:42 RDW 20.7 % (13.2-15.2) H 06/01/21 04:42 Plt Count 122 K/mm3 (140-440) L 06/01/21 04:42 Lymph % (Auto) 16.3 % (13.4-35.0) 06/01/21 04:42 Garfield % (Auto) 12.6 % (0.0-7.3) H 06/01/21 04:42 Eos % (Auto) 4.5 % (0.0-4.3) H 06/01/21 04:42 Baso % (Auto) 0.3 % (0.0-1.8) 06/01/21 04:42 Lymph # (Auto) 1.4 K/mm3 (1.2-5.4) 06/01/21 04:42 Garfield # (Auto) 1.1 K/mm3 (0.0-0.8) H 06/01/21 04:42 Eos # (Auto) 0.4 K/mm3 (0.0-0.4) 06/01/21 04:42 Baso # (Auto) 0.0 K/mm3 (0.0-0.1) 06/01/21 04:42 Seg Neutrophils % 66.3 % (40.0-70.0) 06/01/21 04:42 Seg Neutrophils # 5.8 K/mm3 (1.8-7.7) 06/01/21 04:42 PT 18.1 Sec. (12.2-14.9) H 05/29/21 03:57 INR 1.33 (0.87-1.13) H 05/29/21 03:57 APTT 32.3 Sec. (24.2-36.6) 05/29/21 03:57 Sodium 140 mmol/L (137-145) 06/01/21 04:42 Potassium 4.2 mmol/L (3.6-5.0) 06/01/21 04:42 Chloride 104.4 mmol/L (98-107) 06/01/21 04:42 Carbon Dioxide 24 mmol/L (22-30) 06/01/21 04:42 Anion Gap 16 mmol/L 06/01/21 04:42 BUN 56 mg/dL (7-17) H 06/01/21 04:42 Creatinine 3.9 mg/dL (0.6-1.2) H 06/01/21 04:42 Estimated GFR 11 ml/min 06/01/21 04:42 BUN/Creatinine Ratio 14 % 06/01/21 04:42 Glucose 100 mg/dL (65-100) 06/01/21 04:42 POC Glucose 99 mg/dL (70-105) 05/31/21 11:55 Lactic Acid 1.70 mmol/L (0.7-2.0) 05/31/21 04:15 Calcium 7.3 mg/dL (8.4-10.2) L 06/01/21 04:42 Phosphorus 4.80 mg/dL (2.5-4.5) H 06/01/21 04:42 Magnesium 1.70 mg/dL (1.7-2.3) 06/01/21 04:42 Total Bilirubin 0.20 mg/dL (0.1-1.2) 05/29/21 01:16 AST 15 units/L (5-40) 05/29/21 01:16 ALT 15 units/L (7-56) 05/29/21 01:16 Alkaline Phosphatase 35 units/L (35-129) 05/29/21 01:16 Total Protein 4.8 g/dL (6.3-8.2) L 05/29/21 01:16 Albumin 3.0 g/dL (3.9-5) L 05/29/21 01:16 Albumin/Globulin Ratio 1.7 % 05/29/21 01:16 Lipase 73 units/L (13-60) H 05/29/21 01:52 Urine Color Straw (Yellow) 05/29/21 06:35 Urine Turbidity Clear (Clear) 05/29/21 06:35 Urine pH 7.0 (5.0-7.0) 05/29/21 06:35 Ur Specific [place] 1.011 (1.003-1.030) 05/29/21 06:35 Urine Protein <15 mg/dl mg/dL (Negative) 05/29/21 06:35 Urine Glucose (UA) Neg mg/dL (Negative) 05/29/21 06:35 Urine Ketones Neg mg/dL (Negative) 05/29/21 06:35 Urine Blood Sm (Negative) 05/29/21 06:35 Urine Nitrite Neg (Negative) 05/29/21 06:35 Urine Bilirubin Neg (Negative) 05/29/21 06:35 Urine Urobilinogen < 2.0 mg/dL (<2.0) 05/29/21 06:35 Ur Leukocyte Esterase Sm (Negative) 05/29/21 06:35 Urine WBC (Auto) 10.0 /HPF (0.0-6.0) H 05/29/21 06:35 Urine RBC (Auto) 1.0 /HPF (0.0-6.0) 05/29/21 06:35 U Epithel Cells (Auto) < 1.0 /HPF (0-13.0) 05/29/21 06:35 Urine Mucus Few /HPF 05/29/21 06:35 Urine Yeast (Budding) Few /HPF 05/29/21 06:35 Hep Bs Antigen Non-reactive (Negative) 05/30/21 03:03 Hep B Core IgM Ab Non-reactive (NonReactive) 05/30/21 03:03 Hepatitis C Antibody Non-reactive (NonReactive) 05/30/21 03:03 Blood Type A POSITIVE 05/29/21 03:57 Antibody Screen Negative 05/29/21 03:57 Crossmatch See Detail 05/29/21 03:57 Benjamin/IV: Voiding Method Bedpan Active Medications - Current Medications Current Medications: Generic Name Dose Route Start Last Admin Trade Name Freq PRN Reason Stop Dose Admin Acetaminophen 650 mg 05/29/21 05:28 05/31/21 01:00 Acetaminophen 325 Mg Tab PO 650 mg Q4H PRN Administration Pain MILD(1-3)/Fever >100.5/LOVE Albumin Human 25 gm 05/29/21 16:05 Albumin Human 25% (25 Gm/100 Ml) Inj IV ASHLEY PRN Hypotension Epoetin Salas-epbx 20,000 unit 05/29/21 16:05 05/30/21 22:38 Epoetin Salas-Epbx 20,000 Unit/1 Ml Vial IV 20,000 unit ASHLEY PRN Administration hemodialysis Hydrocortisone Acetate 1 applic 05/30/21 14:00 Hydrocortisone 1% Cream 28.4gm TP Q8H PRN Skin Irritation Sodium Chloride 100 mls @ 999 mls/hr 06/01/21 10:00 Nacl 0.9% IV ASHLEY PRN Hypotension Metoprolol Tartrate 2.5 mg 05/30/21 16:00 Metoprolol Tartrate 5 Mg/5 Ml Inj IV Q6HR PRN HR >120 Midodrine 5 mg 06/01/21 12:00 06/01/21 16:21 Midodrine 5 Mg Tab PO 5 mg TID@0800,1200,1600 ELAINE Administration Morphine Sulfate 2 mg 05/29/21 05:28 06/01/21 10:52 Morphine 2 Mg/1 Ml Inj IV 2 mg Q4H PRN Administration Pain, Moderate (4-6) Ondansetron HCl 4 mg 05/29/21 05:28 06/01/21 17:15 Ondansetron 4 Mg/2 Ml Inj IV 4 mg Q8H PRN Administration Nausea And Vomiting Pantoprazole Sodium 40 mg 06/02/21 10:00 Pantoprazole 40 Mg Tab PO DAILY ELAINE Sodium Chloride 10 ml 05/29/21 10:00 06/01/21 22:04 Sodium Chloride 0.9% 10 Ml Flush Syringe IV 10 ml BID ELAINE Administration Sodium Chloride 10 ml 05/29/21 05:28 Sodium Chloride 0.9% 10 Ml Flush Syringe IV PRN PRN LINE FLUSH
[2021-06-01] MEDS: MIDODRINE 5 MG TAB PO SCH ×2 (12:08→16:21)
--- NOTE | 2021-06-01 13:59 | Progress Note ---
Assessment and Plan - Patient Problems (1) Atrial fibrillation with rapid ventricular response Current Visit: Yes Status: Acute Plan to address problem: 80-year-old woman admitted with severe anemia, hematocrit of 15, suspected GI bleeding. While hospitalized, she developed rapid atrial fibrillation, which has reverted to sinus with medical therapy. Due to persistent bradycardia, we have discontinued AV yasmin blocking agents. Continue to watch sinus bradycardia. Due to the active and ongoing profound anemia, patient is not a candidate for anticoagulation now or in the near term in the outpatient. Subjective Date of service: 06/01/21 Principal diagnosis: GI bleed, anemia Interval history: Patient appears comfortable, no acute distress. On engine monitor, she has a stable, sinus bradycardia with heart rate mid 50s. Objective Vital Signs Temp Pulse Pulse Resp BP Pulse Ox 06/01/21 12:00 97.7 F 06/01/21 11:01 49 L 13 135/34 96 06/01/21 10:01 53 L 12 135/33 95 06/01/21 09:01 52 L 12 129/32 97 06/01/21 08:48 96 06/01/21 08:00 97.7 F 48 L 61 15 121/35 99 06/01/21 07:00 49 L 12 120/31 97 06/01/21 06:20 13 06/01/21 06:01 61 15 139/30 96 06/01/21 05:00 48 L 12 127/29 97 06/01/21 04:00 98.3 F 49 L 61 12 123/27 97 06/01/21 03:01 48 L 12 105/30 96 06/01/21 02:00 51 L 13 121/30 97 06/01/21 01:01 49 L 12 126/29 98 06/01/21 00:00 98.1 F 52 L 61 15 103/27 95 05/31/21 23:48 18 05/31/21 23:00 59 L 20 101/29 93 05/31/21 22:09 66 15 127/30 99 05/31/21 22:01 62 22 127/30 97 05/31/21 21:01 52 L 14 129/27 97 05/31/21 20:01 52 L 14 105/27 97 05/31/21 20:00 98.3 F 61 15 99 05/31/21 19:43 96 05/31/21 19:00 59 L 16 128/38 98 05/31/21 18:46 59 L 17 132/30 94 05/31/21 18:45 58 L 14 113/36 95 05/31/21 18:43 60 15 113/36 98 05/31/21 18:41 70 20 113/36 97 05/31/21 18:39 66 12 113/36 97 05/31/21 18:37 67 15 113/36 98 05/31/21 18:35 61 19 113/36 98 05/31/21 18:33 60 21 113/36 87 05/31/21 18:31 68 22 113/36 98 05/31/21 18:29 65 14 130/28 97 05/31/21 18:27 65 16 130/28 98 05/31/21 18:25 56 L 22 130/28 98 05/31/21 18:23 62 16 130/28 97 05/31/21 18:21 63 13 130/28 98 05/31/21 18:19 62 25 H 130/28 92 05/31/21 18:17 60 12 130/28 97 05/31/21 18:15 57 L 18 130/28 98 05/31/21 18:13 57 L 13 119/44 97 05/31/21 18:11 60 26 H 119/44 98 05/31/21 18:09 57 L 19 119/44 94 05/31/21 18:07 53 L 15 119/44 96 05/31/21 18:05 53 L 15 119/44 97 05/31/21 18:03 61 21 119/44 96 05/31/21 18:00 58 L 14 119/44 98 05/31/21 17:59 51 L 13 132/32 97 05/31/21 17:57 49 L 14 132/32 97 05/31/21 17:55 49 L 15 132/32 96 05/31/21 17:53 52 L 16 132/32 95 05/31/21 17:51 59 L 14 132/32 97 05/31/21 17:49 49 L 18 132/32 97 05/31/21 17:47 56 L 15 88/52 99 05/31/21 17:42 64 17 111/29 98 05/31/21 17:40 61 12 111/29 98 05/31/21 17:38 61 15 111/29 97 05/31/21 17:36 64 13 111/29 99 05/31/21 17:34 57 L 18 111/29 93 05/31/21 17:32 59 L 17 111/29 96 05/31/21 17:30 61 18 104/35 83 L 05/31/21 17:28 64 18 104/35 91 05/31/21 17:26 61 19 104/35 96 05/31/21 17:24 59 L 11 L 104/35 97 05/31/21 17:22 59 L 17 104/35 97 05/31/21 17:20 52 L 12 104/35 97 05/31/21 17:18 60 11 L 104/35 96 05/31/21 17:16 60 16 104/35 95 05/31/21 17:14 62 11 L 127/31 98 05/31/21 17:12 57 L 13 127/31 97 05/31/21 17:10 61 12 127/31 97 05/31/21 17:08 62 20 127/31 92 05/31/21 17:06 61 12 127/31 95 05/31/21 16:00 62 16 99 - Physical Examination General: No Apparent Distress HEENT: Positive: PERRL Neck: Positive: neck supple Cardiac: Positive: Regular Rhythm Lungs: Positive: Decreased Breath Sounds Neuro: Positive: Grossly Intact Abdomen: Positive: Soft Extremities: Absent: edema - Labs and Meds CBC 05/31/21 06/01/21 Range/Units 14:19 04:42 WBC 8.7 (4.5-11.0) K/mm3 RBC 3.03 L (3.65-5.03) M/mm3 Hgb 8.9 L 8.5 L (10.1-14.3) gm/dl Hct 26.8 L 26.0 L (30.3-42.9) % Plt Count 113 L 122 L (140-440) K/mm3 Lymph # (Auto) 1.4 (1.2-5.4) K/mm3 Rich # (Auto) 1.1 H (0.0-0.8) K/mm3 Eos # (Auto) 0.4 (0.0-0.4) K/mm3 Baso # (Auto) 0.0 (0.0-0.1) K/mm3 Comprehensive Metabolic Panel 06/01/21 Range/Units 04:42 Sodium 140 (137-145) mmol/L Potassium 4.2 (3.6-5.0) mmol/L Chloride 104.4 (98-107) mmol/L Carbon Dioxide 24 (22-30) mmol/L BUN 56 H (7-17) mg/dL Creatinine 3.9 H (0.6-1.2) mg/dL Glucose 100 (65-100) mg/dL Calcium 7.3 L (8.4-10.2) mg/dL - Allied health notes Allied health notes reviewed: nursing
[2021-06-01] MEDS ORDERED: PANTOPRAZOLE 40 MG TAB PO SCH (16:30)
--- NOTE | 2021-06-01 19:03 | Gastroenterology Progress Note ---
Assessment and Plan - Patient Problems (1) ESRD on hemodialysis Current Visit: Yes Status: Acute (2) Atrial fibrillation with rapid ventricular response Current Visit: Yes Status: Acute (3) Duodenal ulcer with hemorrhage Current Visit: Yes Status: Acute Plan to address problem: - Continue protonix, and convert to QD dosing. - Avoid all NSAIDs. - If needed, could resume cardiac ASA in 1 week (Friday 06/09). - OK to discharge home tomorrow per our service if labs stable. Subjective Date of service: 06/01/21 Principal diagnosis: Duodenal ulcer Interval history: The patient is improved and tolerating a liquid diet without N/V/abdominal pain. Her melena has resolved. She denies abdominal pain. Objective - Constitutional Vitals: Temp Pulse Resp BP Pulse Ox 98.4 F 63 20 151/42 93 06/01/21 17:10 06/01/21 17:10 06/01/21 17:10 06/01/21 17:10 06/01/21 16:01 General appearance: no acute distress - Neck Neck: supple, normal ROM - Respiratory Respiratory effort: normal Respiratory: bilateral: CTA - Cardiovascular Rhythm: regular Heart Sounds: Present: S1 & S2 - Gastrointestinal General gastrointestinal: Present: soft, non-tender, non-distended - Labs CBC & Chem 7: 06/01/21 04:42 06/01/21 04:42 Labs: Laboratory Results - last 24 hr 06/01/21 06/01/21 04:42 04:42 WBC 8.7 RBC 3.03 L Hgb 8.5 L Hct 26.0 L MCV 86 MCH 28 MCHC 33 RDW 20.7 H Plt Count 122 L Lymph % (Auto) 16.3 [place] % (Auto) 12.6 H Eos % (Auto) 4.5 H Baso % (Auto) 0.3 Lymph # (Auto) 1.4 [place] # (Auto) 1.1 H Eos # (Auto) 0.4 Baso # (Auto) 0.0 Seg Neutrophils % 66.3 Seg Neutrophils # 5.8 Sodium 140 Potassium 4.2 Chloride 104.4 Carbon Dioxide 24 Anion Gap 16 BUN 56 H Creatinine 3.9 H Estimated GFR 11 BUN/Creatinine Ratio 14 Glucose 100 Calcium 7.3 L Phosphorus 4.80 H Magnesium 1.70
[2021-06-01] MEDS: DIGOXIN 0.5 MG/2 ML INJ IV SCH (20:00)
[2021-06-02 08:28] LABS: Basophils % (Auto) 0.2 % (0.0-1.8); Eosinophils # (Auto) 0.2 K/mm3 (0.0-0.4); Eosinophils % (Auto) 2.3 % (0.0-4.3); Hematocrit 27.5 % (30.3-42.9); Hemoglobin 9.1 gm/dl (10.1-14.3); Lymphocytes # (Auto) 0.6 K/mm3 (1.2-5.4); Lymphocytes % (Auto) 6.7 % (13.4-35.0); Mean Corpuscular HGB Conc 33 % (30-34); Mean Corpuscular Volume 86 fl (79-97); Monocytes # (Auto) 1.3 K/mm3 (0.0-0.8); Monocytes % (Auto) 15.1 % (0.0-7.3); Platelet Count 138 K/mm3 (140-440); Red Blood Count 3.18 M/mm3 (3.65-5.03)
--- NOTE | 2021-06-02 08:34 | Progress Note ---
Assessment and Plan Atrial Fibrillation with Rapid Ventricular Rate Hypotension, acute blood loss anemia h/o Hypertension Severe Anemia Thrombocytopenia Melena/ Upper GI Bleeding ESRD on HD- MWF -Continue with therapeutic PPI -Supportive transfusions as clinically indicated, keep HgB >7g/dL -s/p EGD , s/p PRBCs -SCDs for VTE prophylaxis Continue to monitor hemodynamics closely -Clear liquid diet -Maintain sleep-wake cycle, avoid delirium -PT/OT - increase activity as tolerated - Patient not a candidate for Anticoagulation at this time due to severe anemia and possible GIB -Avoid nephrotoxins, adjust all medications for GFR -Supportive HD per Renal service -Fall precautions, mobility, avoid delirium -Discharge planning Subjective Date of service: 06/02/21 Principal diagnosis: Duodenal ulcer Interval history: Seen and examined. Vitals, labs, medications, chart reviewed. No further bleeding, appetite continues to slowly improving, denies any chest pain, no shortness of breath, no fevers or chills. Tolerating HD, Friend is at the bedside visiting Objective - Exam Narrative Exam: General appearance: Present: no acute distress, frail elderly woman - EENT Eyes: PERRL, EOM intact ENT: hearing intact, clear oral mucosa - Neck Neck: supple, normal ROM - Respiratory Respiratory effort: normal Respiratory: bilateral: CTA - Breasts Breasts: deferred - Cardiovascular Rhythm: irregularly irregular Heart Sounds: Present: S1 & S2 Extremities: No edema - Gastrointestinal General gastrointestinal: Present: soft, non-tender Rectal Exam: deferred - Genitourinary Female genitourinary: deferred - Integumentary Integumentary: clear - Neurologic Neurologic: no focal deficits, moves all extremities - Psychiatric Psychiatric: appropriate mood/affect Vital Signs - 12hr 06/01/21 06/01/21 06/01/21 22:00 23:02 23:40 Temperature 98.4 F 98.4 F Pulse Rate 54 L 53 L Pulse Rate [ Radial] Respiratory 16 16 Rate Blood Pressure 144/36 131/47 O2 Sat by Pulse 98 95 Oximetry O2 Sat by Pulse 100 Oximetry [ Bilateral] 06/01/21 06/01/21 06/02/21 23:41 23:45 00:00 Temperature Pulse Rate 53 L 54 L 53 L Pulse Rate [ 61 Radial] Respiratory 15 Rate Blood Pressure 140/51 157/46 144/48 O2 Sat by Pulse 99 Oximetry O2 Sat by Pulse Oximetry [ Bilateral] 06/02/21 06/02/21 06/02/21 00:15 00:30 00:45 Temperature Pulse Rate 52 L 52 L 53 L Pulse Rate [ Radial] Respiratory Rate Blood Pressure 149/41 135/42 138/39 O2 Sat by Pulse Oximetry O2 Sat by Pulse Oximetry [ Bilateral] 06/02/21 06/02/21 06/02/21 01:00 01:15 01:30 Temperature Pulse Rate 54 L 52 L 57 L Pulse Rate [ Radial] Respiratory Rate Blood Pressure 140/44 139/40 143/48 O2 Sat by Pulse Oximetry O2 Sat by Pulse Oximetry [ Bilateral] 06/02/21 06/02/21 06/02/21 01:45 02:00 02:15 Temperature Pulse Rate 53 L 57 L 60 Pulse Rate [ Radial] Respiratory Rate Blood Pressure 152/47 162/49 148/40 O2 Sat by Pulse Oximetry O2 Sat by Pulse Oximetry [ Bilateral] 06/02/21 06/02/21 06/02/21 02:30 02:41 02:47 Temperature 98.0 F Pulse Rate 56 L 92 H 104 H Pulse Rate [ Radial] Respiratory 15 Rate Blood Pressure 142/43 141/53 160/51 O2 Sat by Pulse Oximetry O2 Sat by Pulse 100 Oximetry [ Bilateral] 06/02/21 06/02/21 04:00 04:10 Temperature 98.6 F Pulse Rate 59 L 99 H Pulse Rate [ 61 Radial] Respiratory 15 18 Rate Blood Pressure 118/50 O2 Sat by Pulse 99 96 Oximetry O2 Sat by Pulse Oximetry [ Bilateral] CBC and BMP: 06/05/21 05:05 06/05/21 08:43 ABG, PT/INR, D-dimer: PT/INR, D-dimer PT 18.1 Sec. (12.2-14.9) H 05/29/21 03:57 INR 1.33 (0.87-1.13) H 05/29/21 03:57 Abnormal lab findings: Abnormal Labs 05/29/21 05/29/21 05/29/21 01:16 01:16 01:52 WBC RBC 1.56 L Hgb 5.3 L* Hct 15.9 L* MCV 102 H MCH 34 H RDW Plt Count 131 L Lymph % (Auto) 11.4 L [place] % (Auto) Eos % (Auto) Lymph # (Auto) 0.9 L [place] # (Auto) Seg Neutrophils % 82.9 H Seg Neutrophils # PT INR Potassium Carbon Dioxide 21 L BUN 69 H Creatinine 2.5 H Glucose 112 H Calcium 8.0 L Phosphorus Total Protein 4.8 L Albumin 3.0 L Lipase 73 H Urine WBC (Auto) Crossmatch 05/29/21 05/29/21 05/29/21 03:57 03:57 06:35 WBC RBC Hgb Hct MCV MCH RDW Plt Count Lymph % (Auto) [place] % (Auto) Eos % (Auto) Lymph # (Auto) [place] # (Auto) Seg Neutrophils % Seg Neutrophils # PT 18.1 H INR 1.33 H Potassium Carbon Dioxide BUN Creatinine Glucose Calcium Phosphorus Total Protein Albumin Lipase Urine WBC (Auto) 10.0 H Crossmatch See Detail 05/30/21 05/30/21 05/31/21 03:03 03:03 04:15 WBC 13.0 H RBC 2.05 L 3.42 L Hgb 6.2 L 9.3 L D Hct 18.7 L* 28.2 L D MCV MCH 27 L RDW 17.5 H 20.2 H Plt Count 108 L 101 L Lymph % (Auto) 8.9 L 7.3 L [place] % (Auto) 8.5 H 9.8 H Eos % (Auto) Lymph # (Auto) 0.9 L 1.0 L [place] # (Auto) 0.9 H 1.3 H Seg Neutrophils % 81.6 H 82.0 H Seg Neutrophils # 8.3 H 10.7 H PT INR Potassium 5.2 H Carbon Dioxide 18 L BUN 135 H Creatinine 4.1 H D Glucose 163 H Calcium 7.5 L Phosphorus Total Protein Albumin Lipase Urine WBC (Auto) Crossmatch 05/31/21 05/31/21 06/01/21 04:15 14:19 04:42 WBC RBC 3.03 L Hgb 8.9 L 8.5 L Hct 26.8 L 26.0 L MCV MCH RDW 20.7 H Plt Count 113 L 122 L Lymph % (Auto) [place] % (Auto) 12.6 H Eos % (Auto) 4.5 H Lymph # (Auto) [place] # (Auto) 1.1 H Seg Neutrophils % Seg Neutrophils # PT INR Potassium Carbon Dioxide BUN 46 H Creatinine 2.6 H Glucose 135 H Calcium 7.6 L Phosphorus Total Protein Albumin Lipase Urine WBC (Auto) Crossmatch 06/01/21 06/02/21 04:42 07:24 WBC RBC Hgb Hct MCV MCH RDW Plt Count Lymph % (Auto) [place] % (Auto) 15.1 H Eos % (Auto) Lymph # (Auto) [place] # (Auto) 1.3 H Seg Neutrophils % 75.7 H Seg Neutrophils # PT INR Potassium Carbon Dioxide BUN 56 H Creatinine 3.9 H Glucose Calcium 7.3 L Phosphorus 4.80 H Total Protein Albumin Lipase Urine WBC (Auto) Crossmatch Allied health notes reviewed: nursing
[2021-06-02 08:35] LABS: Red Cell Distribution Width 20.2 % (13.2-15.2)
[2021-06-02] MEDS: MIDODRINE 5 MG TAB PO SCH ×3 (08:56→17:16)
[2021-06-02 08:57] LABS: Calcium 6.9 mg/dL (8.4-10.2)
[2021-06-02] MEDS: ACETAMINOPHEN 325 MG TAB PO PRN ×3 (09:02→21:20)
[2021-06-02] MEDS: PANTOPRAZOLE 40 MG TAB PO SCH (09:02)
[2021-06-02] MEDS: AMIODARONE 200 MG TAB PO SCH ×2 (13:55→21:14)
--- NOTE | 2021-06-02 15:03 | Progress Note ---
Subjective Date of service: 06/02/21 Principal diagnosis: ABLA Interval history: Assessment and plan: This is a 80-year-old female with known past medical history of HTN, ESRD on HD initially admitted to floor for severe anemia 2/2 of possible GIB. Patient was transferred in the ICU on 05/30 due to new onset atrial fibrillation, HR sustaining in the 140s. Hospital Course to Date: 05/30/2021- patient went into A. fib with rapid ventricular rate, cardiology consulted. Started amiodarone drip, transfer to ICU for close observation . Unable to start anticoagulation due to severe anemia and GI bleeding.. Endoscopy rescheduled for tomorrow Continue to monitor in ICU 05/31: S/p EGD this am, duodenal bulb ulcer noted which was clipped and bx, otherwise unremarkable EGD per GI. Patient is hypotensive this am post procedure, probably related to sedation vs hypovolemia. S/p 250mg of NS bolus with some improvement, and PO midodrine added. Amiodorone gtt is on hold this am due to bradycardia and hypotension. SR with a HR in the low 50s noted on the monitor, 12lead EKg ordered to confirm conversion. Patient's H&H is stable this am, GI recommendations noted. Patient is tolerating clear liquid diet, continue PPI, and trend H&H Q8hr, transfuse if hgb is less than 7. 06/01: Remains stable, on RA. SB noted on the monitor with wide pulse pressure. No s/s of any active bleeding overnight, H&H remains stable. D/w Cardio patient is stable for transfer to Telemetry. Plan for HD today. Continue PRN analgesia for pain management, PT eval and treat pending. 06/02 patient is awake and alert. Eating poorly. Status post PRBC transfusion. GI and cardiology notes reviewed. Family in the room. PT evaluation is pending Assessment and Plan #Atrial Fibrillation with Rapid Ventricular Rate - Went into Afib with RVR on the floor, HR as high as 140s - Unclear if patient has a history, most likely new onset - Cardiology on consult, appreciated recommendations - s/p Amiodorone gtt - 05/31 Coverted to Sinus, EKG confirmed SB - Continue PRN IV metoprolol for HR greater than 120 - Patient not a candidate for Anticoagulation at this time due to severe anemia and possible GIB -Reviewed cardiology note Due to persistent bradycardia, AV yasmin blockers have been discontinued - CCM is also consulted, appreciate recommendations #Hypotension-improved - probably 2/2 hypovolemia vs sedation post EGD procedure - Wide pulse pressure, patient is asymptomatic - Continue Midodrine - Continue to trend H&H, transfuse if hbg less than 7 - Continue blood pressure monitor per protocol - Maintain SBP less than 160 #Severe Anemia H&H stable posttransfusion #Thrombocytopenia #Melena #Status post EGD - Presented with Hgb of 5.3 and Hct of 15.9 - Stool guaiac is positive in the ED - s/p 2units of PRBCs - GI consulted, appreciate recommendations - 05/31 s/p EGD with endoscopic clipping which revealed 1cm Duodenal bulb ulcer (clipped x 2), Cold bx antrum for H pylori. Normal stomach and esophagus - No s/s of any active bleeding - H&H remains stable - Continue PPI- Protonix BID - On Full liquid diet, advance as tolerated - Will continue to trend CBC - Transfuse if Hgb is less than 7 -Resume aspirin on 06/09 per review of GI note #ESRD on HD- MWF - Patient is anuric - Nephrology on consult, appreciated recommendation - Continue HD per Nephro - Strict intake and output - Avoid nephrotoxic medications; Renally dose medications - Monitor and replace electrolytes as needed #GI/DVT Prophylaxis - PPI- IV protonix - SCD for DVT prophylaxis. Objective - Constitutional Vitals: Vital Signs - 12hr 06/02/21 06/02/21 06/02/21 04:00 04:10 08:55 Temperature 98.6 F 98.6 F Pulse Rate 59 L 99 H 132 H Pulse Rate [ 61 Radial] Respiratory 15 18 18 Rate Blood Pressure 118/50 136/71 Blood Pressure [Right] O2 Sat by Pulse 99 96 95 Oximetry 06/02/21 06/02/21 12:47 13:56 Temperature 98.8 F Pulse Rate 136 H 100 H Pulse Rate [ Radial] Respiratory 16 Rate Blood Pressure Blood Pressure 99/52 99/46 [Right] O2 Sat by Pulse 97 Oximetry General appearance: Present: no acute distress - EENT Eyes: PERRL, EOM intact ENT: hearing intact, clear oral mucosa - Neck Neck: supple, normal ROM - Respiratory Respiratory effort: normal Respiratory: bilateral: CTA - Breasts Breasts: deferred - Cardiovascular Rhythm: irregularly irregular Heart Sounds: Present: S1 & S2 Extremities: No edema - Gastrointestinal General gastrointestinal: Present: soft, non-tender Rectal Exam: deferred - Genitourinary Female genitourinary: deferred - Integumentary Integumentary: clear - Neurologic Neurologic: no focal deficits, moves all extremities - Psychiatric Psychiatric: appropriate mood/affect - Labs CBC & Chem 7: 06/02/21 07:24 06/02/21 07:24 Labs: Abnormal lab results 05/29/21 06/02/21 06/02/21 Range/Units 03:57 07:24 07:24 RBC 3.18 L (3.65-5.03) M/mm3 Hgb 9.1 L (10.1-14.3) gm/dl Hct 27.5 L (30.3-42.9) % RDW 20.2 H (13.2-15.2) % Plt Count 138 L (140-440) K/mm3 Lymph % (Auto) 6.7 L (13.4-35.0) % [place] % (Auto) 15.1 H (0.0-7.3) % Lymph # (Auto) 0.6 L (1.2-5.4) K/mm3 [place] # (Auto) 1.3 H (0.0-0.8) K/mm3 Seg Neutrophils % 75.7 H (40.0-70.0) % BUN 21 H (7-17) mg/dL Creatinine 2.3 H (0.6-1.2) mg/dL Glucose 102 H (65-100) mg/dL Calcium 6.9 L (8.4-10.2) mg/dL Crossmatch See Detail
--- NOTE | 2021-06-02 18:10 | Progress Note ---
Assessment and Plan - Patient Problems (1) Atrial fibrillation with rapid ventricular response Current Visit: Yes Status: Acute Plan to address problem: 80-year-old woman admitted with severe anemia, hematocrit of 15, suspected GI bleeding. With blood transfusions and further management, anemia is now stable, hematocrit today is 27. Hospital course has been notable for paroxysmal atrial fibrillation, which has been managed with medical therapy. We will resume amiodarone therapy at this time for better suppression of atrial fibrillation. Judicious use of amiodarone and other AV yasmin blocking agents. Due to the presentation with severe anemia, patient is not a candidate for anticoagulation now or in the near term. Subjective Date of service: 06/02/21 Principal diagnosis: Anemia Interval history: Patient is currently back on the medical floor, today, has reverted again to atrial fibrillation, currently with a ventricular rate in the 90s to 100s. She is asymptomatic. Objective Vital Signs Temp Pulse Pulse Resp BP BP Pulse Ox 06/02/21 16:00 93 H 06/02/21 15:48 98.8 F 103 H 18 170/107 98 06/02/21 14:55 98.4 F 116 H 16 120/58 95 06/02/21 13:56 100 H 91/46 99/46 06/02/21 12:47 98.8 F 136 H 16 99/52 97 06/02/21 12:25 98.8 F 136 H 18 99/52 91 06/02/21 12:00 103 H 06/02/21 08:55 98.6 F 132 H 18 136/71 95 06/02/21 08:00 119 H 116 H 16 94 06/02/21 04:10 98.6 F 99 H 18 118/50 96 06/02/21 04:00 59 L 61 15 99 06/02/21 02:47 98.0 F 104 H 15 160/51 06/02/21 02:41 92 H 141/53 06/02/21 02:30 56 L 142/43 06/02/21 02:15 60 148/40 06/02/21 02:00 57 L 162/49 06/02/21 01:45 53 L 152/47 06/02/21 01:30 57 L 143/48 06/02/21 01:15 52 L 139/40 06/02/21 01:00 54 L 140/44 06/02/21 00:45 53 L 138/39 06/02/21 00:30 52 L 135/42 06/02/21 00:15 52 L 149/41 06/02/21 00:00 53 L 61 15 144/48 99 06/01/21 23:45 54 L 157/46 06/01/21 23:41 53 L 140/51 06/01/21 23:40 98.4 F 53 L 16 131/47 06/01/21 23:02 98.4 F 54 L 16 144/36 95 06/01/21 22:00 98 06/01/21 20:08 98.8 F 53 L 17 140/38 93 06/01/21 20:00 61 15 99 Pulse Ox 06/02/21 16:00 06/02/21 15:48 06/02/21 14:55 06/02/21 13:56 06/02/21 12:47 06/02/21 12:25 06/02/21 12:00 06/02/21 08:55 06/02/21 08:00 06/02/21 04:10 06/02/21 04:00 06/02/21 02:47 100 06/02/21 02:41 06/02/21 02:30 06/02/21 02:15 06/02/21 02:00 06/02/21 01:45 06/02/21 01:30 06/02/21 01:15 06/02/21 01:00 06/02/21 00:45 06/02/21 00:30 06/02/21 00:15 06/02/21 00:00 06/01/21 23:45 06/01/21 23:41 06/01/21 23:40 100 06/01/21 23:02 06/01/21 22:00 06/01/21 20:08 06/01/21 20:00 - Physical Examination General: No Apparent Distress HEENT: Positive: PERRL Neck: Positive: neck supple Cardiac: Positive: irregularly irregular Lungs: Positive: Decreased Breath Sounds Neuro: Positive: Grossly Intact Abdomen: Positive: Soft Extremities: Absent: edema - Labs and Meds CBC 06/02/21 Range/Units 07:24 WBC 8.4 (4.5-11.0) K/mm3 RBC 3.18 L (3.65-5.03) M/mm3 Hgb 9.1 L (10.1-14.3) gm/dl Hct 27.5 L (30.3-42.9) % Plt Count 138 L (140-440) K/mm3 Lymph # (Auto) 0.6 L (1.2-5.4) K/mm3 [place] # (Auto) 1.3 H (0.0-0.8) K/mm3 Eos # (Auto) 0.2 (0.0-0.4) K/mm3 Baso # (Auto) 0.0 (0.0-0.1) K/mm3 Comprehensive Metabolic Panel 06/02/21 Range/Units 07:24 Sodium 138 (137-145) mmol/L Potassium 3.6 (3.6-5.0) mmol/L Chloride 100.9 (98-107) mmol/L Carbon Dioxide 24 (22-30) mmol/L BUN 21 H (7-17) mg/dL Creatinine 2.3 H (0.6-1.2) mg/dL Glucose 102 H (65-100) mg/dL Calcium 6.9 L (8.4-10.2) mg/dL - Allied health notes Allied health notes reviewed: nursing
--- NOTE | 2021-06-02 18:52 | Gastroenterology Progress Note ---
Assessment and Plan - Patient Problems (1) ESRD on hemodialysis Current Visit: Yes Status: Acute (2) Atrial fibrillation with rapid ventricular response Current Visit: Yes Status: Acute (3) Duodenal ulcer with hemorrhage Current Visit: Yes Status: Acute Plan to address problem: - Continue protonix, and convert to QD dosing. - Avoid all NSAIDs. - If needed, could resume cardiac ASA in 1 week (Friday 06/09). - OK to discharge home tomorrow per our service if labs stable. - We will sign off; please call if needed. Subjective Date of service: 06/02/21 Principal diagnosis: DU with hemorrhage Interval history: The patient has no N/V/abdominal pain/melena. Objective - Constitutional Vitals: Temp Pulse Resp BP Pulse Ox 98.8 F 93 H 18 170/107 98 06/02/21 15:48 06/02/21 16:00 06/02/21 15:48 06/02/21 15:48 06/02/21 15:48 General appearance: no acute distress - Respiratory Respiratory effort: normal Respiratory: bilateral: CTA - Cardiovascular Rhythm: regular Heart Sounds: Present: S1 & S2 - Gastrointestinal General gastrointestinal: Present: soft, non-tender, non-distended - Labs CBC & Chem 7: 06/02/21 07:24 06/02/21 07:24 Labs: Laboratory Results - last 24 hr 05/29/21 05/30/21 06/02/21 03:57 03:03 07:24 WBC 8.4 RBC 3.18 L Hgb 9.1 L Hct 27.5 L MCV 86 MCH 29 MCHC 33 RDW 20.2 H Plt Count 138 L Lymph % (Auto) 6.7 L [place] % (Auto) 15.1 H Eos % (Auto) 2.3 Baso % (Auto) 0.2 Lymph # (Auto) 0.6 L [place] # (Auto) 1.3 H Eos # (Auto) 0.2 Baso # (Auto) 0.0 Seg Neutrophils % 75.7 H Seg Neutrophils # 6.3 Sodium Potassium Chloride Carbon Dioxide Anion Gap BUN Creatinine Estimated GFR BUN/Creatinine Ratio Glucose Calcium Hepatitis A IgM Ab Nonreactive Crossmatch See Detail 06/02/21 07:24 WBC RBC Hgb Hct MCV MCH MCHC RDW Plt Count Lymph % (Auto) [place] % (Auto) Eos % (Auto) Baso % (Auto) Lymph # (Auto) [place] # (Auto) Eos # (Auto) Baso # (Auto) Seg Neutrophils % Seg Neutrophils # Sodium 138 Potassium 3.6 Chloride 100.9 Carbon Dioxide 24 Anion Gap 17 BUN 21 H Creatinine 2.3 H Estimated GFR 20 BUN/Creatinine Ratio 9 Glucose 102 H Calcium 6.9 L Hepatitis A IgM Ab Crossmatch
--- NOTE | 2021-06-02 19:45 | Electrocardiograph Report ---
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
--- NOTE | 2021-06-02 19:59 | Electrocardiograph Report ---
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
[2021-06-03 06:21] LABS: Basophils % (Auto) 0.5 % (0.0-1.8); Eosinophils # (Auto) 0.4 K/mm3 (0.0-0.4); Eosinophils % (Auto) 6.8 % (0.0-4.3); Hematocrit 25.7 % (30.3-42.9); Hemoglobin 8.6 gm/dl (10.1-14.3); Lymphocytes % (Auto) 15.5 % (13.4-35.0); Mean Corpuscular HGB Conc 34 % (30-34); Mean Corpuscular Volume 87 fl (79-97); Monocytes % (Auto) 15.6 % (0.0-7.3); Platelet Count 162 K/mm3 (140-440); Red Blood Count 2.97 M/mm3 (3.65-5.03)
[2021-06-03 06:25] LABS: Red Cell Distribution Width 20.5 % (13.2-15.2)
[2021-06-03 07:18] LABS: Calcium 6.7 mg/dL (8.4-10.2)
--- NOTE | 2021-06-03 07:59 | Progress Note ---
Assessment and Plan Assessment * End stage renal disease (Outpatient HD at [facility]) * Symptomatic anemia of ABL * GI bleed --EGD: Duodenal ulcer (May 31) * Atrial fibrillation with RVR * Azotemia - multifactorial, 2/2 GI bleed vs ESRD * Hypertension * Secondary hyperparathyroidism Plan: * Patient is s/p HD yesterday. No acute need for HD today * Continue MWF schedule -UF a tolerated * Transfuse pRBC prn * GI recommendations noted * Rate control per cardiology * Epogen prn * AM labs * Dose medications for renal function Subjective Date of service: 06/02/21 Principal diagnosis: DU with hemorrhage Interval history: Patient has no complaints today with exception of ankle pain Objective - Vital Signs Vital signs: Vital Signs - 12hr 06/02/21 06/02/21 06/03/21 20:00 22:00 00:00 Temperature 98.6 F Pulse Rate 92 H 54 L Pulse Rate [ 116 H Radial] Respiratory 16 16 Rate Blood Pressure 125/34 O2 Sat by Pulse 94 99 Oximetry 06/03/21 06/03/21 03:40 04:00 Temperature 97.6 F Pulse Rate 51 L 52 L Pulse Rate [ Radial] Respiratory 16 Rate Blood Pressure 122/39 O2 Sat by Pulse 96 Oximetry - General Appearance General appearance: well-developed, well-nourished EENT: ATNC Respiratory: Present: Clear to Ascultation Cardiology: regular, S1S2 Gastrointestinal: normal, no tenderness, no distended Integumentary: no rash, warm and dry Neurologic: alert and oriented x3 Psychiatric: cooperative - Lab 06/03/21 05:49 06/03/21 05:49 Most recent lab results Calcium 6.7 mg/dL (8.4-10.2) L 06/03/21 05:49 Phosphorus 4.80 mg/dL (2.5-4.5) H 06/01/21 04:42 Magnesium 1.70 mg/dL (1.7-2.3) 06/01/21 04:42 Medications & Allergies - Medications Allergies/Adverse Reactions: Allergies celecoxib [From Celebrex] Allergy (Verified 05/30/21 12:42) FACE SWELLING sulfamethoxazole [From Bactrim] Allergy (Verified 05/30/21 12:42) Swelling trimethoprim [From Bactrim] Allergy (Verified 05/30/21 12:42) Swelling Active Medications: Generic Name Dose Route Start Last Admin Trade Name Freq PRN Reason Stop Dose Admin Acetaminophen 650 mg 05/29/21 05:28 06/02/21 21:20 Acetaminophen 325 Mg Tab PO 650 mg Q4H PRN Administration Pain MILD(1-3)/Fever >100.5/LOVE Albumin Human 25 gm 05/29/21 16:05 Albumin Human 25% (25 Gm/100 Ml) Inj IV ASHLEY PRN Hypotension Amiodarone HCl 200 mg 06/02/21 14:00 06/02/21 21:14 Amiodarone 200 Mg Tab PO 06/03/21 22:01 200 mg BID ELAINE Administration Amiodarone HCl 100 mg 06/04/21 10:00 Amiodarone 200 Mg Tab PO QDAY [facility] Epoetin Salas-epbx 20,000 unit 05/29/21 16:05 05/30/21 22:38 Epoetin Salas-Epbx 20,000 Unit/1 Ml Vial IV 20,000 unit ASHLEY PRN Administration hemodialysis Hydrocortisone Acetate 1 applic 05/30/21 14:00 Hydrocortisone 1% Cream 28.4gm TP Q8H PRN Skin Irritation Sodium Chloride 100 mls @ 999 mls/hr 06/01/21 10:00 Nacl 0.9% IV ASHLEY PRN Hypotension Metoprolol Tartrate 2.5 mg 05/30/21 16:00 Metoprolol Tartrate 5 Mg/5 Ml Inj IV Q6HR PRN HR >120 Midodrine 5 mg 06/01/21 12:00 06/02/21 17:16 Midodrine 5 Mg Tab PO Not Given TID@0800,1200,1600 [facility] Morphine Sulfate 2 mg 05/29/21 05:28 06/01/21 10:52 Morphine 2 Mg/1 Ml Inj IV 2 mg Q4H PRN Administration Pain, Moderate (4-6) Ondansetron HCl 4 mg 05/29/21 05:28 06/01/21 17:15 Ondansetron 4 Mg/2 Ml Inj IV 4 mg Q8H PRN Administration Nausea And Vomiting Pantoprazole Sodium 40 mg 06/02/21 10:00 06/02/21 09:02 Pantoprazole 40 Mg Tab PO 40 mg DAILY ELAINE Administration Sodium Chloride 10 ml 05/29/21 10:00 06/02/21 21:14 Sodium Chloride 0.9% 10 Ml Flush Syringe IV 10 ml BID ELAINE Administration Sodium Chloride 10 ml 05/29/21 05:28 Sodium Chloride 0.9% 10 Ml Flush Syringe IV PRN PRN LINE FLUSH
--- NOTE | 2021-06-03 08:01 | Progress Note ---
Assessment and Plan Assessment * End stage renal disease (Outpatient HD at [facility]) * Symptomatic anemia of ABL * GI bleed --EGD: Duodenal ulcer (May 31) * Atrial fibrillation with RVR * Azotemia - multifactorial, 2/2 GI bleed vs ESRD * Hypertension * Secondary hyperparathyroidism Plan: * HD today * Continue MWF schedule -UF a tolerated * Transfuse pRBC prn * GI recommendations noted * Rate control per cardiology * Epogen prn * AM labs * Dose medications for renal function Subjective Date of service: 06/03/21 Principal diagnosis: DU with hemorrhage Interval history: Patient has no complaints today Objective - Vital Signs Vital signs: Vital Signs - 12hr 06/02/21 06/02/21 06/03/21 20:00 22:00 00:00 Temperature 98.6 F Pulse Rate 92 H 54 L Pulse Rate [ 116 H Radial] Respiratory 16 16 Rate Blood Pressure 125/34 O2 Sat by Pulse 94 99 Oximetry 06/03/21 06/03/21 03:40 04:00 Temperature 97.6 F Pulse Rate 51 L 52 L Pulse Rate [ Radial] Respiratory 16 Rate Blood Pressure 122/39 O2 Sat by Pulse 96 Oximetry - General Appearance General appearance: well-developed, well-nourished EENT: ATNC Respiratory: Present: Clear to Ascultation Cardiology: regular, S1S2 Gastrointestinal: normal, no tenderness, no distended Integumentary: no rash, warm and dry Neurologic: alert and oriented x3 Psychiatric: cooperative - Lab 06/03/21 05:49 06/03/21 05:49 Most recent lab results Calcium 6.7 mg/dL (8.4-10.2) L 06/03/21 05:49 Phosphorus 4.80 mg/dL (2.5-4.5) H 06/01/21 04:42 Magnesium 1.70 mg/dL (1.7-2.3) 06/01/21 04:42 Medications & Allergies - Medications Allergies/Adverse Reactions: Allergies celecoxib [From Celebrex] Allergy (Verified 05/30/21 12:42) FACE SWELLING sulfamethoxazole [From Bactrim] Allergy (Verified 05/30/21 12:42) Swelling trimethoprim [From Bactrim] Allergy (Verified 05/30/21 12:42) Swelling Active Medications: Generic Name Dose Route Start Last Admin Trade Name Freq PRN Reason Stop Dose Admin Acetaminophen 650 mg 05/29/21 05:28 06/02/21 21:20 Acetaminophen 325 Mg Tab PO 650 mg Q4H PRN Administration Pain MILD(1-3)/Fever >100.5/LOVE Albumin Human 25 gm 05/29/21 16:05 Albumin Human 25% (25 Gm/100 Ml) Inj IV ASHLEY PRN Hypotension Amiodarone HCl 200 mg 06/02/21 14:00 06/02/21 21:14 Amiodarone 200 Mg Tab PO 06/03/21 22:01 200 mg BID ELAINE Administration Amiodarone HCl 100 mg 06/04/21 10:00 Amiodarone 200 Mg Tab PO QDAY ELAINE Epoetin Salas-epbx 20,000 unit 05/29/21 16:05 05/30/21 22:38 Epoetin Salas-Epbx 20,000 Unit/1 Ml Vial IV 20,000 unit ASHLEY PRN Administration hemodialysis Hydrocortisone Acetate 1 applic 05/30/21 14:00 Hydrocortisone 1% Cream 28.4gm TP Q8H PRN Skin Irritation Sodium Chloride 100 mls @ 999 mls/hr 06/01/21 10:00 Nacl 0.9% IV ASHLEY PRN Hypotension Metoprolol Tartrate 2.5 mg 05/30/21 16:00 Metoprolol Tartrate 5 Mg/5 Ml Inj IV Q6HR PRN HR >120 Midodrine 5 mg 06/01/21 12:00 06/02/21 17:16 Midodrine 5 Mg Tab PO Not Given TID@0800,1200,1600 [facility] Morphine Sulfate 2 mg 05/29/21 05:28 06/01/21 10:52 Morphine 2 Mg/1 Ml Inj IV 2 mg Q4H PRN Administration Pain, Moderate (4-6) Ondansetron HCl 4 mg 05/29/21 05:28 06/01/21 17:15 Ondansetron 4 Mg/2 Ml Inj IV 4 mg Q8H PRN Administration Nausea And Vomiting Pantoprazole Sodium 40 mg 06/02/21 10:00 06/02/21 09:02 Pantoprazole 40 Mg Tab PO 40 mg DAILY ELAINE Administration Sodium Chloride 10 ml 05/29/21 10:00 06/02/21 21:14 Sodium Chloride 0.9% 10 Ml Flush Syringe IV 10 ml BID ELAINE Administration Sodium Chloride 10 ml 05/29/21 05:28 Sodium Chloride 0.9% 10 Ml Flush Syringe IV PRN PRN LINE FLUSH
[2021-06-03] MEDS: MIDODRINE 5 MG TAB PO SCH ×3 (09:36→17:00)
[2021-06-03] MEDS: PANTOPRAZOLE 40 MG TAB PO SCH (09:36)
[2021-06-03] MEDS: AMIODARONE 200 MG TAB PO SCH ×2 (09:36→21:28)
[2021-06-03] MEDS: ACETAMINOPHEN 325 MG TAB PO PRN ×3 (09:39→23:49)
--- NOTE | 2021-06-03 13:29 | Progress Note ---
Assessment and Plan - Patient Problems (1) Atrial fibrillation with rapid ventricular response Current Visit: Yes Status: Acute Plan to address problem: 80-year-old woman admitted with severe anemia, hematocrit of 15, suspected GI bleeding. With blood transfusions and further management, anemia is now stable, hematocrit today is 27. Hospital course has been notable for paroxysmal atrial fibrillation, which has been managed with medical therapy. Continue judicious use of amiodarone for atrial fibrillation suppression. Due to the presentation with severe anemia, patient is not a candidate for anticoagulation now or in the near term. Subjective Date of service: 06/03/21 Principal diagnosis: DU with hemorrhage Interval history: Patient is comfortable today, has returned to stable sinus rhythm. She is asymptomatic, looks and feels well. Objective Vital Signs Temp Pulse Pulse Resp BP BP Pulse Ox 06/03/21 10:00 60 96 06/03/21 08:18 98.2 F 62 134/37 99 06/03/21 04:00 52 L 06/03/21 03:40 97.6 F 51 L 16 122/39 96 06/03/21 00:00 98.6 F 54 L 16 125/34 99 06/02/21 22:00 116 H 16 94 06/02/21 20:00 92 H 06/02/21 19:26 98.8 F 54 L 16 103/27 96 06/02/21 16:00 93 H 06/02/21 15:48 98.8 F 103 H 18 170/107 98 06/02/21 14:55 98.4 F 116 H 16 120/58 95 06/02/21 13:56 100 H 91/46 99/46 - Physical Examination General: No Apparent Distress HEENT: Positive: PERRL Neck: Positive: neck supple Cardiac: Positive: Reg Rate and Rhythm Lungs: Positive: Decreased Breath Sounds Neuro: Positive: Grossly Intact Abdomen: Positive: Soft Extremities: Absent: edema - Labs and Meds CBC 06/03/21 Range/Units 05:49 WBC 6.4 (4.5-11.0) K/mm3 RBC 2.97 L (3.65-5.03) M/mm3 Hgb 8.6 L (10.1-14.3) gm/dl Hct 25.7 L (30.3-42.9) % Plt Count 162 (140-440) K/mm3 Lymph # (Auto) 1.0 L (1.2-5.4) K/mm3 [place] # (Auto) 1.0 H (0.0-0.8) K/mm3 Eos # (Auto) 0.4 (0.0-0.4) K/mm3 Baso # (Auto) 0.0 (0.0-0.1) K/mm3 Comprehensive Metabolic Panel 06/03/21 Range/Units 05:49 Sodium 139 (137-145) mmol/L Potassium 4.0 (3.6-5.0) mmol/L Chloride 102.3 (98-107) mmol/L Carbon Dioxide 25 (22-30) mmol/L BUN 41 H (7-17) mg/dL Creatinine 4.1 H D (0.6-1.2) mg/dL Glucose 96 (65-100) mg/dL Calcium 6.7 L (8.4-10.2) mg/dL - Allied health notes Allied health notes reviewed: nursing
--- NOTE | 2021-06-03 14:13 | Progress Note ---
Assessment and Plan Atrial Fibrillation with Rapid Ventricular Rate Hypotension, acute blood loss anemia h/o Hypertension Severe Anemia Thrombocytopenia Melena/ Upper GI Bleeding ESRD on HD- MWF -Continue with therapeutic PPI -Supportive transfusions as clinically indicated, keep HgB >7g/dL -s/p EGD , s/p PRBCs -SCDs for VTE prophylaxis Continue to monitor hemodynamics closely -Clear liquid diet -Maintain sleep-wake cycle, avoid delirium -PT/OT - increase activity as tolerated - Patient not a candidate for Anticoagulation at this time due to severe anemia and possible GIB -Avoid nephrotoxins, adjust all medications for GFR -Supportive HD per Renal service -Fall precautions, mobility, avoid delirium -Pain management Subjective Date of service: 06/03/21 Principal diagnosis: DU with hemorrhage Interval history: Seen and examined. Vitals, labs, medications, chart reviewed. No further bleeding, appetite continues to slowly improving, denies any chest pain, no shortness of breath, no fevers or chills. Tolerating HD, she states there are plans to discharge her tomorrow with home health Complains of pain in her left knee Friend is at the bedside visiting Objective - Exam Narrative Exam: General appearance: Present: no acute distress, frail elderly woman - EENT Eyes: PERRL, EOM intact ENT: hearing intact, clear oral mucosa - Neck Neck: supple, normal ROM - Respiratory Respiratory effort: normal Respiratory: bilateral: CTA - Breasts Breasts: deferred - Cardiovascular Rhythm: irregularly irregular Heart Sounds: Present: S1 & S2 Extremities: No edema - Gastrointestinal General gastrointestinal: Present: soft, non-tender Rectal Exam: deferred - Genitourinary Female genitourinary: deferred - Integumentary Integumentary: clear - Neurologic Neurologic: no focal deficits, moves all extremities - Psychiatric Psychiatric: appropriate mood/affect Vital Signs - 12hr 06/03/21 06/03/21 06/03/21 03:40 04:00 08:18 Temperature 97.6 F 98.2 F Pulse Rate 51 L 52 L 62 Pulse Rate [ Radial] Respiratory 16 Rate Blood Pressure 122/39 134/37 O2 Sat by Pulse 96 99 Oximetry 06/03/21 10:00 Temperature Pulse Rate Pulse Rate [ 60 Radial] Respiratory Rate Blood Pressure O2 Sat by Pulse 96 Oximetry CBC and BMP: 06/05/21 05:05 06/05/21 08:43 ABG, PT/INR, D-dimer: PT/INR, D-dimer PT 18.1 Sec. (12.2-14.9) H 05/29/21 03:57 INR 1.33 (0.87-1.13) H 05/29/21 03:57 Abnormal lab findings: Abnormal Labs 05/29/21 05/29/21 05/29/21 01:16 01:16 01:52 WBC RBC 1.56 L Hgb 5.3 L* Hct 15.9 L* MCV 102 H MCH 34 H RDW Plt Count 131 L Lymph % (Auto) 11.4 L [place] % (Auto) Eos % (Auto) Lymph # (Auto) 0.9 L [place] # (Auto) Seg Neutrophils % 82.9 H Seg Neutrophils # PT INR Potassium Carbon Dioxide 21 L BUN 69 H Creatinine 2.5 H Glucose 112 H Calcium 8.0 L Phosphorus Total Protein 4.8 L Albumin 3.0 L Lipase 73 H Urine WBC (Auto) Crossmatch 05/29/21 05/29/21 05/29/21 03:57 03:57 06:35 WBC RBC Hgb Hct MCV MCH RDW Plt Count Lymph % (Auto) [place] % (Auto) Eos % (Auto) Lymph # (Auto) [place] # (Auto) Seg Neutrophils % Seg Neutrophils # PT 18.1 H INR 1.33 H Potassium Carbon Dioxide BUN Creatinine Glucose Calcium Phosphorus Total Protein Albumin Lipase Urine WBC (Auto) 10.0 H Crossmatch See Detail 05/30/21 05/30/21 05/31/21 03:03 03:03 04:15 WBC 13.0 H RBC 2.05 L 3.42 L Hgb 6.2 L 9.3 L D Hct 18.7 L* 28.2 L D MCV MCH 27 L RDW 17.5 H 20.2 H Plt Count 108 L 101 L Lymph % (Auto) 8.9 L 7.3 L [place] % (Auto) 8.5 H 9.8 H Eos % (Auto) Lymph # (Auto) 0.9 L 1.0 L [place] # (Auto) 0.9 H 1.3 H Seg Neutrophils % 81.6 H 82.0 H Seg Neutrophils # 8.3 H 10.7 H PT INR Potassium 5.2 H Carbon Dioxide 18 L BUN 135 H Creatinine 4.1 H D Glucose 163 H Calcium 7.5 L Phosphorus Total Protein Albumin Lipase Urine WBC (Auto) Crossmatch 05/31/21 05/31/21 06/01/21 04:15 14:19 04:42 WBC RBC 3.03 L Hgb 8.9 L 8.5 L Hct 26.8 L 26.0 L MCV MCH RDW 20.7 H Plt Count 113 L 122 L Lymph % (Auto) [place] % (Auto) 12.6 H Eos % (Auto) 4.5 H Lymph # (Auto) [place] # (Auto) 1.1 H Seg Neutrophils % Seg Neutrophils # PT INR Potassium Carbon Dioxide BUN 46 H Creatinine 2.6 H Glucose 135 H Calcium 7.6 L Phosphorus Total Protein Albumin Lipase Urine WBC (Auto) Crossmatch 06/01/21 06/02/21 06/02/21 04:42 07:24 07:24 WBC RBC 3.18 L Hgb 9.1 L Hct 27.5 L MCV MCH RDW 20.2 H Plt Count 138 L Lymph % (Auto) 6.7 L [place] % (Auto) 15.1 H Eos % (Auto) Lymph # (Auto) 0.6 L [place] # (Auto) 1.3 H Seg Neutrophils % 75.7 H Seg Neutrophils # PT INR Potassium Carbon Dioxide BUN 56 H 21 H Creatinine 3.9 H 2.3 H Glucose 102 H Calcium 7.3 L 6.9 L Phosphorus 4.80 H Total Protein Albumin Lipase Urine WBC (Auto) Crossmatch 06/03/21 06/03/21 05:49 05:49 WBC RBC 2.97 L Hgb 8.6 L Hct 25.7 L MCV MCH RDW 20.5 H Plt Count Lymph % (Auto) [place] % (Auto) 15.6 H Eos % (Auto) 6.8 H Lymph # (Auto) 1.0 L [place] # (Auto) 1.0 H Seg Neutrophils % Seg Neutrophils # PT INR Potassium Carbon Dioxide BUN 41 H Creatinine 4.1 H D Glucose Calcium 6.7 L Phosphorus Total Protein Albumin Lipase Urine WBC (Auto) Crossmatch Allied health notes reviewed: nursing
[2021-06-03] MEDS: EPOETIN ALFA-EPBX 20,000 UNIT/1 ML VIAL IV PRN (15:00)
--- NOTE | 2021-06-03 15:25 | Discharge Summary ---
Providers - Providers Date of Admission: 05/29/21 05:28 Date of discharge: 06/03/21 Attending physician: SHANIA CARRERA 05/29/21 05:28 Consult to Physician [CONS] Routine Comment: Consulting Provider: STEPHY GUTIÉRREZ Physician Instructions: Reason For Exam: gib 05/29/21 06:01 Consult to Physician [CONS] Routine Comment: Consulting Provider: LYNNETTE COTTRELL Physician Instructions: Reason For Exam: esrd 05/29/21 11:08 Consult to Physician [CONS] Routine Comment: Consulting Provider: SOLE CHIRINOS Physician Instructions: Reason For Exam: ESRD 05/30/21 08:53 Consult to Physician [CONS] Routine Comment: paged overhead and called office/martha Consulting Provider: LORETTA SCHROEDER Physician Instructions: Reason For Exam: A. fib with rapid ventricular rate 05/30/21 09:47 Consult to Physician [CONS] Routine Comment: DR conroy/ martha Consulting Provider: JORGE LUIS SANDS Physician Instructions: Reason For Exam: A. fib RVR/critical care consult 05/31/21 19:14 Physical Therapy Evaluation and Treat [CONS] Routine Comment: Reason For Exam: Strengthening and Conditioning 06/01/21 11:48 Occupational Therapy Evaluate and Treat [CONS] Stat Comment: Reason For Exam: Debility 06/02/21 09:41 Physical Therapy Evaluation and Treat [CONS] Urgent Comment: Reason For Exam: pending DC Primary care physician: CONCEPCION MACIEL Hospitalization Condition: Serious Hospital course: This is a 80-year-old female with known past medical history of HTN, ESRD on HD initially admitted to floor for severe anemia 2/2 of possible GIB. Patient was transferred in the ICU on 05/30 due to new onset atrial fibrillation, HR sustaining in the 140s. Hospital Course to Date: 05/29/21: Hb 5.3 ,transfuse 2 unit of packed red blood cell. 05/30/2021- patient went into A. fib with rapid ventricular rate, cardiology consulted. Started amiodarone drip, transfer to ICU for close observation . Unable to start anticoagulation due to severe anemia and GI bleeding.. Endoscopy rescheduled for tomorrow Continue to monitor in ICU 05/31: S/p EGD this am, duodenal bulb ulcer noted which was clipped and bx, otherwise unremarkable EGD per GI. Patient is hypotensive this am post procedure, probably related to sedation vs hypovolemia. S/p 250mg of NS bolus with some improvement, and PO midodrine added. Amiodorone gtt is on hold this am due to bradycardia and hypotension. SR with a HR in the low 50s noted on the monitor, 12lead EKg ordered to confirm conversion. Patient's H&H is stable this am, GI recommendations noted. Patient is tolerating clear liquid diet, continue PPI, and trend H&H Q8hr, transfuse if hgb is less than 7. 06/01: Remains stable, on RA. SB noted on the monitor with wide pulse pressure. No s/s of any active bleeding overnight, H&H remains stable. D/w Cardio patient is stable for transfer to Telemetry. Plan for HD today. Continue PRN analgesia for pain management, PT eval and treat pending. 06/02 patient is awake and alert. Eating poorly. Status post PRBC transfusion. GI and cardiology notes reviewed. Family in the room. PT evaluation is pending 06/03; refused ROGELIO, dc home with Assessment and Plan #Atrial Fibrillation with Rapid Ventricular Rate - Went into Afib with RVR on the floor, HR as high as 140s - Unclear if patient has a history, most likely new onset - Cardiology on consult, appreciated recommendations - s/p Amiodorone gtt - 05/31 Coverted to Sinus, EKG confirmed SB - Continue PRN IV metoprolol for HR greater than 120 - Patient not a candidate for Anticoagulation at this time due to severe anemia and possible GIB -Reviewed cardiology note Due to persistent bradycardia, AV yasmin blockers have been discontinued - [facility] is also consulted, appreciate recommendations #Hypotension-improved - probably 2/2 hypovolemia vs sedation post EGD procedure - Wide pulse pressure, patient is asymptomatic - Continue Midodrine - Continue to trend H&H, transfuse if hbg less than 7 - Continue blood pressure monitor per protocol - Maintain SBP less than 160 #Severe Anemia H&H stable posttransfusion #Thrombocytopenia #Melena #Status post EGD - Presented with Hgb of 5.3 and Hct of 15.9 - Stool guaiac is positive in the ED - s/p 2units of PRBCs - GI consulted, appreciate recommendations - 05/31 s/p EGD with endoscopic clipping which revealed 1cm Duodenal bulb ulcer (clipped x 2), Cold bx antrum for H pylori. Normal stomach and esophagus - No s/s of any active bleeding - H&H remains stable - Continue PPI- Protonix BID - On Full liquid diet, advance as tolerated - Will continue to trend CBC - Transfuse if Hgb is less than 7 -Resume aspirin on 06/09 per review of GI note #ESRD on HD- MWF - Patient is anuric - Nephrology on consult, appreciated recommendation - Continue HD per Nephro - Strict intake and output - Avoid nephrotoxic medications; Renally dose medications - Monitor and replace electrolytes as needed #GI/DVT Prophylaxis - PPI- IV protonix - SCD for DVT prophylaxis. Disposition: HOME HEALTH CARE SERVICE Time spent for discharge: 34 minutes Core Measure Documentation - Palliative Care Palliative Care/ Comfort Measures: Not Applicable - Core Measures Any of the following diagnoses?: none Exam - Constitutional Vitals: Temp Pulse Resp BP Pulse Ox 98.2 F 60 16 134/37 96 06/03/21 08:18 06/03/21 10:00 06/03/21 03:40 06/03/21 08:18 06/03/21 10:00 Plan Activity: advance as tolerated Weight Bearing Status: Non-Weight Bearing Diet: low fat, low salt Additional Instructions: Resume aspirin from 06/09/21. Repeat BMP in 1 week Follow up with: CONCEPCION MACIEL MD [Primary Care Provider] - 7 Days Prescriptions: Amiodarone [Cordarone 200 MG TAB] 100 mg PO QDAY #30 tablet Midodrine [Proamatine] 5 mg PO TID@0800,1200,1600 #60 tablet Pantoprazole [Protonix TAB] 40 mg PO DAILY #30 tablet
[2021-06-04 06:27] LABS: Basophils # (Auto) 0.1 K/mm3 (0.0-0.1); Basophils % (Auto) 0.9 % (0.0-1.8); Eosinophils # (Auto) 0.5 K/mm3 (0.0-0.4); Eosinophils % (Auto) 7.5 % (0.0-4.3); Hematocrit 24.9 % (30.3-42.9); Hemoglobin 8.3 gm/dl (10.1-14.3); Lymphocytes # (Auto) 1.1 K/mm3 (1.2-5.4); Mean Corpuscular HGB Conc 33 % (30-34); Mean Corpuscular Volume 87 fl (79-97); Monocytes # (Auto) 0.9 K/mm3 (0.0-0.8); Monocytes % (Auto) 14.8 % (0.0-7.3); Platelet Count 175 K/mm3 (140-440); Red Blood Count 2.86 M/mm3 (3.65-5.03)
[2021-06-04 06:30] LABS: Red Cell Distribution Width 20.6 % (13.2-15.2)
[2021-06-04 06:42] LABS: Calcium 6.7 mg/dL (8.4-10.2)
[2021-06-04] MEDS: AMIODARONE 200 MG TAB PO SCH (09:36)
[2021-06-04] MEDS: MIDODRINE 5 MG TAB PO SCH ×3 (09:37→16:22)
[2021-06-04] MEDS: PANTOPRAZOLE 40 MG TAB PO SCH (09:37)
[2021-06-04] MEDS: ACETAMINOPHEN 325 MG TAB PO PRN ×2 (09:40→21:48)
--- NOTE | 2021-06-04 15:06 | Progress Note ---
Assessment and Plan Assessment * End stage renal disease (Outpatient HD at [facility]) * Symptomatic anemia of ABL * GI bleed --EGD: Duodenal ulcer (May 31) * Atrial fibrillation with RVR * Azotemia - multifactorial, 2/2 GI bleed vs ESRD * Hypertension * Secondary hyperparathyroidism Plan: * Continue MWF schedule -UF a tolerated * Will order Miralax daily * Transfuse pRBC prn * GI recommendations noted - f/u as outpatient * Rate control per cardiology * Epogen prn * AM labs * Dose medications for renal function Subjective Date of service: 06/04/21 Principal diagnosis: DU with hemorrhage Interval history: Patient c/o constipation Objective - Vital Signs Vital signs: Vital Signs - 12hr 06/04/21 06/04/21 06/04/21 05:02 07:35 08:15 Temperature 97.8 F 98.9 F Pulse Rate 59 L 54 L 61 Pulse Rate [ Radial] Respiratory 16 16 Rate Blood Pressure 144/43 162/53 O2 Sat by Pulse 98 97 Oximetry 06/04/21 10:00 Temperature Pulse Rate Pulse Rate [ 54 L Radial] Respiratory 18 Rate Blood Pressure O2 Sat by Pulse 95 Oximetry - General Appearance General appearance: well-developed, well-nourished EENT: ATNC Respiratory: Present: Clear to Ascultation Cardiology: regular, S1S2 Gastrointestinal: normal, no tenderness, no distended Integumentary: no rash, warm and dry Neurologic: alert and oriented x3 Psychiatric: cooperative - Lab 06/04/21 04:53 06/04/21 04:53 Most recent lab results Calcium 6.7 mg/dL (8.4-10.2) L 06/04/21 04:53 Phosphorus 4.80 mg/dL (2.5-4.5) H 06/01/21 04:42 Magnesium 1.70 mg/dL (1.7-2.3) 06/01/21 04:42 Medications & Allergies - Medications Allergies/Adverse Reactions: Allergies celecoxib [From Celebrex] Allergy (Verified 05/30/21 12:42) FACE SWELLING sulfamethoxazole [From Bactrim] Allergy (Verified 05/30/21 12:42) Swelling trimethoprim [From Bactrim] Allergy (Verified 05/30/21 12:42) Swelling Home Medications: Home Medications Medication Instructions Recorded Confirmed Last Taken Type Amiodarone [Cordarone 200 MG TAB] 100 mg PO QDAY #30 tablet 06/03/21 Unknown Rx Midodrine [Proamatine] 5 mg PO TID@0800,1200,1600 #60 06/03/21 Unknown Rx tablet Pantoprazole [Protonix TAB] 40 mg PO DAILY #30 tablet 06/03/21 Unknown Rx Active Medications: Generic Name Dose Route Start Last Admin Trade Name Freq PRN Reason Stop Dose Admin Acetaminophen 650 mg 05/29/21 05:28 06/04/21 09:40 Acetaminophen 325 Mg Tab PO 650 mg Q4H PRN Administration Pain MILD(1-3)/Fever >100.5/LOVE Albumin Human 25 gm 05/29/21 16:05 Albumin Human 25% (25 Gm/100 Ml) Inj IV ASHLEY PRN Hypotension Amiodarone HCl 100 mg 06/04/21 10:00 06/04/21 09:36 Amiodarone 200 Mg Tab PO 100 mg QDAY ELAINE Administration Epoetin Salas-epbx 20,000 unit 05/29/21 16:05 06/03/21 15:00 Epoetin Salas-Epbx 20,000 Unit/1 Ml Vial IV 20,000 unit ASHLEY PRN Administration hemodialysis Hydrocortisone Acetate 1 applic 05/30/21 14:00 Hydrocortisone 1% Cream 28.4gm TP Q8H PRN Skin Irritation Sodium Chloride 100 mls @ 999 mls/hr 06/01/21 10:00 Nacl 0.9% IV ASHLEY PRN Hypotension Metoprolol Tartrate 2.5 mg 05/30/21 16:00 Metoprolol Tartrate 5 Mg/5 Ml Inj IV Q6HR PRN HR >120 Midodrine 5 mg 06/01/21 12:00 06/04/21 14:01 Midodrine 5 Mg Tab PO Not Given TID@0800,1200,1600 [facility] Morphine Sulfate 2 mg 05/29/21 05:28 06/01/21 10:52 Morphine 2 Mg/1 Ml Inj IV 2 mg Q4H PRN Administration Pain, Moderate (4-6) Ondansetron HCl 4 mg 05/29/21 05:28 06/01/21 17:15 Ondansetron 4 Mg/2 Ml Inj IV 4 mg Q8H PRN Administration Nausea And Vomiting Pantoprazole Sodium 40 mg 06/02/21 10:00 06/04/21 09:37 Pantoprazole 40 Mg Tab PO 40 mg DAILY ELAINE Administration Sodium Chloride 10 ml 05/29/21 10:00 06/04/21 09:37 Sodium Chloride 0.9% 10 Ml Flush Syringe IV 10 ml BID ELAINE Administration Sodium Chloride 10 ml 05/29/21 05:28 Sodium Chloride 0.9% 10 Ml Flush Syringe IV PRN PRN LINE FLUSH
[2021-06-04] MEDS: POLYETHYLENE GLYCOL 3350 17 GM POWDER PO SCH (16:54)
--- NOTE | 2021-06-04 18:04 | Progress Note ---
Assessment and Plan This is a 80-year-old female with known past medical history of HTN, ESRD on HD initially admitted to floor for severe anemia 2/2 of possible GIB. Patient was transferred in the ICU on 05/30 due to new onset atrial fibrillation, HR sustaini ng in the 140s. Hospital Course to Date: 05/30/2021- patient went into A. fib with rapid ventricular rate, cardiology consulted. Started amiodarone drip, transfer to ICU for close observation . Unable to start anticoagulation due to severe anemia and GI bleeding.. Endoscopy rescheduled for tomorrow Continue to monitor in ICU 05/31: S/p EGD this am, duodenal bulb ulcer noted which was clipped and bx, otherwise unremarkable EGD per GI. Patient is hypotensive this am post procedure, probably related to sedation vs hypovolemia. S/p 250mg of NS bolus with some improvement, and PO midodrine added. Amiodorone gtt is on hold this am due to bradycardia and hypotension. SR with a HR in the low 50s noted on the monitor, 12lead EKg ordered to confirm conversion. Patient's H&H is stable this am, GI recommendations noted. Patient is tolerating clear liquid diet, continue PPI, and trend H&H Q8hr, transfuse if hgb is less than 7. 06/01: Remains stable, on RA. SB noted on the monitor with wide pulse pressure. No s/s of any active bleeding overnight, H&H remains stable. D/w Cardio patient is stable for transfer to Telemetry. Plan for HD today. Continue PRN analgesia for pain management, PT eval and treat pending. 06/02 patient is awake and alert. Eating poorly. Status post PRBC transfusion. GI and cardiology notes reviewed. Family in the room. PT evaluation is pending 06/03: seen patient during HD. she states that she lives alone and unable to get up from bed. c/o lightheadedness, patient strongly wants to go to [facility] CM to follow [facility]. 06/04: resting on bed, pending rehab, clinically stable. family at bedside. Assessment and Plan #Atrial Fibrillation with Rapid Ventricular Rate - Went into Afib with RVR on the floor, HR as high as 140s - Unclear if patient has a history, most likely new onset - Cardiology on consult, appreciated recommendations - s/p Amiodorone gtt - 05/31 Coverted to Sinus, EKG confirmed SB - Continue PRN IV metoprolol for HR greater than 120 - Patient not a candidate for Anticoagulation at this time due to severe anemia and possible GIB -Reviewed cardiology note Due to persistent bradycardia, AV yasmin blockers have been discontinued - CCM is also consulted, appreciate recommendations #Hypotension-improved - probably 2/2 hypovolemia vs sedation post EGD procedure - Wide pulse pressure, patient is asymptomatic - Continue Midodrine - Continue to trend H&H, transfuse if hbg less than 7 - Continue blood pressure monitor per protocol - Maintain SBP less than 160 #Severe Anemia H&H stable posttransfusion #Thrombocytopenia #Melena #Status post EGD - Presented with Hgb of 5.3 and Hct of 15.9 - Stool guaiac is positive in the ED - s/p 2units of PRBCs - GI consulted, appreciate recommendations - 05/31 s/p EGD with endoscopic clipping which revealed 1cm Duodenal bulb ulcer (clipped x 2), Cold bx antrum for H pylori. Normal stomach and esophagus - No s/s of any active bleeding - H&H remains stable - Continue PPI- Protonix BID - On Full liquid diet, advance as tolerated - Will continue to trend CBC - Transfuse if Hgb is less than 7 -Resume aspirin on 06/09 per review of GI note #ESRD on HD- MWF - Patient is anuric - Nephrology on consult, appreciated recommendation - Continue HD per Nephro - Strict intake and output - Avoid nephrotoxic medications; Renally dose medications - Monitor and replace electrolytes as needed #GI/DVT Prophylaxis - PPI- IV protonix - SCD for DVT prophylaxis. Subjective Date of service: 06/04/21 Principal diagnosis: DU with hemorrhage Interval history: Patient seen and examined pending placement family at bedside vitals noted and stable Objective - Exam Narrative Exam: General appearance: Present: no acute distress - EENT Eyes: PERRL, EOM intact ENT: hearing intact, clear oral mucosa - Neck Neck: supple, normal ROM - Respiratory Respiratory effort: normal Respiratory: bilateral: CTA - Breasts Breasts: deferred - Cardiovascular Rhythm: irregularly irregular Heart Sounds: Present: S1 & S2 Extremities: No edema - Gastrointestinal General gastrointestinal: Present: soft, non-tender Rectal Exam: deferred - Genitourinary Female genitourinary: deferred - Integumentary Integumentary: clear - Neurologic Neurologic: no focal deficits, moves all extremities - Psychiatric Psychiatric: appropriate mood/affect - Constitutional Vitals: Vital Signs - 12hr 06/04/21 06/04/21 06/04/21 07:35 08:15 10:00 Temperature 98.9 F Pulse Rate 54 L 61 Pulse Rate [ 54 L Radial] Respiratory 16 18 Rate Blood Pressure 162/53 O2 Sat by Pulse 97 95 Oximetry 06/04/21 15:39 Temperature 98.3 F Pulse Rate 68 Pulse Rate [ Radial] Respiratory 18 Rate Blood Pressure 164/56 O2 Sat by Pulse 99 Oximetry - Labs CBC & Chem 7: 06/05/21 05:05 06/05/21 05:05 Labs: Abnormal lab results 06/04/21 06/04/21 Range/Units 04:53 04:53 RBC 2.86 L (3.65-5.03) M/mm3 Hgb 8.3 L (10.1-14.3) gm/dl Hct 24.9 L (30.3-42.9) % RDW 20.6 H (13.2-15.2) % [place] % (Auto) 14.8 H (0.0-7.3) % Eos % (Auto) 7.5 H (0.0-4.3) % Lymph # (Auto) 1.1 L (1.2-5.4) K/mm3 [place] # (Auto) 0.9 H (0.0-0.8) K/mm3 Eos # (Auto) 0.5 H (0.0-0.4) K/mm3 Potassium 3.5 L (3.6-5.0) mmol/L BUN 27 H (7-17) mg/dL Creatinine 3.2 H (0.6-1.2) mg/dL Calcium 6.7 L (8.4-10.2) mg/dL
[2021-06-05 06:29] LABS: Hematocrit 26.2 % (30.3-42.9); Hemoglobin 8.3 gm/dl (10.1-14.3); Mean Corpuscular HGB Conc 32 % (30-34); Mean Corpuscular Volume 88 fl (79-97); Platelet Count 222 K/mm3 (140-440); Red Blood Count 2.96 M/mm3 (3.65-5.03)
[2021-06-05 06:39] LABS: Calcium 6.9 mg/dL (8.4-10.2)
[2021-06-05 06:53] LABS: Red Cell Distribution Width 21.9 % (13.2-15.2)
[2021-06-05] MEDS: MIDODRINE 5 MG TAB PO SCH ×3 (08:38→16:50)
[2021-06-05 09:39] LABS: Calcium 7.3 mg/dL (8.4-10.2)
[2021-06-05] MEDS: AMIODARONE 200 MG TAB PO SCH (10:20)
[2021-06-05] MEDS: PANTOPRAZOLE 40 MG TAB PO SCH (10:20)
[2021-06-05] MEDS: POLYETHYLENE GLYCOL 3350 17 GM POWDER PO SCH (10:21)
--- NOTE | 2021-06-05 10:45 | Progress Note ---
Assessment and Plan 1. Paroxysmal AF. Now maintaining SR with low dose amiodarone. Deemed to be a poor candidate for alf anticoagulation 2. GI bleed s/p EGD 3. Anemia 4. ESRD 5. Thrombocytopenia Recommend: Continue current therapy from cardiac perspective. Awaiting placement Subjective Date of service: 06/05/21 Principal diagnosis: DU with hemorrhage Interval history: No cardiac complaints Objective Vital Signs Temp Pulse Resp BP Pulse Ox 06/05/21 08:18 98.6 F 61 16 162/59 99 06/05/21 05:39 98.6 F 65 18 182/48 98 06/05/21 00:00 67 97 06/04/21 23:37 98.6 F 18 150/41 06/04/21 23:35 97 06/04/21 20:35 97.3 F L 64 20 146/36 97 06/04/21 15:39 98.3 F 68 18 164/56 99 - Physical Examination General: No Apparent Distress HEENT: Positive: PERRL Neck: Positive: neck supple Cardiac: Positive: Reg Rate and Rhythm Lungs: Positive: clear to auscultation Neuro: Positive: Grossly Intact Abdomen: Positive: Soft Extremities: Absent: edema - Labs and Meds CBC 06/05/21 Range/Units 05:05 WBC 5.6 (4.5-11.0) K/mm3 RBC 2.96 L (3.65-5.03) M/mm3 Hgb 8.3 L (10.1-14.3) gm/dl Hct 26.2 L (30.3-42.9) % Plt Count 222 (140-440) K/mm3 Comprehensive Metabolic Panel 06/05/21 06/05/21 Range/Units 05:05 08:43 Sodium 140 142 (137-145) mmol/L Potassium 3.6 3.9 (3.6-5.0) mmol/L Chloride 102.4 103.5 (98-107) mmol/L Carbon Dioxide 26 26 (22-30) mmol/L BUN 35 H 34 H (7-17) mg/dL Creatinine 4.0 H 3.9 H (0.6-1.2) mg/dL Glucose 85 90 (65-100) mg/dL Calcium 6.9 L 7.3 L (8.4-10.2) mg/dL - Allied health notes Allied health notes reviewed: nursing
--- NOTE | 2021-06-05 11:45 | Progress Note ---
Assessment and Plan Assessment * End stage renal disease (Outpatient HD at [facility]) * Symptomatic anemia of ABL * GI bleed --EGD: Duodenal ulcer (May 31) * Atrial fibrillation with RVR * Azotemia - multifactorial, 2/2 GI bleed vs ESRD * Hypertension * Secondary hyperparathyroidism Plan: * Continue MWF schedule -UF a tolerated * Transfuse pRBC prn * GI recommendations noted - f/u as outpatient * Rate control per cardiology * Epogen prn * AM labs * Dose medications for renal function Subjective Date of service: 06/05/21 Principal diagnosis: DU with hemorrhage Interval history: Patient has complaints today Objective - Vital Signs Vital signs: Vital Signs - 12hr 06/05/21 06/05/21 06/05/21 00:00 05:39 08:18 Temperature 98.6 F 98.6 F Pulse Rate 67 65 61 Respiratory 18 16 Rate Blood Pressure 182/48 162/59 O2 Sat by Pulse 97 98 99 Oximetry 06/05/21 11:37 Temperature 98.7 F Pulse Rate 65 Respiratory 16 Rate Blood Pressure 167/47 O2 Sat by Pulse 98 Oximetry - General Appearance General appearance: well-developed, well-nourished EENT: ATNC Respiratory: Present: Clear to Ascultation Cardiology: regular, S1S2 Gastrointestinal: normal, no tenderness, no distended Integumentary: no rash Neurologic: no focal deficit, alert and oriented x3 Psychiatric: cooperative - Lab 06/05/21 05:05 06/05/21 08:43 Most recent lab results Calcium 7.3 mg/dL (8.4-10.2) L 06/05/21 08:43 Phosphorus 4.80 mg/dL (2.5-4.5) H 06/01/21 04:42 Magnesium 1.70 mg/dL (1.7-2.3) 06/01/21 04:42 Medications & Allergies - Medications Allergies/Adverse Reactions: Allergies celecoxib [From Celebrex] Allergy (Verified 05/30/21 12:42) FACE SWELLING sulfamethoxazole [From Bactrim] Allergy (Verified 05/30/21 12:42) Swelling trimethoprim [From Bactrim] Allergy (Verified 05/30/21 12:42) Swelling Home Medications: Home Medications Medication Instructions Recorded Confirmed Last Taken Type Amiodarone [Cordarone 200 MG TAB] 100 mg PO QDAY #30 tablet 06/03/21 Unknown Rx Midodrine [Proamatine] 5 mg PO TID@0800,1200,1600 #60 06/03/21 Unknown Rx tablet Pantoprazole [Protonix TAB] 40 mg PO DAILY #30 tablet 06/03/21 Unknown Rx Active Medications: Generic Name Dose Route Start Last Admin Trade Name Freq PRN Reason Stop Dose Admin Acetaminophen 650 mg 05/29/21 05:28 06/04/21 21:48 Acetaminophen 325 Mg Tab PO 650 mg Q4H PRN Administration Pain MILD(1-3)/Fever >100.5/LOVE Albumin Human 25 gm 05/29/21 16:05 Albumin Human 25% (25 Gm/100 Ml) Inj IV ASHLEY PRN Hypotension Amiodarone HCl 100 mg 06/04/21 10:00 06/05/21 10:20 Amiodarone 200 Mg Tab PO 100 mg QDAY ELAINE Administration Epoetin Salas-epbx 20,000 unit 05/29/21 16:05 06/03/21 15:00 Epoetin Salas-Epbx 20,000 Unit/1 Ml Vial IV 20,000 unit ASHLEY PRN Administration hemodialysis Hydrocortisone Acetate 1 applic 05/30/21 14:00 Hydrocortisone 1% Cream 28.4gm TP Q8H PRN Skin Irritation Sodium Chloride 100 mls @ 999 mls/hr 06/01/21 10:00 Nacl 0.9% IV ASHLEY PRN Hypotension Metoprolol Tartrate 2.5 mg 05/30/21 16:00 Metoprolol Tartrate 5 Mg/5 Ml Inj IV Q6HR PRN HR >120 Midodrine 5 mg 06/01/21 12:00 06/05/21 08:38 Midodrine 5 Mg Tab PO Not Given TID@0800,1200,1600 ELAINE Morphine Sulfate 2 mg 05/29/21 05:28 06/01/21 10:52 Morphine 2 Mg/1 Ml Inj IV 2 mg Q4H PRN Administration Pain, Moderate (4-6) Ondansetron HCl 4 mg 05/29/21 05:28 06/01/21 17:15 Ondansetron 4 Mg/2 Ml Inj IV 4 mg Q8H PRN Administration Nausea And Vomiting Pantoprazole Sodium 40 mg 06/02/21 10:00 06/05/21 10:20 Pantoprazole 40 Mg Tab PO 40 mg DAILY ELAINE Administration Polyethylene Glycol 17 gm 06/04/21 16:00 06/05/21 10:21 Polyethylene Glycol 3350 17 Gm Powder PO 17 gm QDAY ELAINE Administration Sodium Chloride 10 ml 05/29/21 10:00 06/05/21 10:21 Sodium Chloride 0.9% 10 Ml Flush Syringe IV 10 ml BID ELAINE Administration Sodium Chloride 10 ml 05/29/21 05:28 Sodium Chloride 0.9% 10 Ml Flush Syringe IV PRN PRN LINE FLUSH
[2021-06-05 11:48] LABS: Basophils % (Manual) 0 % (0.0-1.8); Eosinophils % (Manual) 0 % (0.0-4.3); Total Cells Counted 100
[2021-06-05 11:49] LABS: Ovalocytes Few
[2021-06-05 11:50] LABS: Platelet Estimate Consistent w Auto; Tear Drop Cells Few
--- NOTE | 2021-06-05 12:54 | Progress Note ---
Subjective Date of service: 06/05/21 Principal diagnosis: Duodenal ulcer Interval history: Seen and examined. Vitals, labs, medications, chart reviewed. No further bleeding, appetite continues to slowly improving, denies any chest pain, no shortness of breath, no fevers or chills. Tolerating HD, Friend is at the bedside visiting Objective Vital Signs - 12hr 06/05/21 06/05/21 06/05/21 05:39 08:18 11:37 Temperature 98.6 F 98.6 F 98.7 F Pulse Rate 65 61 65 Respiratory 18 16 16 Rate Blood Pressure 182/48 162/59 167/47 O2 Sat by Pulse 98 99 98 Oximetry CBC and BMP: 06/05/21 05:05 06/05/21 08:43 ABG, PT/INR, D-dimer: PT/INR, D-dimer PT 18.1 Sec. (12.2-14.9) H 05/29/21 03:57 INR 1.33 (0.87-1.13) H 05/29/21 03:57 Abnormal lab findings: Abnormal Labs 05/29/21 05/29/21 05/29/21 01:16 01:16 01:52 WBC RBC 1.56 L Hgb 5.3 L* Hct 15.9 L* MCV 102 H MCH 34 H RDW Plt Count 131 L Lymph % (Auto) 11.4 L [place] % (Auto) Eos % (Auto) Lymph # (Auto) 0.9 L [place] # (Auto) Eos # (Auto) Seg Neutrophils % 82.9 H Seg Neuts % (Manual) Lymphocytes % (Manual) Seg Neutrophils # Lymphocytes # (Manual) PT INR Potassium Carbon Dioxide 21 L BUN 69 H Creatinine 2.5 H Glucose 112 H Calcium 8.0 L Phosphorus Total Protein 4.8 L Albumin 3.0 L Lipase 73 H Urine WBC (Auto) Crossmatch 05/29/21 05/29/21 05/29/21 03:57 03:57 06:35 WBC RBC Hgb Hct MCV MCH RDW Plt Count Lymph % (Auto) [place] % (Auto) Eos % (Auto) Lymph # (Auto) [place] # (Auto) Eos # (Auto) Seg Neutrophils % Seg Neuts % (Manual) Lymphocytes % (Manual) Seg Neutrophils # Lymphocytes # (Manual) PT 18.1 H INR 1.33 H Potassium Carbon Dioxide BUN Creatinine Glucose Calcium Phosphorus Total Protein Albumin Lipase Urine WBC (Auto) 10.0 H Crossmatch See Detail 05/30/21 05/30/21 05/31/21 03:03 03:03 04:15 WBC 13.0 H RBC 2.05 L 3.42 L Hgb 6.2 L 9.3 L D Hct 18.7 L* 28.2 L D MCV MCH 27 L RDW 17.5 H 20.2 H Plt Count 108 L 101 L Lymph % (Auto) 8.9 L 7.3 L [place] % (Auto) 8.5 H 9.8 H Eos % (Auto) Lymph # (Auto) 0.9 L 1.0 L [place] # (Auto) 0.9 H 1.3 H Eos # (Auto) Seg Neutrophils % 81.6 H 82.0 H Seg Neuts % (Manual) Lymphocytes % (Manual) Seg Neutrophils # 8.3 H 10.7 H Lymphocytes # (Manual) PT INR Potassium 5.2 H Carbon Dioxide 18 L BUN 135 H Creatinine 4.1 H D Glucose 163 H Calcium 7.5 L Phosphorus Total Protein Albumin Lipase Urine WBC (Auto) Crossmatch 05/31/21 05/31/21 06/01/21 04:15 14:19 04:42 WBC RBC 3.03 L Hgb 8.9 L 8.5 L Hct 26.8 L 26.0 L MCV MCH RDW 20.7 H Plt Count 113 L 122 L Lymph % (Auto) [place] % (Auto) 12.6 H Eos % (Auto) 4.5 H Lymph # (Auto) [place] # (Auto) 1.1 H Eos # (Auto) Seg Neutrophils % Seg Neuts % (Manual) Lymphocytes % (Manual) Seg Neutrophils # Lymphocytes # (Manual) PT INR Potassium Carbon Dioxide BUN 46 H Creatinine 2.6 H Glucose 135 H Calcium 7.6 L Phosphorus Total Protein Albumin Lipase Urine WBC (Auto) Crossmatch 06/01/21 06/02/21 06/02/21 04:42 07:24 07:24 WBC RBC 3.18 L Hgb 9.1 L Hct 27.5 L MCV MCH RDW 20.2 H Plt Count 138 L Lymph % (Auto) 6.7 L [place] % (Auto) 15.1 H Eos % (Auto) Lymph # (Auto) 0.6 L [place] # (Auto) 1.3 H Eos # (Auto) Seg Neutrophils % 75.7 H Seg Neuts % (Manual) Lymphocytes % (Manual) Seg Neutrophils # Lymphocytes # (Manual) PT INR Potassium Carbon Dioxide BUN 56 H 21 H Creatinine 3.9 H 2.3 H Glucose 102 H Calcium 7.3 L 6.9 L Phosphorus 4.80 H Total Protein Albumin Lipase Urine WBC (Auto) Crossmatch 06/03/21 06/03/21 06/04/21 05:49 05:49 04:53 WBC RBC 2.97 L 2.86 L Hgb 8.6 L 8.3 L Hct 25.7 L 24.9 L MCV MCH RDW 20.5 H 20.6 H Plt Count Lymph % (Auto) [place] % (Auto) 15.6 H 14.8 H Eos % (Auto) 6.8 H 7.5 H Lymph # (Auto) 1.0 L 1.1 L [place] # (Auto) 1.0 H 0.9 H Eos # (Auto) 0.5 H Seg Neutrophils % Seg Neuts % (Manual) Lymphocytes % (Manual) Seg Neutrophils # Lymphocytes # (Manual) PT INR Potassium Carbon Dioxide BUN 41 H Creatinine 4.1 H D Glucose Calcium 6.7 L Phosphorus Total Protein Albumin Lipase Urine WBC (Auto) Crossmatch 06/04/21 06/05/21 06/05/21 04:53 05:05 05:05 WBC RBC 2.96 L Hgb 8.3 L Hct 26.2 L MCV MCH RDW 21.9 H Plt Count Lymph % (Auto) [place] % (Auto) Eos % (Auto) Lymph # (Auto) [place] # (Auto) Eos # (Auto) Seg Neutrophils % Seg Neuts % (Manual) 87.0 H Lymphocytes % (Manual) 9.0 L Seg Neutrophils # Lymphocytes # (Manual) 0.5 L PT INR Potassium 3.5 L Carbon Dioxide BUN 27 H 35 H Creatinine 3.2 H 4.0 H Glucose Calcium 6.7 L 6.9 L Phosphorus Total Protein Albumin Lipase Urine WBC (Auto) Crossmatch 06/05/21 08:43 WBC RBC Hgb Hct MCV MCH RDW Plt Count Lymph % (Auto) [place] % (Auto) Eos % (Auto) Lymph # (Auto) [place] # (Auto) Eos # (Auto) Seg Neutrophils % Seg Neuts % (Manual) Lymphocytes % (Manual) Seg Neutrophils # Lymphocytes # (Manual) PT INR Potassium Carbon Dioxide BUN 34 H Creatinine 3.9 H Glucose Calcium 7.3 L Phosphorus Total Protein Albumin Lipase Urine WBC (Auto) Crossmatch Allied health notes reviewed: nursing
--- NOTE | 2021-06-05 13:17 | Progress Note ---
Subjective Date of service: 06/05/21 Principal diagnosis: Duodenal ulcer Interval history: Assessment and plan: This is a 80-year-old female with known past medical history of HTN, ESRD on HD initially admitted to floor for severe anemia 2/2 of possible GIB. Patient was transferred in the ICU on 05/30 due to new onset atrial fibrillation, HR sustaining in the 140s. Hospital Course to Date: 05/30/2021- patient went into A. fib with rapid ventricular rate, cardiology consulted. Started amiodarone drip, transfer to ICU for close observation . Unable to start anticoagulation due to severe anemia and GI bleeding.. Endoscopy rescheduled for tomorrow Continue to monitor in ICU 05/31: S/p EGD this am, duodenal bulb ulcer noted which was clipped and bx, otherwise unremarkable EGD per GI. Patient is hypotensive this am post procedure, probably related to sedation vs hypovolemia. S/p 250mg of NS bolus with some improvement, and PO midodrine added. Amiodorone gtt is on hold this am due to bradycardia and hypotension. SR with a HR in the low 50s noted on the monitor, 12lead EKg ordered to confirm conversion. Patient's H&H is stable this am, GI recommendations noted. Patient is tolerating clear liquid diet, continue PPI, and trend H&H Q8hr, transfuse if hgb is less than 7. 06/01: Remains stable, on RA. SB noted on the monitor with wide pulse pressure. No s/s of any active bleeding overnight, H&H remains stable. D/w Cardio patient is stable for transfer to Telemetry. Plan for HD today. Continue PRN analgesia for pain management, PT eval and treat pending. 06/02 patient is awake and alert. Eating poorly. Status post PRBC transfusion. GI and cardiology notes reviewed. Family in the room. PT evaluation is pending 06/03: seen patient during HD. she states that she lives alone and unable to get up from bed. c/o lightheadedness, patient strongly wants to go to [facility]. CM to follow [facility]. 06/04: resting on bed, pending rehab, clinically stable. family at bedside. 06/05 patient is awake and alert and offers no specific complaints./Awaiting subacute rehab placement Assessment and Plan #Atrial Fibrillation with Rapid Ventricular Rate - Went into Afib with RVR on the floor, HR as high as 140s - Unclear if patient has a history, most likely new onset - Cardiology on consult, appreciated recommendations - s/p Amiodorone gtt - 05/31 Coverted to Sinus, EKG confirmed SB - Continue PRN IV metoprolol for HR greater than 120 - Patient not a candidate for Anticoagulation at this time due to severe anemia and possible GIB -Reviewed cardiology note Due to persistent bradycardia, AV yasmin blockers have been discontinued - CCM is also consulted, appreciate recommendations #Hypotension-improved - probably 2/2 hypovolemia vs sedation post EGD procedure - Wide pulse pressure, patient is asymptomatic - Continue Midodrine - Continue to trend H&H, transfuse if hbg less than 7 - Continue blood pressure monitor per protocol - Maintain SBP less than 160 #Severe Anemia H&H stable posttransfusion #Thrombocytopenia #Melena #Status post EGD - Presented with Hgb of 5.3 and Hct of 15.9 - Stool guaiac is positive in the ED - s/p 2units of PRBCs - GI consulted, appreciate recommendations - 05/31 s/p EGD with endoscopic clipping which revealed 1cm Duodenal bulb ulcer (clipped x 2), Cold bx antrum for H pylori. Normal stomach and esophagus - No s/s of any active bleeding - H&H remains stable - Continue PPI- Protonix BID - On Full liquid diet, advance as tolerated - Will continue to trend CBC - Transfuse if Hgb is less than 7 -Resume aspirin on 06/09 per review of GI note #ESRD on HD- MWF - Patient is anuric - Nephrology on consult, appreciated recommendation - Continue HD per Nephro - Strict intake and output - Avoid nephrotoxic medications; Renally dose medications - Monitor and replace electrolytes as needed #GI/DVT Prophylaxis - PPI- IV protonix - SCD for DVT prophylaxis. Objective - Constitutional Vitals: Vital Signs - 12hr 06/05/21 06/05/21 06/05/21 05:39 08:18 11:37 Temperature 98.6 F 98.6 F 98.7 F Pulse Rate 65 61 65 Respiratory 18 16 16 Rate Blood Pressure 182/48 162/59 167/47 O2 Sat by Pulse 98 99 98 Oximetry General appearance: Present: no acute distress - EENT Eyes: PERRL, EOM intact ENT: hearing intact, clear oral mucosa - Neck Neck: supple - Respiratory Respiratory effort: normal Respiratory: bilateral: CTA - Cardiovascular Rhythm: regular Heart Sounds: Present: S1 & S2 Extremities: No edema - Gastrointestinal General gastrointestinal: Present: soft Rectal Exam: deferred - Genitourinary Female genitourinary: deferred - Integumentary Integumentary: clear - Neurologic Neurologic: moves all extremities - Labs CBC & Chem 7: 06/05/21 05:05 06/05/21 08:43 Labs: Abnormal lab results 06/05/21 06/05/21 06/05/21 Range/Units 05:05 05:05 08:43 RBC 2.96 L (3.65-5.03) M/mm3 Hgb 8.3 L (10.1-14.3) gm/dl Hct 26.2 L (30.3-42.9) % RDW 21.9 H (13.2-15.2) % Seg Neuts % (Manual) 87.0 H (40.0-70.0) % Lymphocytes % (Manual) 9.0 L (13.4-35.0) % Lymphocytes # (Manual) 0.5 L (1.2-5.4) K/mm3 BUN 35 H 34 H (7-17) mg/dL Creatinine 4.0 H 3.9 H (0.6-1.2) mg/dL Calcium 6.9 L 7.3 L (8.4-10.2) mg/dL
[2021-06-05] MEDS: ACETAMINOPHEN 325 MG TAB PO PRN (22:21)
[2021-06-06 06:43] LABS: Basophils # (Auto) 0.1 K/mm3 (0.0-0.1); Basophils % (Auto) 1.7 % (0.0-1.8); Eosinophils # (Auto) 0.6 K/mm3 (0.0-0.4); Eosinophils % (Auto) 11.8 % (0.0-4.3); Hematocrit 27.4 % (30.3-42.9); Mean Corpuscular HGB Conc 33 % (30-34); Mean Corpuscular Volume 88 fl (79-97); Monocytes # (Auto) 0.8 K/mm3 (0.0-0.8); Monocytes % (Auto) 14.3 % (0.0-7.3); Platelet Count 250 K/mm3 (140-440); Red Blood Count 3.11 M/mm3 (3.65-5.03)
[2021-06-06 06:44] LABS: Red Cell Distribution Width 21.9 % (13.2-15.2)
[2021-06-06 06:54] LABS: Calcium 7.1 mg/dL (8.4-10.2)
[2021-06-06] MEDS: POLYETHYLENE GLYCOL 3350 17 GM POWDER PO SCH (09:46)
[2021-06-06] MEDS: PANTOPRAZOLE 40 MG TAB PO SCH (09:46)
[2021-06-06] MEDS: AMIODARONE 200 MG TAB PO SCH (09:46)
--- NOTE | 2021-06-06 10:48 | Progress Note ---
Assessment and Plan Atrial Fibrillation with Rapid Ventricular Rate Hypotension Upper GI Bleeding ABLA Hypertension Severe Anemia Thrombocytopenia ESRD on HD- MWF - continue with PPI therapy - supportive transfusions as clinically indicated, keep HgB >7g/dL - s/p EGD , s/p PRBCs - SCDs for VTE prophylaxis acutely - continue to monitor hemodynamics closely - advance diet per GI team recommendations - supplemental oxygen to keep O2 sats > 90% - prn bronchodilators (KAYA) with pulm hygiene per RT - continue HD/UF for toxin and volume clearance (M/W/F) - avoid nephrotoxins, renally dose all medications - continue mobility protocols to prevent pressure ulcers - PT/OT as tolerated - Wound care per RN/WCT - accuchecks with glycemic control per SSI for target blood glucose < 180 mg/dL - tobacco abstinence strongly counseled at the bedside - home oxygen evaluation at discharge - prn analgesia per pain score - GI & VTE prophylaxis - Flu & pneumovax per protocol - Pulmonary out patient follow up for PFTs and optimization of respiratory status - continue other care per attending / other consultants ... re-evaluate in am & prn Subjective Date of service: 06/06/21 Principal diagnosis: A-fib with RVR; Hypotension; UGIB; HTN; ABLA; Thrombocytopenia; ESRD on HD Interval history: Patient is seen today for: Atrial Fibrillation with Rapid Ventricular Rate; Hypotension; Upper GI Bleeding; HTN; ABLA; Thrombocytopenia; ESRD on HD- MWF Seen and examined at bedside; 24hour events reviewed; nursing and respiratory care staff consulted; no adverse overnight events reported to me; resting peacefully in bed; feels better; denies N/V/F/C/ chest pains, palpitations or SOB Objective Vital Signs - 12hr 06/05/21 06/06/21 06/06/21 23:00 00:00 05:00 Temperature 98.4 F 98.2 F Pulse Rate 73 60 66 Respiratory 20 16 Rate Blood Pressure Blood Pressure 168/48 153/85 [Right] O2 Sat by Pulse 98 97 Oximetry 06/06/21 08:17 Temperature 98.9 F Pulse Rate 70 Respiratory Rate Blood Pressure 168/51 Blood Pressure [Right] O2 Sat by Pulse 97 Oximetry Constitutional: no acute distress Eyes: non-icteric ENT: oropharynx moist Neck: supple, no lymphadenopathy, no JVD Effort: normal Ascultation: Bilateral: clear, diminished breath sounds Percussion: Bilateral: not dull Cardiovascular: regular rate and rhythm, other (R. Chest Permacath) Gastrointestinal: normoactive bowel sounds, soft, non-tender, non-distended (protuberant) Integumentary: other (left upper extremity AV graft) Extremities: no cyanosis, no edema, pink and warm, pulses normal Neurologic: normal mental status, non-focal exam, pupils equal and round, motor strength normal and Psychiatric: mood appropriate, affect normal CBC and BMP: 06/07/21 05:13 06/07/21 05:13 ABG, PT/INR, D-dimer: PT/INR, D-dimer PT 18.1 Sec. (12.2-14.9) H 05/29/21 03:57 INR 1.33 (0.87-1.13) H 05/29/21 03:57 Abnormal lab findings: Abnormal Labs 05/29/21 05/29/21 05/29/21 01:16 01:16 01:52 WBC RBC 1.56 L Hgb 5.3 L* Hct 15.9 L* MCV 102 H MCH 34 H RDW Plt Count 131 L Lymph % (Auto) 11.4 L [place] % (Auto) Eos % (Auto) Lymph # (Auto) 0.9 L [place] # (Auto) Eos # (Auto) Seg Neutrophils % 82.9 H Seg Neuts % (Manual) Lymphocytes % (Manual) Seg Neutrophils # Lymphocytes # (Manual) PT INR Potassium Carbon Dioxide 21 L BUN 69 H Creatinine 2.5 H Glucose 112 H Calcium 8.0 L Phosphorus Total Protein 4.8 L Albumin 3.0 L Lipase 73 H Urine WBC (Auto) Crossmatch 05/29/21 05/29/21 05/29/21 03:57 03:57 06:35 WBC RBC Hgb Hct MCV MCH RDW Plt Count Lymph % (Auto) [place] % (Auto) Eos % (Auto) Lymph # (Auto) [place] # (Auto) Eos # (Auto) Seg Neutrophils % Seg Neuts % (Manual) Lymphocytes % (Manual) Seg Neutrophils # Lymphocytes # (Manual) PT 18.1 H INR 1.33 H Potassium Carbon Dioxide BUN Creatinine Glucose Calcium Phosphorus Total Protein Albumin Lipase Urine WBC (Auto) 10.0 H Crossmatch See Detail 05/30/21 05/30/21 05/31/21 03:03 03:03 04:15 WBC 13.0 H RBC 2.05 L 3.42 L Hgb 6.2 L 9.3 L D Hct 18.7 L* 28.2 L D MCV MCH 27 L RDW 17.5 H 20.2 H Plt Count 108 L 101 L Lymph % (Auto) 8.9 L 7.3 L [place] % (Auto) 8.5 H 9.8 H Eos % (Auto) Lymph # (Auto) 0.9 L 1.0 L [place] # (Auto) 0.9 H 1.3 H Eos # (Auto) Seg Neutrophils % 81.6 H 82.0 H Seg Neuts % (Manual) Lymphocytes % (Manual) Seg Neutrophils # 8.3 H 10.7 H Lymphocytes # (Manual) PT INR Potassium 5.2 H Carbon Dioxide 18 L BUN 135 H Creatinine 4.1 H D Glucose 163 H Calcium 7.5 L Phosphorus Total Protein Albumin Lipase Urine WBC (Auto) Crossmatch 05/31/21 05/31/21 06/01/21 04:15 14:19 04:42 WBC RBC 3.03 L Hgb 8.9 L 8.5 L Hct 26.8 L 26.0 L MCV MCH RDW 20.7 H Plt Count 113 L 122 L Lymph % (Auto) [place] % (Auto) 12.6 H Eos % (Auto) 4.5 H Lymph # (Auto) [place] # (Auto) 1.1 H Eos # (Auto) Seg Neutrophils % Seg Neuts % (Manual) Lymphocytes % (Manual) Seg Neutrophils # Lymphocytes # (Manual) PT INR Potassium Carbon Dioxide BUN 46 H Creatinine 2.6 H Glucose 135 H Calcium 7.6 L Phosphorus Total Protein Albumin Lipase Urine WBC (Auto) Crossmatch 06/01/21 06/02/21 06/02/21 04:42 07:24 07:24 WBC RBC 3.18 L Hgb 9.1 L Hct 27.5 L MCV MCH RDW 20.2 H Plt Count 138 L Lymph % (Auto) 6.7 L [place] % (Auto) 15.1 H Eos % (Auto) Lymph # (Auto) 0.6 L [place] # (Auto) 1.3 H Eos # (Auto) Seg Neutrophils % 75.7 H Seg Neuts % (Manual) Lymphocytes % (Manual) Seg Neutrophils # Lymphocytes # (Manual) PT INR Potassium Carbon Dioxide BUN 56 H 21 H Creatinine 3.9 H 2.3 H Glucose 102 H Calcium 7.3 L 6.9 L Phosphorus 4.80 H Total Protein Albumin Lipase Urine WBC (Auto) Crossmatch 06/03/21 06/03/21 06/04/21 05:49 05:49 04:53 WBC RBC 2.97 L 2.86 L Hgb 8.6 L 8.3 L Hct 25.7 L 24.9 L MCV MCH RDW 20.5 H 20.6 H Plt Count Lymph % (Auto) [place] % (Auto) 15.6 H 14.8 H Eos % (Auto) 6.8 H 7.5 H Lymph # (Auto) 1.0 L 1.1 L [place] # (Auto) 1.0 H 0.9 H Eos # (Auto) 0.5 H Seg Neutrophils % Seg Neuts % (Manual) Lymphocytes % (Manual) Seg Neutrophils # Lymphocytes # (Manual) PT INR Potassium Carbon Dioxide BUN 41 H Creatinine 4.1 H D Glucose Calcium 6.7 L Phosphorus Total Protein Albumin Lipase Urine WBC (Auto) Crossmatch 06/04/21 06/05/21 06/05/21 04:53 05:05 05:05 WBC RBC 2.96 L Hgb 8.3 L Hct 26.2 L MCV MCH RDW 21.9 H Plt Count Lymph % (Auto) [place] % (Auto) Eos % (Auto) Lymph # (Auto) [place] # (Auto) Eos # (Auto) Seg Neutrophils % Seg Neuts % (Manual) 87.0 H Lymphocytes % (Manual) 9.0 L Seg Neutrophils # Lymphocytes # (Manual) 0.5 L PT INR Potassium 3.5 L Carbon Dioxide BUN 27 H 35 H Creatinine 3.2 H 4.0 H Glucose Calcium 6.7 L 6.9 L Phosphorus Total Protein Albumin Lipase Urine WBC (Auto) Crossmatch 06/05/21 06/06/21 06/06/21 08:43 06:02 06:02 WBC RBC 3.11 L Hgb 9.0 L Hct 27.4 L MCV MCH RDW 21.9 H Plt Count Lymph % (Auto) [place] % (Auto) 14.3 H Eos % (Auto) 11.8 H Lymph # (Auto) 1.0 L [place] # (Auto) Eos # (Auto) 0.6 H Seg Neutrophils % Seg Neuts % (Manual) Lymphocytes % (Manual) Seg Neutrophils # Lymphocytes # (Manual) PT INR Potassium Carbon Dioxide BUN 34 H 33 H Creatinine 3.9 H 4.1 H Glucose Calcium 7.3 L 7.1 L Phosphorus Total Protein Albumin Lipase Urine WBC (Auto) Crossmatch Allied health notes reviewed: nursing
--- NOTE | 2021-06-06 11:36 | Progress Note ---
Assessment and Plan - Patient Problems (1) Atrial fibrillation with rapid ventricular response Current Visit: Yes Status: Acute Plan to address problem: 80-year-old woman admitted with severe anemia, hematocrit of 15, suspected GI bleeding. With blood transfusions and further management, anemia is now stable, hematocrit today is 27. Hospital course has been notable for paroxysmal atrial fibrillation, which has been managed with medical therapy. Continue judicious use of amiodarone for atrial fibrillation suppression. Due to the presentation with severe anemia, patient is not a candidate for anticoagulation now or in the near term. Subjective Date of service: 06/06/21 Principal diagnosis: Duodenal ulcer Interval history: No new cardiac complaints, no new cardiac events reported. Dialysis is planned for today. Objective Vital Signs Temp Pulse Resp BP BP Pulse Ox 06/06/21 08:17 98.9 F 70 168/51 97 06/06/21 08:00 77 06/06/21 05:00 98.2 F 66 16 153/85 97 06/06/21 00:00 98.4 F 60 20 168/48 98 06/05/21 23:00 73 06/05/21 22:00 98 06/05/21 19:47 98.7 F 60 16 123/54 98 06/05/21 15:01 98.2 F 61 16 167/52 100 06/05/21 11:37 98.7 F 65 16 167/47 98 - Physical Examination General: No Apparent Distress HEENT: Positive: PERRL Neck: Positive: neck supple Cardiac: Positive: Reg Rate and Rhythm Lungs: Positive: clear to auscultation Neuro: Positive: Grossly Intact Abdomen: Positive: Soft Extremities: Absent: edema - Labs and Meds CBC 06/06/21 Range/Units 06:02 WBC 5.5 (4.5-11.0) K/mm3 RBC 3.11 L (3.65-5.03) M/mm3 Hgb 9.0 L (10.1-14.3) gm/dl Hct 27.4 L (30.3-42.9) % Plt Count 250 (140-440) K/mm3 Lymph # (Auto) 1.0 L (1.2-5.4) K/mm3 [place] # (Auto) 0.8 (0.0-0.8) K/mm3 Eos # (Auto) 0.6 H (0.0-0.4) K/mm3 Baso # (Auto) 0.1 (0.0-0.1) K/mm3 Comprehensive Metabolic Panel 06/06/21 Range/Units 06:02 Sodium 141 (137-145) mmol/L Potassium 3.8 (3.6-5.0) mmol/L Chloride 106.1 (98-107) mmol/L Carbon Dioxide 23 (22-30) mmol/L BUN 33 H (7-17) mg/dL Creatinine 4.1 H (0.6-1.2) mg/dL Glucose 86 (65-100) mg/dL Calcium 7.1 L (8.4-10.2) mg/dL - Allied health notes Allied health notes reviewed: nursing
[2021-06-06] MEDS: EPOETIN ALFA-EPBX 20,000 UNIT/1 ML VIAL IV PRN (12:15)
--- NOTE | 2021-06-06 15:25 | Progress Note ---
Assessment and Plan Assessment * End stage renal disease (Outpatient HD at [facility]) * Symptomatic anemia of ABL * GI bleed --EGD: Duodenal ulcer (May 31) * Atrial fibrillation with RVR * Azotemia - multifactorial, 2/2 GI bleed vs ESRD * Hypertension * Secondary hyperparathyroidism Plan: * Continue MWF schedule -UF a tolerated * Transfuse pRBC prn * GI recommendations noted - f/u as outpatient * Rate control per cardiology * Epogen prn * Dose medications for renal function Subjective Date of service: 06/06/21 Principal diagnosis: Duodenal ulcer Interval history: Patient had hemodialysis treatment this morning. Shortness of breath is better. No nausea or vomiting. Objective - Vital Signs Vital signs: Vital Signs - 12hr 06/06/21 06/06/21 06/06/21 05:00 08:00 08:17 Temperature 98.2 F 98.9 F Pulse Rate 66 77 70 Respiratory 16 Rate Blood Pressure 168/51 Blood Pressure 153/85 [Right] O2 Sat by Pulse 97 97 Oximetry O2 Sat by Pulse Oximetry [ Bilateral] 06/06/21 06/06/21 06/06/21 10:00 10:10 10:30 Temperature 98.3 F Pulse Rate 100 H 57 L Respiratory 16 Rate Blood Pressure 114/60 151/69 Blood Pressure [Right] O2 Sat by Pulse 95 Oximetry O2 Sat by Pulse 97 Oximetry [ Bilateral] 06/06/21 06/06/21 06/06/21 10:45 11:00 11:15 Temperature Pulse Rate 55 L 54 L 63 Respiratory Rate Blood Pressure 150/62 139/59 148/64 Blood Pressure [Right] O2 Sat by Pulse Oximetry O2 Sat by Pulse Oximetry [ Bilateral] 06/06/21 06/06/21 06/06/21 11:30 11:45 12:00 Temperature Pulse Rate 59 L 62 65 Respiratory Rate Blood Pressure 137/66 157/61 146/56 Blood Pressure [Right] O2 Sat by Pulse Oximetry O2 Sat by Pulse Oximetry [ Bilateral] - General Appearance General appearance: well-developed, well-nourished, appears stated age EENT: PERRL, mucous membranes moist Neck: no JVD, no thyromegaly, no carotid bruit, supple Respiratory: Present: Rales (Fine basal crackles) Cardiology: irregularly irregular Gastrointestinal: normal, normoactive bowel sounds Integumentary: no rash, other (No edema. AV fistula left upper arm. Good bruit and thrill. Bruising noted in her left upper arm) - Lab 06/06/21 06:02 06/06/21 06:02 Most recent lab results Calcium 7.1 mg/dL (8.4-10.2) L 06/06/21 06:02 Phosphorus 4.80 mg/dL (2.5-4.5) H 06/01/21 04:42 Magnesium 1.70 mg/dL (1.7-2.3) 06/01/21 04:42 Medications & Allergies - Medications Allergies/Adverse Reactions: Allergies celecoxib [From Celebrex] Allergy (Verified 05/30/21 12:42) FACE SWELLING sulfamethoxazole [From Bactrim] Allergy (Verified 05/30/21 12:42) Swelling trimethoprim [From Bactrim] Allergy (Verified 05/30/21 12:42) Swelling Home Medications: Home Medications Medication Instructions Recorded Confirmed Last Taken Type Amiodarone [Cordarone 200 MG TAB] 100 mg PO QDAY #30 tablet 06/03/21 Unknown Rx Midodrine [Proamatine] 5 mg PO TID@0800,1200,1600 #60 06/03/21 Unknown Rx tablet Pantoprazole [Protonix TAB] 40 mg PO DAILY #30 tablet 06/03/21 Unknown Rx Active Medications: Generic Name Dose Route Start Last Admin Trade Name Freq PRN Reason Stop Dose Admin Acetaminophen 650 mg 05/29/21 05:28 06/05/21 22:21 Acetaminophen 325 Mg Tab PO 650 mg Q4H PRN Administration Pain MILD(1-3)/Fever >100.5/LOVE Albumin Human 25 gm 05/29/21 16:05 Albumin Human 25% (25 Gm/100 Ml) Inj IV ASHLEY PRN Hypotension Amiodarone HCl 100 mg 06/04/21 10:00 06/06/21 09:46 Amiodarone 200 Mg Tab PO Not Given QDAY ELAINE Epoetin Salas-epbx 20,000 unit 05/29/21 16:05 06/06/21 12:15 Epoetin Salas-Epbx 20,000 Unit/1 Ml Vial IV 20,000 unit ASHLEY PRN Administration hemodialysis Hydrocortisone Acetate 1 applic 05/30/21 14:00 Hydrocortisone 1% Cream 28.4gm TP Q8H PRN Skin Irritation Sodium Chloride 100 mls @ 999 mls/hr 06/01/21 10:00 Nacl 0.9% IV ASHLEY PRN Hypotension Metoprolol Tartrate 2.5 mg 05/30/21 16:00 Metoprolol Tartrate 5 Mg/5 Ml Inj IV Q6HR PRN HR >120 Morphine Sulfate 2 mg 05/29/21 05:28 06/01/21 10:52 Morphine 2 Mg/1 Ml Inj IV 2 mg Q4H PRN Administration Pain, Moderate (4-6) Ondansetron HCl 4 mg 05/29/21 05:28 06/01/21 17:15 Ondansetron 4 Mg/2 Ml Inj IV 4 mg Q8H PRN Administration Nausea And Vomiting Pantoprazole Sodium 40 mg 06/02/21 10:00 06/06/21 09:46 Pantoprazole 40 Mg Tab PO Not Given DAILY ELAINE Polyethylene Glycol 17 gm 06/04/21 16:00 06/06/21 09:46 Polyethylene Glycol 3350 17 Gm Powder PO Not Given QDAY ELAINE Sodium Chloride 10 ml 05/29/21 10:00 06/06/21 09:46 Sodium Chloride 0.9% 10 Ml Flush Syringe IV Not Given BID ELAINE Sodium Chloride 10 ml 05/29/21 05:28 Sodium Chloride 0.9% 10 Ml Flush Syringe IV PRN PRN LINE FLUSH
--- NOTE | 2021-06-06 16:40 | Progress Note ---
Assessment and Plan This is a 80-year-old female with known past medical history of HTN, ESRD on HD initially admitted to floor for severe anemia 2/2 of possible GIB. Patient was transferred in the ICU on 05/30 due to new onset atrial fibrillation, HR sustaini ng in the 140s. Hospital Course to Date: 05/30/2021- patient went into A. fib with rapid ventricular rate, cardiology consulted. Started amiodarone drip, transfer to ICU for close observation . Unable to start anticoagulation due to severe anemia and GI bleeding.. Endoscopy rescheduled for tomorrow Continue to monitor in ICU 05/31: S/p EGD this am, duodenal bulb ulcer noted which was clipped and bx, otherwise unremarkable EGD per GI. Patient is hypotensive this am post procedure, probably related to sedation vs hypovolemia. S/p 250mg of NS bolus with some improvement, and PO midodrine added. Amiodorone gtt is on hold this am due to bradycardia and hypotension. SR with a HR in the low 50s noted on the monitor, 12lead EKg ordered to confirm conversion. Patient's H&H is stable this am, GI recommendations noted. Patient is tolerating clear liquid diet, continue PPI, and trend H&H Q8hr, transfuse if hgb is less than 7. 06/01: Remains stable, on RA. SB noted on the monitor with wide pulse pressure. No s/s of any active bleeding overnight, H&H remains stable. D/w Cardio patient is stable for transfer to Telemetry. Plan for HD today. Continue PRN analgesia for pain management, PT eval and treat pending. 06/02 patient is awake and alert. Eating poorly. Status post PRBC transfusion. GI and cardiology notes reviewed. Family in the room. PT evaluation is pending 06/03: seen patient during HD. she states that she lives alone and unable to get up from bed. c/o lightheadedness, patient strongly wants to go to [facility]. CM to follow [facility]. 06/04: resting on bed, pending rehab, clinically stable. family at bedside. 06/05 patient is awake and alert and offers no specific complaints./Awaiting subacute rehab placement 06/06: clinically stable, pending [facility] placement Assessment and Plan #Atrial Fibrillation with Rapid Ventricular Rate - Went into Afib with RVR on the floor, HR as high as 140s - Unclear if patient has a history, most likely new onset - Cardiology on consult, appreciated recommendations - s/p Amiodorone gtt - 05/31 Coverted to Sinus, EKG confirmed SB - Continue PRN IV metoprolol for HR greater than 120 - Patient not a candidate for Anticoagulation at this time due to severe anemia and possible GIB -Reviewed cardiology note Due to persistent bradycardia, AV yasmin blockers have been discontinued - CCM is also consulted, appreciate recommendations #Hypotension-improved - probably 2/2 hypovolemia vs sedation post EGD procedure - Wide pulse pressure, patient is asymptomatic - Continue Midodrine - Continue to trend H&H, transfuse if hbg less than 7 - Continue blood pressure monitor per protocol - Maintain SBP less than 160 #Severe Anemia H&H stable posttransfusion #Thrombocytopenia #Melena #Status post EGD - Presented with Hgb of 5.3 and Hct of 15.9 - Stool guaiac is positive in the ED - s/p 2units of PRBCs - GI consulted, appreciate recommendations - 05/31 s/p EGD with endoscopic clipping which revealed 1cm Duodenal bulb ulcer (clipped x 2), Cold bx antrum for H pylori. Normal stomach and esophagus - No s/s of any active bleeding - H&H remains stable - Continue PPI- Protonix BID - On Full liquid diet, advance as tolerated - Will continue to trend CBC - Transfuse if Hgb is less than 7 -Resume aspirin on 06/09 per review of GI note #ESRD on HD- MWF - Patient is anuric - Nephrology on consult, appreciated recommendation - Continue HD per Nephro - Strict intake and output - Avoid nephrotoxic medications; Renally dose medications - Monitor and replace electrolytes as needed #GI/DVT Prophylaxis - PPI- IV protonix - SCD for DVT prophylaxis. Subjective Date of service: 06/06/21 Principal diagnosis: Duodenal ulcer Interval history: Patient seen and examined pending placement no acute event o/n vitals noted and stable Objective - Exam Narrative Exam: General appearance: Present: no acute distress - EENT Eyes: PERRL, EOM intact ENT: hearing intact, clear oral mucosa - Neck Neck: supple, normal ROM - Respiratory Respiratory effort: normal Respiratory: bilateral: CTA - Breasts Breasts: deferred - Cardiovascular Rhythm: irregularly irregular Heart Sounds: Present: S1 & S2 Extremities: No edema - Gastrointestinal General gastrointestinal: Present: soft, non-tender Rectal Exam: deferred - Genitourinary Female genitourinary: deferred - Integumentary Integumentary: clear - Neurologic Neurologic: no focal deficits, moves all extremities - Psychiatric Psychiatric: appropriate mood/affect - Constitutional Vitals: Vital Signs - 12hr 06/06/21 06/06/21 06/06/21 05:00 08:00 08:17 Temperature 98.2 F 98.9 F Pulse Rate 66 77 70 Respiratory 16 Rate Blood Pressure 168/51 Blood Pressure 153/85 [Right] O2 Sat by Pulse 97 97 Oximetry O2 Sat by Pulse Oximetry [ Bilateral] 06/06/21 06/06/21 06/06/21 10:00 10:10 10:30 Temperature 98.3 F Pulse Rate 100 H 57 L Respiratory 16 Rate Blood Pressure 114/60 151/69 Blood Pressure [Right] O2 Sat by Pulse 95 Oximetry O2 Sat by Pulse 97 Oximetry [ Bilateral] 06/06/21 06/06/21 06/06/21 10:45 11:00 11:15 Temperature Pulse Rate 55 L 54 L 63 Respiratory Rate Blood Pressure 150/62 139/59 148/64 Blood Pressure [Right] O2 Sat by Pulse Oximetry O2 Sat by Pulse Oximetry [ Bilateral] 06/06/21 06/06/21 06/06/21 11:30 11:45 12:00 Temperature Pulse Rate 59 L 62 65 Respiratory Rate Blood Pressure 137/66 157/61 146/56 Blood Pressure [Right] O2 Sat by Pulse Oximetry O2 Sat by Pulse Oximetry [ Bilateral] 06/06/21 15:39 Temperature 97.4 F L Pulse Rate 68 Respiratory Rate Blood Pressure 124/36 Blood Pressure [Right] O2 Sat by Pulse 98 Oximetry O2 Sat by Pulse Oximetry [ Bilateral] - Labs CBC & Chem 7: 06/07/21 05:13 06/07/21 05:13 Labs: Abnormal lab results 06/06/21 06/06/21 Range/Units 06:02 06:02 RBC 3.11 L (3.65-5.03) M/mm3 Hgb 9.0 L (10.1-14.3) gm/dl Hct 27.4 L (30.3-42.9) % RDW 21.9 H (13.2-15.2) % [place] % (Auto) 14.3 H (0.0-7.3) % Eos % (Auto) 11.8 H (0.0-4.3) % Lymph # (Auto) 1.0 L (1.2-5.4) K/mm3 Eos # (Auto) 0.6 H (0.0-0.4) K/mm3 BUN 33 H (7-17) mg/dL Creatinine 4.1 H (0.6-1.2) mg/dL Calcium 7.1 L (8.4-10.2) mg/dL
[2021-06-06] MEDS: ACETAMINOPHEN 325 MG TAB PO PRN (23:34)
[2021-06-07 05:46] LABS: Basophils # (Auto) 0.1 K/mm3 (0.0-0.1); Basophils % (Auto) 1.4 % (0.0-1.8); Eosinophils # (Auto) 0.5 K/mm3 (0.0-0.4); Eosinophils % (Auto) 8.5 % (0.0-4.3); Hematocrit 28.2 % (30.3-42.9); Hemoglobin 8.9 gm/dl (10.1-14.3); Lymphocytes # (Auto) 1.2 K/mm3 (1.2-5.4); Lymphocytes % (Auto) 22.7 % (13.4-35.0); Mean Corpuscular HGB Conc 32 % (30-34); Mean Corpuscular Volume 89 fl (79-97); Monocytes # (Auto) 0.6 K/mm3 (0.0-0.8); Monocytes % (Auto) 11.6 % (0.0-7.3); Platelet Count 214 K/mm3 (140-440); Red Blood Count 3.16 M/mm3 (3.65-5.03)
[2021-06-07 05:54] LABS: Red Cell Distribution Width 22.4 % (13.2-15.2)
--- NOTE | 2021-06-07 09:29 | Progress Note ---
Assessment and Plan Assessment and plan: This is a 80-year-old female with known past medical history of HTN, ESRD on HD initially admitted to floor for severe anemia 2/2 of possible GIB. Patient was transferred in the ICU on 05/30 due to new onset atrial fibrillation, HR sustaining in the 140s. Hospital Course to Date: 05/30/2021- patient went into A. fib with rapid ventricular rate, cardiology consulted. Started amiodarone drip, transfer to ICU for close observation . Unable to start anticoagulation due to severe anemia and GI bleeding.. Endoscopy rescheduled for tomorrow Continue to monitor in ICU 05/31: S/p EGD this am, duodenal bulb ulcer noted which was clipped and bx, otherwise unremarkable EGD per GI. Patient is hypotensive this am post procedure, probably related to sedation vs hypovolemia. S/p 250mg of NS bolus with some improvement, and PO midodrine added. Amiodorone gtt is on hold this am due to bradycardia and hypotension. SR with a HR in the low 50s noted on the monitor, 12lead EKg ordered to confirm conversion. Patient's H&H is stable this am, GI recommendations noted. Patient is tolerating clear liquid diet, continue PPI, and trend H&H Q8hr, transfuse if hgb is less than 7. 06/01: Remains stable, on RA. SB noted on the monitor with wide pulse pressure. No s/s of any active bleeding overnight, H&H remains stable. D/w Cardio patient is stable for transfer to Telemetry. Plan for HD today. Continue PRN analgesia for pain management, PT eval and treat pending. 06/02 patient is awake and alert. Eating poorly. Status post PRBC transfusion. GI and cardiology notes reviewed. Family in the room. PT evaluation is pending 06/03: seen patient during HD. she states that she lives alone and unable to get up from bed. c/o lightheadedness, patient strongly wants to go to [facility]. CM to follow [facility]. 06/04: resting on bed, pending rehab, clinically stable. family at bedside. 06/05 patient is awake and alert and offers no specific complaints./Awaiting subacute rehab placement 06/06: clinically stable, pending [facility] placement 06/07; pending subacute rehab/SNF placement COVID-19 test is negative Patient is stable for discharge Assessment and Plan #Atrial Fibrillation with Rapid Ventricular Rate - Went into Afib with RVR on the floor, HR as high as 140s - Unclear if patient has a history, most likely new onset - Cardiology on consult, appreciated recommendations - s/p Amiodorone gtt - 05/31 Coverted to Sinus, EKG confirmed SB - Continue PRN IV metoprolol for HR greater than 120 - Patient not a candidate for Anticoagulation at this time due to severe anemia and possible GIB -Reviewed cardiology note Due to persistent bradycardia, AV yasmin blockers have been discontinued - CCM is also consulted, appreciate recommendations #Hypotension-improved - probably 2/2 hypovolemia vs sedation post EGD procedure - Wide pulse pressure, patient is asymptomatic - Continue Midodrine - Continue to trend H&H, transfuse if hbg less than 7 - Continue blood pressure monitor per protocol - Maintain SBP less than 160 #Severe Anemia H&H stable posttransfusion #Thrombocytopenia #Melena #Status post EGD - Presented with Hgb of 5.3 and Hct of 15.9 - Stool guaiac is positive in the ED - s/p 2units of PRBCs - GI consulted, appreciate recommendations - 05/31 s/p EGD with endoscopic clipping which revealed 1cm Duodenal bulb ulcer (clipped x 2), Cold bx antrum for H pylori. Normal stomach and esophagus - No s/s of any active bleeding - H&H remains stable - Continue PPI- Protonix BID - On Full liquid diet, advance as tolerated - Will continue to trend CBC - Transfuse if Hgb is less than 7 -Resume aspirin on 06/09 per review of GI note #ESRD on HD- MWF - Patient is anuric - Nephrology on consult, appreciated recommendation - Continue HD per Nephro - Strict intake and output - Avoid nephrotoxic medications; Renally dose medications - Monitor and replace electrolytes as needed #GI/DVT Prophylaxis - PPI- IV protonix - SCD for DVT prophylaxis. Awaiting placement DC planning per case management Patient is stable for discharge History Interval history: I have seen and examined the patient at the bedside Patient's chart and medications reviewed Patient is alert awake and oriented, cheerful Responding appropriately, patient's daughter at the bedside Patient has no new complaints anxious to be discharged Pending placement Vital signs reviewed Hospitalist Physical - Constitutional Vitals: Temp Pulse Resp BP Pulse Ox 98.3 F 57 L 18 154/39 95 06/06/21 23:41 06/07/21 05:00 06/06/21 23:41 06/07/21 04:32 06/07/21 04:32 General appearance: Present: no acute distress, well-nourished - EENT Eyes: Present: PERRL, EOM intact - Neck Neck: Present: supple, normal ROM - Respiratory Respiratory effort: normal Respiratory: bilateral: diminished, negative: rales, rhonchi, wheezing - Cardiovascular Rhythm: regular Heart Sounds: Present: S1 & S2 - Extremities Extremities: no ischemia, No edema - Abdominal General gastrointestinal: soft, non-tender, non-distended, normal bowel sounds - Integumentary Integumentary: Present: clear, warm - Psychiatric Psychiatric: appropriate mood/affect, cooperative - Neurologic Neurologic: CNII-XII intact, moves all extremities Results - Labs CBC & Chem 7: 06/07/21 05:13 06/07/21 05:13 Labs: Laboratory Last Values WBC 5.5 K/mm3 (4.5-11.0) 06/07/21 05:13 RBC 3.16 M/mm3 (3.65-5.03) L 06/07/21 05:13 Hgb 8.9 gm/dl (10.1-14.3) L 06/07/21 05:13 Hct 28.2 % (30.3-42.9) L 06/07/21 05:13 MCV 89 fl (79-97) 06/07/21 05:13 MCH 28 pg (28-32) 06/07/21 05:13 MCHC 32 % (30-34) 06/07/21 05:13 RDW 22.4 % (13.2-15.2) H 06/07/21 05:13 Plt Count 214 K/mm3 (140-440) 06/07/21 05:13 Lymph % (Auto) 22.7 % (13.4-35.0) 06/07/21 05:13 [place] % (Auto) 11.6 % (0.0-7.3) H 06/07/21 05:13 Eos % (Auto) 8.5 % (0.0-4.3) H 06/07/21 05:13 Baso % (Auto) 1.4 % (0.0-1.8) 06/07/21 05:13 Lymph # (Auto) 1.2 K/mm3 (1.2-5.4) 06/07/21 05:13 [place] # (Auto) 0.6 K/mm3 (0.0-0.8) 06/07/21 05:13 Eos # (Auto) 0.5 K/mm3 (0.0-0.4) H 06/07/21 05:13 Baso # (Auto) 0.1 K/mm3 (0.0-0.1) 06/07/21 05:13 Add Manual Diff Complete 06/05/21 05:05 Total Counted 100 06/05/21 05:05 Seg Neutrophils % 55.8 % (40.0-70.0) 06/07/21 05:13 Seg Neuts % (Manual) 87.0 % (40.0-70.0) H 06/05/21 05:05 Band Neutrophils % 0 % 06/05/21 05:05 Lymphocytes % (Manual) 9.0 % (13.4-35.0) L 06/05/21 05:05 Reactive Lymphs % (Man) 0 % 06/05/21 05:05 Monocytes % (Manual) 4.0 % (0.0-7.3) 06/05/21 05:05 Eosinophils % (Manual) 0 % (0.0-4.3) 06/05/21 05:05 Basophils % (Manual) 0 % (0.0-1.8) 06/05/21 05:05 Metamyelocytes % 0 % 06/05/21 05:05 Myelocytes % 0 % 06/05/21 05:05 Promyelocytes % 0 % 06/05/21 05:05 Blast Cells % 0 % 06/05/21 05:05 Nucleated RBC % Not Reportable 06/05/21 05:05 Seg Neutrophils # 3.1 K/mm3 (1.8-7.7) 06/07/21 05:13 Seg Neutrophils # Man 4.9 K/mm3 (1.8-7.7) 06/05/21 05:05 Band Neutrophils # 0.0 K/mm3 06/05/21 05:05 Lymphocytes # (Manual) 0.5 K/mm3 (1.2-5.4) L 06/05/21 05:05 Abs React Lymphs (Man) 0.0 K/mm3 06/05/21 05:05 Monocytes # (Manual) 0.2 K/mm3 (0.0-0.8) 06/05/21 05:05 Eosinophils # (Manual) 0.0 K/mm3 (0.0-0.4) 06/05/21 05:05 Basophils # (Manual) 0.0 K/mm3 (0.0-0.1) 06/05/21 05:05 Metamyelocytes # 0.0 K/mm3 06/05/21 05:05 Myelocytes # 0.0 K/mm3 06/05/21 05:05 Promyelocytes # 0.0 K/mm3 06/05/21 05:05 Blast Cells # 0.0 K/mm3 06/05/21 05:05 WBC Morphology Not Reportable 06/05/21 05:05 Hypersegmented Neuts Not Reportable 06/05/21 05:05 Hyposegmented Neuts Not Reportable 06/05/21 05:05 Hypogranular Neuts Not Reportable 06/05/21 05:05 Smudge Cells Not Reportable 06/05/21 05:05 Toxic Granulation Not Reportable 06/05/21 05:05 Toxic Vacuolation Not Reportable 06/05/21 05:05 Dohle Bodies Not Reportable 06/05/21 05:05 Pelger-Huet Anomaly Not Reportable 06/05/21 05:05 Anna Marie Rods Not Reportable 06/05/21 05:05 Platelet Estimate Consistent w auto 06/05/21 05:05 Clumped Platelets Not Reportable 06/05/21 05:05 Plt Clumps, EDTA Not Reportable 06/05/21 05:05 Large Platelets Not Reportable 06/05/21 05:05 Giant Platelets Not Reportable 06/05/21 05:05 Platelet Satelliting Not Reportable 06/05/21 05:05 Plt Morphology Comment Not Reportable 06/05/21 05:05 RBC Morphology Not Reportable 06/05/21 05:05 Dimorphic RBCs Not Reportable 06/05/21 05:05 Polychromasia Few 06/05/21 05:05 Hypochromasia Not Reportable 06/05/21 05:05 Poikilocytosis Not Reportable 06/05/21 05:05 Anisocytosis Not Reportable 06/05/21 05:05 Microcytosis Not Reportable 06/05/21 05:05 Macrocytosis Not Reportable 06/05/21 05:05 Spherocytes Not Reportable 06/05/21 05:05 Pappenheimer Bodies Not Reportable 06/05/21 05:05 Sickle Cells Not Reportable 06/05/21 05:05 Target Cells Not Reportable 06/05/21 05:05 Tear Drop Cells Few 06/05/21 05:05 Ovalocytes Few 06/05/21 05:05 Helmet Cells Not Reportable 06/05/21 05:05 [place] Bodies Not Reportable 06/05/21 05:05 [place] Rings Not Reportable 06/05/21 05:05 [place] Cells Not Reportable 06/05/21 05:05 Bite Cells Not Reportable 06/05/21 05:05 Crenated Cell Not Reportable 06/05/21 05:05 Elliptocytes Few 06/05/21 05:05 Acanthocytes (Spur) Not Reportable 06/05/21 05:05 Rouleaux Not Reportable 06/05/21 05:05 Hemoglobin C Crystals Not Reportable 06/05/21 05:05 Schistocytes Not Reportable 06/05/21 05:05 Malaria parasites Not Reportable 06/05/21 05:05 [place] Bodies Not Reportable 06/05/21 05:05 Hem Pathologist Commnt No 06/05/21 05:05 PT 18.1 Sec. (12.2-14.9) H 05/29/21 03:57 INR 1.33 (0.87-1.13) H 05/29/21 03:57 APTT 32.3 Sec. (24.2-36.6) 05/29/21 03:57 Sodium 137 mmol/L (137-145) 06/07/21 05:13 Potassium 3.6 mmol/L (3.6-5.0) 06/07/21 05:13 Chloride 99.4 mmol/L (98-107) 06/07/21 05:13 Carbon Dioxide 26 mmol/L (22-30) 06/07/21 05:13 Anion Gap 15 mmol/L 06/07/21 05:13 BUN 20 mg/dL (7-17) H 06/07/21 05:13 Creatinine 2.9 mg/dL (0.6-1.2) H 06/07/21 05:13 Estimated GFR 16 ml/min 06/07/21 05:13 BUN/Creatinine Ratio 7 % 06/07/21 05:13 Glucose 88 mg/dL (65-100) 06/07/21 05:13 POC Glucose 99 mg/dL (70-105) 05/31/21 11:55 Lactic Acid 1.70 mmol/L (0.7-2.0) 05/31/21 04:15 Calcium 7.0 mg/dL (8.4-10.2) L 06/07/21 05:13 Phosphorus 4.80 mg/dL (2.5-4.5) H 06/01/21 04:42 Magnesium 1.70 mg/dL (1.7-2.3) 06/01/21 04:42 Total Bilirubin 0.20 mg/dL (0.1-1.2) 05/29/21 01:16 AST 15 units/L (5-40) 05/29/21 01:16 ALT 15 units/L (7-56) 05/29/21 01:16 Alkaline Phosphatase 35 units/L (35-129) 05/29/21 01:16 Total Protein 4.8 g/dL (6.3-8.2) L 05/29/21 01:16 Albumin 3.0 g/dL (3.9-5) L 05/29/21 01:16 Albumin/Globulin Ratio 1.7 % 05/29/21 01:16 Lipase 73 units/L (13-60) H 05/29/21 01:52 Urine Color Straw (Yellow) 05/29/21 06:35 Urine Turbidity Clear (Clear) 05/29/21 06:35 Urine pH 7.0 (5.0-7.0) 05/29/21 06:35 Ur Specific [place] 1.011 (1.003-1.030) 05/29/21 06:35 Urine Protein <15 mg/dl mg/dL (Negative) 05/29/21 06:35 Urine Glucose (UA) Neg mg/dL (Negative) 05/29/21 06:35 Urine Ketones Neg mg/dL (Negative) 05/29/21 06:35 Urine Blood Sm (Negative) 05/29/21 06:35 Urine Nitrite Neg (Negative) 05/29/21 06:35 Urine Bilirubin Neg (Negative) 05/29/21 06:35 Urine Urobilinogen < 2.0 mg/dL (<2.0) 05/29/21 06:35 Ur Leukocyte Esterase Sm (Negative) 05/29/21 06:35 Urine WBC (Auto) 10.0 /HPF (0.0-6.0) H 05/29/21 06:35 Urine RBC (Auto) 1.0 /HPF (0.0-6.0) 05/29/21 06:35 U Epithel Cells (Auto) < 1.0 /HPF (0-13.0) 05/29/21 06:35 Urine Mucus Few /HPF 05/29/21 06:35 Urine Yeast (Budding) Few /HPF 05/29/21 06:35 Hepatitis A IgM Ab Nonreactive (NonReactive) 05/30/21 03:03 Hep Bs Antigen Non-reactive (Negative) 05/30/21 03:03 Hep B Core IgM Ab Non-reactive (NonReactive) 05/30/21 03:03 Hepatitis C Antibody Non-reactive (NonReactive) 05/30/21 03:03 Blood Type A POSITIVE 05/29/21 03:57 Antibody Screen Negative 05/29/21 03:57 Crossmatch See Detail 05/29/21 03:57 Benjamin/IV: Voiding Method Bedpan Active Medications - Current Medications Current Medications: Generic Name Dose Route Start Last Admin Trade Name Freq PRN Reason Stop Dose Admin Acetaminophen 650 mg 05/29/21 05:28 06/06/21 23:34 Acetaminophen 325 Mg Tab PO 650 mg Q4H PRN Administration Pain MILD(1-3)/Fever >100.5/LOVE Albumin Human 25 gm 05/29/21 16:05 Albumin Human 25% (25 Gm/100 Ml) Inj IV ASHLEY PRN Hypotension Amiodarone HCl 100 mg 06/04/21 10:00 06/06/21 09:46 Amiodarone 200 Mg Tab PO Not Given QDAY ELAINE Epoetin Salas-epbx 20,000 unit 05/29/21 16:05 06/06/21 12:15 Epoetin Salas-Epbx 20,000 Unit/1 Ml Vial IV 20,000 unit ASHLEY PRN Administration hemodialysis Hydrocortisone Acetate 1 applic 05/30/21 14:00 Hydrocortisone 1% Cream 28.4gm TP Q8H PRN Skin Irritation Sodium Chloride 100 mls @ 999 mls/hr 06/01/21 10:00 Nacl 0.9% IV ASHLEY PRN Hypotension Metoprolol Tartrate 2.5 mg 05/30/21 16:00 Metoprolol Tartrate 5 Mg/5 Ml Inj IV Q6HR PRN HR >120 Morphine Sulfate 2 mg 05/29/21 05:28 06/01/21 10:52 Morphine 2 Mg/1 Ml Inj IV 2 mg Q4H PRN Administration Pain, Moderate (4-6) Ondansetron HCl 4 mg 05/29/21 05:28 06/01/21 17:15 Ondansetron 4 Mg/2 Ml Inj IV 4 mg Q8H PRN Administration Nausea And Vomiting Pantoprazole Sodium 40 mg 06/02/21 10:00 06/06/21 09:46 Pantoprazole 40 Mg Tab PO Not Given DAILY ELAINE Polyethylene Glycol 17 gm 06/04/21 16:00 06/06/21 09:46 Polyethylene Glycol 3350 17 Gm Powder PO Not Given QDAY ELAINE Sodium Chloride 10 ml 05/29/21 10:00 06/06/21 23:34 Sodium Chloride 0.9% 10 Ml Flush Syringe IV 10 ml BID ELAINE Administration Sodium Chloride 10 ml 05/29/21 05:28 Sodium Chloride 0.9% 10 Ml Flush Syringe IV PRN PRN LINE FLUSH Nutrition/Malnutrition Assess - Dietary Evaluation Nutrition/Malnutrition Findings: Nutrition Notes Start: 06/03/21 13 :11 Freq: Status: Active Protocol: Document 06/03/21 13:11 KALI (Rec: 06/03/21 13:18 [facility] [id number]) Nutrition Notes Need for Assessment generated from: LOS Initial or Follow up Assessment Current Diagnosis CKD (stage V CKD),Hypertension Other Pertinent Diagnosis Duodenal ulcer with hemorrahage, afib with RVR Current Diet Renal Labs/Tests BUN 41 Cr 4.1 Ca 6.7 Pertinent Medications Reviewed Height 5 ft Weight 61 kg [place] Body Weight (kg) 45.45 BMI 26.2 Weight Status Appropriate Subjective/Other Information Pt screened for LOS. She is not in the room at time of visit (12:03); likely in HD. Per MD note on yesterday, pt eating poorly. No meal intakes documented since admission. Burn Absent Trauma Absent Minimum of two criteria No #1 Nutrition Diagnosis Increased nutrient needs ( specify in comment below) Comments: protein Etiology increased demands of HD As Evidenced by Signs and Symptoms pt receives HD and is reportedly with poor PO intake Is patient on ventilator? No Is Patient Ambulatory and/or Out of Bed No REE-([facility]-confined to bed) 1202.844 Calculation Used for Recommendations [facility] Additional Notes Pro needs >1.2g/kg: >73g/day Fluid needs 1-1.5L/day Nutrition Intervention Change Diet Order: Continue current diet order Add Supplement/Snack (indicate name/kcal Nepro once daily /protein ) Provides kCal: 425 Provides Protein (gm) 19 Goal #1 PO intake of meals plus ONS to meet at least 75% energy and pro needs Anticipated Discharge Needs: Continue ONS 1-2 times daily if suboptimal PO intake persists Follow-Up By: 06/07/21 Additional Comments F/U: intakes (meals/ONS)
[2021-06-07] MEDS: AMIODARONE 200 MG TAB PO SCH (10:00)
[2021-06-07] MEDS: POLYETHYLENE GLYCOL 3350 17 GM POWDER PO SCH (10:01)
[2021-06-07] MEDS: PANTOPRAZOLE 40 MG TAB PO SCH (10:01)
--- NOTE | 2021-06-07 11:30 | Progress Note ---
Assessment and Plan - Patient Problems (1) Atrial fibrillation with rapid ventricular response Current Visit: Yes Status: Acute Plan to address problem: 80-year-old woman admitted with severe anemia, hematocrit of 15, suspected GI bleeding. With blood transfusions and further management, anemia is now stable, hematocrit today is 27. Hospital course has been notable for paroxysmal atrial fibrillation, which has been managed with medical therapy. Continue judicious use of amiodarone for atrial fibrillation suppression. Due to the presentation with severe anemia, patient is not a candidate for anticoagulation now or in the near term. Subjective Date of service: 06/07/21 Principal diagnosis: Anemia, GI bleed Interval history: No new cardiac complaints, no new cardiac events reported. On radiation monitor, she has a stable sinus rhythm at 65. Objective Vital Signs Temp Pulse Resp BP Pulse Ox Pulse Ox 06/07/21 09:59 129/51 06/07/21 07:55 98.5 F 67 151/49 98 06/07/21 05:00 57 L 06/07/21 04:32 65 154/39 95 06/06/21 23:41 98.3 F 62 18 131/38 98 06/06/21 22:00 98 06/06/21 20:29 98.0 F 66 18 113/43 96 06/06/21 17:46 65 06/06/21 15:39 97.4 F L 68 124/36 98 06/06/21 13:40 97.2 F L 61 18 128/62 97 06/06/21 13:30 64 135/51 06/06/21 13:15 62 129/58 06/06/21 13:00 67 95/35 06/06/21 12:45 63 160/56 06/06/21 12:30 55 L 121/52 06/06/21 12:15 55 L 145/58 06/06/21 12:00 65 146/56 06/06/21 11:45 62 157/61 06/06/21 11:30 59 L 137/66 - Physical Examination General: No Apparent Distress HEENT: Positive: PERRL Neck: Positive: neck supple Cardiac: Positive: Reg Rate and Rhythm Lungs: Positive: clear to auscultation Neuro: Positive: Grossly Intact Abdomen: Positive: Soft Extremities: Absent: edema - Labs and Meds CBC 06/07/21 Range/Units 05:13 WBC 5.5 (4.5-11.0) K/mm3 RBC 3.16 L (3.65-5.03) M/mm3 Hgb 8.9 L (10.1-14.3) gm/dl Hct 28.2 L (30.3-42.9) % Plt Count 214 (140-440) K/mm3 Lymph # (Auto) 1.2 (1.2-5.4) K/mm3 [place] # (Auto) 0.6 (0.0-0.8) K/mm3 Eos # (Auto) 0.5 H (0.0-0.4) K/mm3 Baso # (Auto) 0.1 (0.0-0.1) K/mm3 Comprehensive Metabolic Panel 06/07/21 Range/Units 05:13 Sodium 137 (137-145) mmol/L Potassium 3.6 (3.6-5.0) mmol/L Chloride 99.4 (98-107) mmol/L Carbon Dioxide 26 (22-30) mmol/L BUN 20 H (7-17) mg/dL Creatinine 2.9 H (0.6-1.2) mg/dL Glucose 88 (65-100) mg/dL Calcium 7.0 L (8.4-10.2) mg/dL - Allied health notes Allied health notes reviewed: nursing
[2021-06-07] MEDS ORDERED: SODIUM CHLORIDE 0.9% 100 ML IV PRN (13:36)
--- NOTE | 2021-06-07 13:58 | Progress Note ---
Assessment and Plan Atrial Fibrillation with Rapid Ventricular Rate Hypotension Upper GI Bleeding ABLA Hypertension Severe Anemia Thrombocytopenia ESRD on HD- MWF - continue HD/UF for toxin and volume clearance (M/W/F) - no new issues today, continue care as below; - continue with PPI therapy - supportive transfusions as clinically indicated, keep HgB >7g/dL - continue to monitor hemodynamics closely - advance diet per GI team recommendations - supplemental oxygen to keep O2 sats > 90% - prn bronchodilators (KAYA) with pulm hygiene per RT - avoid nephrotoxins, renally dose all medications - continue mobility protocols to prevent pressure ulcers - PT/OT as tolerated - Wound care per RN/WCT - accuchecks with glycemic control per SSI for target blood glucose < 180 mg/dL - tobacco abstinence strongly counseled at the bedside - home oxygen evaluation at discharge - prn analgesia per pain score - GI & VTE prophylaxis - Flu & pneumovax per protocol - Pulmonary out patient follow up for PFTs and optimization of respiratory status - continue other care per attending / other consultants ... re-evaluate in am & prn Subjective Date of service: 06/07/21 Principal diagnosis: A-fib with RVR; Hypotension; UGIB; HTN; ABLA; Thromboc ytopenia; ESRD on HD Interval history: Patient is seen today for: Atrial Fibrillation with Rapid Ventricular Rate; Hypotension; Upper GI Bleeding; HTN; ABLA; Thrombocytopenia; ESRD on HD- MWF Seen and examined at bedside; 24hour events reviewed; nursing and respiratory care staff consulted; no adverse overnight events reported to me; resting peacefully in bed; on room air now; not SOB; no N/V/F/C; no new issues today Objective Vital Signs - 12hr 06/07/21 06/07/21 06/07/21 04:32 05:00 07:55 Temperature 98.5 F Pulse Rate 65 57 L 67 Respiratory Rate Blood Pressure 154/39 151/49 O2 Sat by Pulse 95 98 Oximetry 06/07/21 06/07/21 09:59 11:51 Temperature 98.2 F Pulse Rate 72 Respiratory 20 Rate Blood Pressure 129/51 105/30 O2 Sat by Pulse 95 Oximetry Constitutional: no acute distress Eyes: non-icteric ENT: oropharynx moist Neck: supple, no lymphadenopathy, no JVD Effort: normal Ascultation: Bilateral: clear, diminished breath sounds Percussion: Bilateral: not dull Cardiovascular: regular rate and rhythm, other (R. Chest Permacath) Gastrointestinal: normoactive bowel sounds, soft, non-tender, non-distended (protuberant) Integumentary: other (left upper extremity AV graft) Extremities: no cyanosis, no edema, pink and warm, pulses normal Neurologic: normal mental status, non-focal exam, pupils equal and round, motor strength normal and Psychiatric: mood appropriate, affect normal CBC and BMP: 06/08/21 05:25 06/08/21 05:25 ABG, PT/INR, D-dimer: PT/INR, D-dimer PT 18.1 Sec. (12.2-14.9) H 05/29/21 03:57 INR 1.33 (0.87-1.13) H 05/29/21 03:57 Abnormal lab findings: Abnormal Labs 05/29/21 05/29/21 05/29/21 01:16 01:16 01:52 WBC RBC 1.56 L Hgb 5.3 L* Hct 15.9 L* MCV 102 H MCH 34 H RDW Plt Count 131 L Lymph % (Auto) 11.4 L Starke % (Auto) Eos % (Auto) Lymph # (Auto) 0.9 L [place] # (Auto) Eos # (Auto) Seg Neutrophils % 82.9 H Seg Neuts % (Manual) Lymphocytes % (Manual) Seg Neutrophils # Lymphocytes # (Manual) PT INR Potassium Carbon Dioxide 21 L BUN 69 H Creatinine 2.5 H Glucose 112 H Calcium 8.0 L Phosphorus Total Protein 4.8 L Albumin 3.0 L Lipase 73 H Urine WBC (Auto) Crossmatch 05/29/21 05/29/21 05/29/21 03:57 03:57 06:35 WBC RBC Hgb Hct MCV MCH RDW Plt Count Lymph % (Auto) [place] % (Auto) Eos % (Auto) Lymph # (Auto) [place] # (Auto) Eos # (Auto) Seg Neutrophils % Seg Neuts % (Manual) Lymphocytes % (Manual) Seg Neutrophils # Lymphocytes # (Manual) PT 18.1 H INR 1.33 H Potassium Carbon Dioxide BUN Creatinine Glucose Calcium Phosphorus Total Protein Albumin Lipase Urine WBC (Auto) 10.0 H Crossmatch See Detail 05/30/21 05/30/21 05/31/21 03:03 03:03 04:15 WBC 13.0 H RBC 2.05 L 3.42 L Hgb 6.2 L 9.3 L D Hct 18.7 L* 28.2 L D MCV MCH 27 L RDW 17.5 H 20.2 H Plt Count 108 L 101 L Lymph % (Auto) 8.9 L 7.3 L Starke % (Auto) 8.5 H 9.8 H Eos % (Auto) Lymph # (Auto) 0.9 L 1.0 L [place] # (Auto) 0.9 H 1.3 H Eos # (Auto) Seg Neutrophils % 81.6 H 82.0 H Seg Neuts % (Manual) Lymphocytes % (Manual) Seg Neutrophils # 8.3 H 10.7 H Lymphocytes # (Manual) PT INR Potassium 5.2 H Carbon Dioxide 18 L BUN 135 H Creatinine 4.1 H D Glucose 163 H Calcium 7.5 L Phosphorus Total Protein Albumin Lipase Urine WBC (Auto) Crossmatch 05/31/21 05/31/21 06/01/21 04:15 14:19 04:42 WBC RBC 3.03 L Hgb 8.9 L 8.5 L Hct 26.8 L 26.0 L MCV MCH RDW 20.7 H Plt Count 113 L 122 L Lymph % (Auto) [place] % (Auto) 12.6 H Eos % (Auto) 4.5 H Lymph # (Auto) [place] # (Auto) 1.1 H Eos # (Auto) Seg Neutrophils % Seg Neuts % (Manual) Lymphocytes % (Manual) Seg Neutrophils # Lymphocytes # (Manual) PT INR Potassium Carbon Dioxide BUN 46 H Creatinine 2.6 H Glucose 135 H Calcium 7.6 L Phosphorus Total Protein Albumin Lipase Urine WBC (Auto) Crossmatch 06/01/21 06/02/21 06/02/21 04:42 07:24 07:24 WBC RBC 3.18 L Hgb 9.1 L Hct 27.5 L MCV MCH RDW 20.2 H Plt Count 138 L Lymph % (Auto) 6.7 L [place] % (Auto) 15.1 H Eos % (Auto) Lymph # (Auto) 0.6 L [place] # (Auto) 1.3 H Eos # (Auto) Seg Neutrophils % 75.7 H Seg Neuts % (Manual) Lymphocytes % (Manual) Seg Neutrophils # Lymphocytes # (Manual) PT INR Potassium Carbon Dioxide BUN 56 H 21 H Creatinine 3.9 H 2.3 H Glucose 102 H Calcium 7.3 L 6.9 L Phosphorus 4.80 H Total Protein Albumin Lipase Urine WBC (Auto) Crossmatch 06/03/21 06/03/21 06/04/21 05:49 05:49 04:53 WBC RBC 2.97 L 2.86 L Hgb 8.6 L 8.3 L Hct 25.7 L 24.9 L MCV MCH RDW 20.5 H 20.6 H Plt Count Lymph % (Auto) [place] % (Auto) 15.6 H 14.8 H Eos % (Auto) 6.8 H 7.5 H Lymph # (Auto) 1.0 L 1.1 L [place] # (Auto) 1.0 H 0.9 H Eos # (Auto) 0.5 H Seg Neutrophils % Seg Neuts % (Manual) Lymphocytes % (Manual) Seg Neutrophils # Lymphocytes # (Manual) PT INR Potassium Carbon Dioxide BUN 41 H Creatinine 4.1 H D Glucose Calcium 6.7 L Phosphorus Total Protein Albumin Lipase Urine WBC (Auto) Crossmatch 06/04/21 06/05/21 06/05/21 04:53 05:05 05:05 WBC RBC 2.96 L Hgb 8.3 L Hct 26.2 L MCV MCH RDW 21.9 H Plt Count Lymph % (Auto) [place] % (Auto) Eos % (Auto) Lymph # (Auto) [place] # (Auto) Eos # (Auto) Seg Neutrophils % Seg Neuts % (Manual) 87.0 H Lymphocytes % (Manual) 9.0 L Seg Neutrophils # Lymphocytes # (Manual) 0.5 L PT INR Potassium 3.5 L Carbon Dioxide BUN 27 H 35 H Creatinine 3.2 H 4.0 H Glucose Calcium 6.7 L 6.9 L Phosphorus Total Protein Albumin Lipase Urine WBC (Auto) Crossmatch 06/05/21 06/06/21 06/06/21 08:43 06:02 06:02 WBC RBC 3.11 L Hgb 9.0 L Hct 27.4 L MCV MCH RDW 21.9 H Plt Count Lymph % (Auto) [place] % (Auto) 14.3 H Eos % (Auto) 11.8 H Lymph # (Auto) 1.0 L [place] # (Auto) Eos # (Auto) 0.6 H Seg Neutrophils % Seg Neuts % (Manual) Lymphocytes % (Manual) Seg Neutrophils # Lymphocytes # (Manual) PT INR Potassium Carbon Dioxide BUN 34 H 33 H Creatinine 3.9 H 4.1 H Glucose Calcium 7.3 L 7.1 L Phosphorus Total Protein Albumin Lipase Urine WBC (Auto) Crossmatch 06/07/21 06/07/21 05:13 05:13 WBC RBC 3.16 L Hgb 8.9 L Hct 28.2 L MCV MCH RDW 22.4 H Plt Count Lymph % (Auto) [place] % (Auto) 11.6 H Eos % (Auto) 8.5 H Lymph # (Auto) [place] # (Auto) Eos # (Auto) 0.5 H Seg Neutrophils % Seg Neuts % (Manual) Lymphocytes % (Manual) Seg Neutrophils # Lymphocytes # (Manual) PT INR Potassium Carbon Dioxide BUN 20 H Creatinine 2.9 H Glucose Calcium 7.0 L Phosphorus Total Protein Albumin Lipase Urine WBC (Auto) Crossmatch Allied health notes reviewed: nursing
--- NOTE | 2021-06-07 14:00 | Progress Note ---
Assessment and Plan Assessment * End stage renal disease (Outpatient HD at [facility]) * Symptomatic anemia of ABL * GI bleed --EGD: Duodenal ulcer (May 31) * Atrial fibrillation with RVR * Azotemia - multifactorial, 2/2 GI bleed vs ESRD * Hypertension * Secondary hyperparathyroidism Plan: * Patient does have some basal crackles . Shall dialyze her again today and remove fluid as tolerated * Switch her dialysis days to TTS as outpatient. * Transfuse pRBC prn * GI recommendations noted - f/u as outpatient * Rate control per cardiology * Epogen prn * Dose medications for renal function * Consultants notes appreciated Subjective Date of service: 06/07/21 Principal diagnosis: A-fib with RVR; Hypotension; UGIB; HTN; ABLA; Thrombocytopenia; ESRD on HD Interval history: Patient appears comfortable today. Shortness of breath is improving. Objective - Vital Signs Vital signs: Vital Signs - 12hr 06/07/21 06/07/21 06/07/21 04:32 05:00 07:55 Temperature 98.5 F Pulse Rate 65 57 L 67 Respiratory Rate Blood Pressure 154/39 151/49 O2 Sat by Pulse 95 98 Oximetry 06/07/21 06/07/21 09:59 11:51 Temperature 98.2 F Pulse Rate 72 Respiratory 20 Rate Blood Pressure 129/51 105/30 O2 Sat by Pulse 95 Oximetry - General Appearance General appearance: well-developed, well-nourished, appears stated age EENT: PERRL, mucous membranes moist Neck: no JVD, no thyromegaly, no carotid bruit, supple, other (Right IJ PermCath in place) Respiratory: Present: Rales (Basal crackles bilaterally) Cardiology: irregularly irregular Gastrointestinal: normal, normoactive bowel sounds Integumentary: other (AV graft left upper arm. Good bruit and thrill. Infiltration noted) - Lab 06/07/21 05:13 06/07/21 05:13 Most recent lab results Calcium 7.0 mg/dL (8.4-10.2) L 06/07/21 05:13 Phosphorus 4.80 mg/dL (2.5-4.5) H 06/01/21 04:42 Magnesium 1.70 mg/dL (1.7-2.3) 06/01/21 04:42 Medications & Allergies - Medications Allergies/Adverse Reactions: Allergies celecoxib [From Celebrex] Allergy (Verified 05/30/21 12:42) FACE SWELLING sulfamethoxazole [From Bactrim] Allergy (Verified 05/30/21 12:42) Swelling trimethoprim [From Bactrim] Allergy (Verified 05/30/21 12:42) Swelling Home Medications: Home Medications Medication Instructions Recorded Confirmed Last Taken Type Amiodarone [Cordarone 200 MG TAB] 100 mg PO QDAY #30 tablet 06/03/21 Unknown Rx Midodrine [Proamatine] 5 mg PO TID@0800,1200,1600 #60 06/03/21 Unknown Rx tablet Pantoprazole [Protonix TAB] 40 mg PO DAILY #30 tablet 06/03/21 Unknown Rx Active Medications: Generic Name Dose Route Start Last Admin Trade Name Freq PRN Reason Stop Dose Admin Acetaminophen 650 mg 05/29/21 05:28 06/06/21 23:34 Acetaminophen 325 Mg Tab PO 650 mg Q4H PRN Administration Pain MILD(1-3)/Fever >100.5/LOVE Albumin Human 25 gm 05/29/21 16:05 Albumin Human 25% (25 Gm/100 Ml) Inj IV ASHLEY PRN Hypotension Amiodarone HCl 100 mg 06/04/21 10:00 06/07/21 10:00 Amiodarone 200 Mg Tab PO 100 mg QDAY ELAINE Administration Epoetin Salas-epbx 20,000 unit 05/29/21 16:05 06/06/21 12:15 Epoetin Salas-Epbx 20,000 Unit/1 Ml Vial IV 20,000 unit ASHLEY PRN Administration hemodialysis Hydrocortisone Acetate 1 applic 05/30/21 14:00 Hydrocortisone 1% Cream 28.4gm TP Q8H PRN Skin Irritation Sodium Chloride 100 mls @ 999 mls/hr 06/01/21 10:00 Nacl 0.9% IV ASHLEY PRN Hypotension Sodium Chloride 100 mls @ 999 mls/hr 06/07/21 13:36 Nacl 0.9% IV ASHLEY PRN Hypotension Metoprolol Tartrate 2.5 mg 05/30/21 16:00 Metoprolol Tartrate 5 Mg/5 Ml Inj IV Q6HR PRN HR >120 Morphine Sulfate 2 mg 05/29/21 05:28 06/01/21 10:52 Morphine 2 Mg/1 Ml Inj IV 2 mg Q4H PRN Administration Pain, Moderate (4-6) Ondansetron HCl 4 mg 05/29/21 05:28 06/01/21 17:15 Ondansetron 4 Mg/2 Ml Inj IV 4 mg Q8H PRN Administration Nausea And Vomiting Pantoprazole Sodium 40 mg 06/02/21 10:00 06/07/21 10:01 Pantoprazole 40 Mg Tab PO 40 mg DAILY ELAINE Administration Polyethylene Glycol 17 gm 06/04/21 16:00 06/07/21 10:01 Polyethylene Glycol 3350 17 Gm Powder PO Not Given QDAY ELAINE Sodium Chloride 10 ml 05/29/21 10:00 06/07/21 10:01 Sodium Chloride 0.9% 10 Ml Flush Syringe IV 10 ml BID ELAINE Administration Sodium Chloride 10 ml 05/29/21 05:28 Sodium Chloride 0.9% 10 Ml Flush Syringe IV PRN PRN LINE FLUSH
[2021-06-07] MEDS: ACETAMINOPHEN 325 MG TAB PO PRN (21:38)
[2021-06-08 06:28] LABS: Basophils # (Auto) 0.1 K/mm3 (0.0-0.1); Basophils % (Auto) 1.4 % (0.0-1.8); Eosinophils # (Auto) 0.6 K/mm3 (0.0-0.4); Eosinophils % (Auto) 9.7 % (0.0-4.3); Hematocrit 28.2 % (30.3-42.9); Hemoglobin 9.3 gm/dl (10.1-14.3); Lymphocytes # (Auto) 1.6 K/mm3 (1.2-5.4); Lymphocytes % (Auto) 27.2 % (13.4-35.0); Mean Corpuscular HGB Conc 33 % (30-34); Mean Corpuscular Volume 88 fl (79-97); Monocytes # (Auto) 0.6 K/mm3 (0.0-0.8); Monocytes % (Auto) 9.8 % (0.0-7.3); Platelet Count 177 K/mm3 (140-440)
[2021-06-08 06:41] LABS: Red Cell Distribution Width 22.5 % (13.2-15.2)
[2021-06-08 07:01] LABS: Calcium 7.4 mg/dL (8.4-10.2)
[2021-06-08] MEDS ORDERED: POTASSIUM CHLORIDE ER 20 MEQ TAB PO SCH (09:30)
[2021-06-08] MEDS: PANTOPRAZOLE 40 MG TAB PO SCH (10:05)
[2021-06-08] MEDS: POLYETHYLENE GLYCOL 3350 17 GM POWDER PO SCH ×2 (10:05→10:09)
[2021-06-08] MEDS: AMIODARONE 200 MG TAB PO SCH (10:08)
--- NOTE | 2021-06-08 10:19 | Progress Note ---
Assessment and Plan - Patient Problems (1) Atrial fibrillation with rapid ventricular response Current Visit: Yes Status: Acute Plan to address problem: 80-year-old woman admitted with severe anemia, hematocrit of 15, suspected GI bleeding. With blood transfusions and further management, anemia is now stable, hematocrit today is 27. Hospital course has been notable for paroxysmal atrial fibrillation, which has been managed with medical therapy. Continue judicious use of amiodarone for atrial fibrillation suppression. Due to the presentation with severe anemia, patient is not a candidate for anticoagulation now or in the near term. Subjective Date of service: 06/08/21 Principal diagnosis: A-fib with RVR; Hypotension; UGIB; HTN; ABLA; Thrombocytopenia; ESRD on HD Interval history: No new cardiac complaints, no new cardiac events reported. 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 Objective Vital Signs Temp Pulse Pulse Resp BP Pulse Ox Pulse Ox 06/08/21 08:01 97.9 F 63 16 150/50 97 06/08/21 05:41 65 06/08/21 03:39 98.4 F 59 L 18 148/53 99 06/07/21 23:27 98.7 F 60 18 149/42 96 06/07/21 22:00 62 17 98 06/07/21 20:40 98.8 F 58 L 16 150/41 98 06/07/21 20:10 61 120/42 97 06/07/21 18:52 58 L 06/07/21 18:35 98.0 F 57 L 18 155/57 100 06/07/21 18:20 55 L 147/52 06/07/21 18:00 53 L 136/51 06/07/21 17:45 54 L 147/53 06/07/21 17:30 54 L 150/54 06/07/21 17:15 55 L 157/51 06/07/21 17:00 58 L 133/52 06/07/21 16:45 59 L 130/54 06/07/21 16:30 57 L 150/48 06/07/21 16:15 57 L 152/48 06/07/21 16:00 56 L 155/54 06/07/21 15:45 56 L 129/55 06/07/21 15:30 62 126/46 06/07/21 15:20 80 131/48 04/19/22 15:15 98.2 F 69 18 131/41 97 06/07/21 11:51 98.2 F 72 20 105/30 95 - Physical Examination General: No Apparent Distress HEENT: Positive: PERRL Neck: Positive: neck supple Cardiac: Positive: Reg Rate and Rhythm Lungs: Positive: Decreased Breath Sounds Neuro: Positive: Grossly Intact Abdomen: Positive: Soft Extremities: Absent: edema - Labs and Meds CBC 06/08/21 Range/Units 05:25 WBC 5.8 (4.5-11.0) K/mm3 RBC 3.20 L (3.65-5.03) M/mm3 Hgb 9.3 L (10.1-14.3) gm/dl Hct 28.2 L (30.3-42.9) % Plt Count 177 (140-440) K/mm3 Lymph # (Auto) 1.6 (1.2-5.4) K/mm3 [place] # (Auto) 0.6 (0.0-0.8) K/mm3 Eos # (Auto) 0.6 H (0.0-0.4) K/mm3 Baso # (Auto) 0.1 (0.0-0.1) K/mm3 Comprehensive Metabolic Panel 06/08/21 Range/Units 05:25 Sodium 135 L (137-145) mmol/L Potassium 3.3 L (3.6-5.0) mmol/L Chloride 96.8 L (98-107) mmol/L Carbon Dioxide 28 (22-30) mmol/L BUN 14 (7-17) mg/dL Creatinine 2.7 H (0.6-1.2) mg/dL Glucose 84 (65-100) mg/dL Calcium 7.4 L (8.4-10.2) mg/dL - Allied health notes Allied health notes reviewed: nursing
--- NOTE | 2021-06-08 12:35 | Discharge Summary ---
Providers - Providers Date of Admission: 05/29/21 05:28 Date of discharge: 06/08/21 Attending physician: TOMASA HUYNH 05/29/21 05:28 Consult to Physician [CONS] Routine Comment: Consulting Provider: STEPHY GUTIÉRREZ Physician Instructions: Reason For Exam: gib 05/29/21 06:01 Consult to Physician [CONS] Routine Comment: Consulting Provider: LYNNETTE COTTRELL Physician Instructions: Reason For Exam: esrd 05/29/21 11:08 Consult to Physician [CONS] Routine Comment: Consulting Provider: SOLE CHIRINOS Physician Instructions: Reason For Exam: ESRD 05/30/21 08:53 Consult to Physician [CONS] Routine Comment: paged overhead and called office/martha Consulting Provider: LORETTA SCHROEDER Physician Instructions: Reason For Exam: A. fib with rapid ventricular rate 05/30/21 09:47 Consult to Physician [CONS] Routine Comment: DR conroy/ martha Consulting Provider: JORGE LUIS SANDS Physician Instructions: Reason For Exam: A. fib RVR/critical care consult 05/31/21 19:14 Physical Therapy Evaluation and Treat [CONS] Routine Comment: Reason For Exam: Strengthening and Conditioning 06/01/21 11:48 Occupational Therapy Evaluate and Treat [CONS] Stat Comment: Reason For Exam: Debility 06/02/21 09:41 Physical Therapy Evaluation and Treat [CONS] Urgent Comment: Reason For Exam: pending DC Primary care physician: CONCEPCION MACIEL Hospitalization Reason for admission: Severe anemia Hb 5.3, GI bleeding Condition: Fair Pertinent studies: CT abdomen and pelvis EGD Multiple units of blood transfusion Procedures: EGD; 1 cm cratered ulcer in the duodenal bulb with visible vessel at the base Endoscopic clip x2 was applied close to the mucosal defect the endoscopic clips were 2.8 mm Hospital course: 80-year-old female patient with significant past medical history of end-stage renal disease on hemodialysis was admitted through emergency room with profound anemia with hemoglobin of 5.3.Patient was evaluated received multiple units of PRBC transfusion, noted to have GI bleeding, evaluated by GI, underwent EGD which showed duodenal bulb ulcer Patient was also evaluated by nephrology received hemodialysis per schedule patient had A. fib with rapid ventricular rate cardiology evaluated the patient patient received appropriate medications and currently patient is on amiodarone with good rate control. Currently patient is not a candidate for chronic anticoagulation in view of severe life-threatening anemia requiring multiple units of blood transfusions . 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 Patient is stable at discharge, Discharge diagnosis: #Atrial Fibrillation with Rapid Ventricular Rate - Went into Afib with RVR on the floor, HR as high as 140s - Unclear if patient has a history, most likely new onset - Cardiology on consult, appreciated recommendations - s/p Amiodorone gtt - 05/31 Coverted to Sinus, EKG confirmed SB - Continue PRN IV metoprolol for HR greater than 120 - Patient not a candidate for Anticoagulation at this time due to severe anemia and possible GIB -Reviewed cardiology note Due to persistent bradycardia, AV yasmin blockers have been discontinued - CCM is also consulted, appreciate recommendations #Hypotension-improved - probably 2/2 hypovolemia vs sedation post EGD procedure - Wide pulse pressure, patient is asymptomatic - Continue Midodrine - Continue to trend H&H, transfuse if hbg less than 7 - Continue blood pressure monitor per protocol - Maintain SBP less than 160 #Severe Anemia H&H stable posttransfusion #Thrombocytopenia #Melena #Status post EGD - Presented with Hgb of 5.3 and Hct of 15.9 - Stool guaiac is positive in the ED - s/p 2units of PRBCs - GI consulted, appreciate recommendations - 05/31 s/p EGD with endoscopic clipping which revealed 1cm Duodenal bulb ulcer (clipped x 2), Cold bx antrum for H pylori. Normal stomach and esophagus - No s/s of any active bleeding - H&H remains stable - Continue PPI- Protonix BID - On Full liquid diet, advance as tolerated - Will continue to trend CBC - Transfuse if Hgb is less than 7 -Resume aspirin on 06/09 per review of GI note --Duodenal bulb ulcers on EGD #ESRD on HD- MWF - Patient is anuric - Nephrology on consult, appreciated recommendation - Continue HD per Nephro - Strict intake and output - Avoid nephrotoxic medications; Renally dose medications - Monitor and replace electrolytes as needed #GI/DVT Prophylaxis - PPI- IV protonix - SCD for DVT prophylaxis. Cleared by all the consultants Stable at discharge Case management evaluated the patient, set up SNF placement / Disposition: [facility] Final Discharge Diagnosis (Prints w/discharge instructions): Atrial fibrillation with rapid ventricular rate now rate controlled. Hypertension. Severe anemia status post blood transfusion. GI bleeding. Duodenal bulb ulcer on EGD. End- stage renal disease on hemodialysis MWF Time spent for discharge: 40 min Core Measure Documentation - Palliative Care Palliative Care/ Comfort Measures: Not Applicable - Core Measures Any of the following diagnoses?: none Exam - Constitutional Vitals: Temp Pulse Resp BP Pulse Ox 98.0 F 64 16 125/52 98 06/08/21 11:26 06/08/21 11:32 06/08/21 11:26 06/08/21 11:26 06/08/21 11:32 General appearance: Present: no acute distress, well-nourished - EENT Eyes: Present: PERRL, EOM intact - Neck Neck: Present: supple, normal ROM - Respiratory Respiratory effort: normal Respiratory: bilateral: diminished, negative: rales, rhonchi, wheezing - Cardiovascular Rhythm: regular Heart Sounds: Present: S1 & S2 - Extremities Extremities: no ischemia, No edema - Abdominal General gastrointestinal: Present: soft, non-tender, non-distended, normal bowel sounds - Integumentary Integumentary: Present: clear, warm - Musculoskeletal Musculoskeletal: strength equal bilaterally - Psychiatric Psychiatric: appropriate mood/affect, agitated - Neurologic Neurologic: CNII-XII intact, moves all extremities Plan Activity: advance as tolerated, fall precautions Diet: other (Cardiac diet) Special Instructions: physical therapy, occupational therapy Additional Instructions: If you have worsening symptoms contact MD or go to the nearest emergency room as needed. Advised to follow renal/hemodialysis per schedule. Follow cardiology per schedule. Advised to comply with medications, diet, follow-up visits, Follow up with: CONCEPCION MACIEL MD [Primary Care Provider] - 7 Days MICHEL TAYLOR MD [Staff Physician] - 7 Days LORETTA SCHROEDER MD [Staff Physician] - 10 Days STEPHY GUTIÉRREZ MD [Staff Physician] - 14 Days JOSÉ MANUEL MERCEDES MD [Staff Physician] - 10 Days Prescriptions: Amiodarone HCl [Amiodarone 100 MG TAB] 100 mg PO DAILY #30 polyethylene glycoL 3350 [Miralax 3350] 17 gm PO QDAY #30 powd.pack Pantoprazole [Protonix TAB] 40 mg PO DAILY #30 tablet
--- NOTE | 2021-06-08 12:54 | Progress Note ---
Assessment and Plan Atrial Fibrillation with Rapid Ventricular Rate Hypotension Upper GI Bleeding ABLA Hypertension Severe Anemia Thrombocytopenia ESRD on HD- MWF - continue HD/UF for toxin and volume clearance (M/W/F) - no new issues today, continue care as below; - continue with PPI therapy - supportive transfusions as clinically indicated, keep HgB >7g/dL - continue to monitor hemodynamics closely - advance diet per GI team recommendations - supplemental oxygen to keep O2 sats > 90% - prn bronchodilators (KAYA) with pulm hygiene per RT - avoid nephrotoxins, renally dose all medications - continue mobility protocols to prevent pressure ulcers - PT/OT as tolerated - Wound care per RN/WCT - accuchecks with glycemic control per SSI for target blood glucose < 180 mg/dL - tobacco abstinence strongly counseled at the bedside - home oxygen evaluation at discharge - prn analgesia per pain score - GI & VTE prophylaxis - Flu & pneumovax per protocol - Pulmonary out patient follow up for PFTs and optimization of respiratory status - continue other care per attending / other consultants ... re-evaluate in am & prn Subjective Date of service: 06/08/21 Principal diagnosis: A-fib with RVR; Hypotension; UGIB; HTN; ABLA; Thromboc ytopenia; ESRD on HD Interval history: Patient is seen today for: Atrial Fibrillation with Rapid Ventricular Rate; Hypotension; Upper GI Bleeding; HTN; ABLA; Thrombocytopenia; ESRD on HD- MWF Seen and examined at bedside; 24hour events reviewed; nursing and respiratory care staff consulted; no adverse overnight events reported to me; resting peacefully in bed; Objective Vital Signs - 12hr 06/08/21 06/08/21 06/08/21 03:39 05:41 08:01 Temperature 98.4 F 97.9 F Pulse Rate 59 L 65 63 Pulse Rate [ Radial] Respiratory 18 16 Rate Blood Pressure 148/53 150/50 O2 Sat by Pulse 99 97 Oximetry 06/08/21 06/08/21 11:26 11:32 Temperature 98.0 F Pulse Rate 58 L Pulse Rate [ 64 Radial] Respiratory 16 Rate Blood Pressure 125/52 O2 Sat by Pulse 94 98 Oximetry Constitutional: no acute distress Eyes: non-icteric ENT: oropharynx moist Neck: supple, no lymphadenopathy, no JVD Effort: normal Ascultation: Bilateral: clear, diminished breath sounds Percussion: Bilateral: not dull Cardiovascular: regular rate and rhythm, other (R. Chest Permacath) Gastrointestinal: normoactive bowel sounds, soft, non-tender, non-distended (protuberant) Integumentary: other (left upper extremity AV graft) Extremities: no cyanosis, no edema, pink and warm, pulses normal Neurologic: normal mental status, non-focal exam, pupils equal and round, motor strength normal and Psychiatric: mood appropriate, affect normal CBC and BMP: 06/08/21 05:25 06/08/21 05:25 ABG, PT/INR, D-dimer: PT/INR, D-dimer PT 18.1 Sec. (12.2-14.9) H 05/29/21 03:57 INR 1.33 (0.87-1.13) H 05/29/21 03:57 Abnormal lab findings: Abnormal Labs 05/29/21 05/29/21 05/29/21 01:16 01:16 01:52 WBC RBC 1.56 L Hgb 5.3 L* Hct 15.9 L* MCV 102 H MCH 34 H RDW Plt Count 131 L Lymph % (Auto) 11.4 L Anderson % (Auto) Eos % (Auto) Lymph # (Auto) 0.9 L Anderson # (Auto) Eos # (Auto) Seg Neutrophils % 82.9 H Seg Neuts % (Manual) Lymphocytes % (Manual) Seg Neutrophils # Lymphocytes # (Manual) PT INR Sodium Potassium Chloride Carbon Dioxide 21 L BUN 69 H Creatinine 2.5 H Glucose 112 H Calcium 8.0 L Phosphorus Total Protein 4.8 L Albumin 3.0 L Lipase 73 H Urine WBC (Auto) Crossmatch 05/29/21 05/29/21 05/29/21 03:57 03:57 06:35 WBC RBC Hgb Hct MCV MCH RDW Plt Count Lymph % (Auto) Anderson % (Auto) Eos % (Auto) Lymph # (Auto) Anderson # (Auto) Eos # (Auto) Seg Neutrophils % Seg Neuts % (Manual) Lymphocytes % (Manual) Seg Neutrophils # Lymphocytes # (Manual) PT 18.1 H INR 1.33 H Sodium Potassium Chloride Carbon Dioxide BUN Creatinine Glucose Calcium Phosphorus Total Protein Albumin Lipase Urine WBC (Auto) 10.0 H Crossmatch See Detail 05/30/21 05/30/21 05/31/21 03:03 03:03 04:15 WBC 13.0 H RBC 2.05 L 3.42 L Hgb 6.2 L 9.3 L D Hct 18.7 L* 28.2 L D MCV MCH 27 L RDW 17.5 H 20.2 H Plt Count 108 L 101 L Lymph % (Auto) 8.9 L 7.3 L Anderson % (Auto) 8.5 H 9.8 H Eos % (Auto) Lymph # (Auto) 0.9 L 1.0 L Anderson # (Auto) 0.9 H 1.3 H Eos # (Auto) Seg Neutrophils % 81.6 H 82.0 H Seg Neuts % (Manual) Lymphocytes % (Manual) Seg Neutrophils # 8.3 H 10.7 H Lymphocytes # (Manual) PT INR Sodium Potassium 5.2 H Chloride Carbon Dioxide 18 L BUN 135 H Creatinine 4.1 H D Glucose 163 H Calcium 7.5 L Phosphorus Total Protein Albumin Lipase Urine WBC (Auto) Crossmatch 05/31/21 05/31/21 06/01/21 04:15 14:19 04:42 WBC RBC 3.03 L Hgb 8.9 L 8.5 L Hct 26.8 L 26.0 L MCV MCH RDW 20.7 H Plt Count 113 L 122 L Lymph % (Auto) Anderson % (Auto) 12.6 H Eos % (Auto) 4.5 H Lymph # (Auto) Anderson # (Auto) 1.1 H Eos # (Auto) Seg Neutrophils % Seg Neuts % (Manual) Lymphocytes % (Manual) Seg Neutrophils # Lymphocytes # (Manual) PT INR Sodium Potassium Chloride Carbon Dioxide BUN 46 H Creatinine 2.6 H Glucose 135 H Calcium 7.6 L Phosphorus Total Protein Albumin Lipase Urine WBC (Auto) Crossmatch 06/01/21 06/02/21 06/02/21 04:42 07:24 07:24 WBC RBC 3.18 L Hgb 9.1 L Hct 27.5 L MCV MCH RDW 20.2 H Plt Count 138 L Lymph % (Auto) 6.7 L Anderson % (Auto) 15.1 H Eos % (Auto) Lymph # (Auto) 0.6 L Anderson # (Auto) 1.3 H Eos # (Auto) Seg Neutrophils % 75.7 H Seg Neuts % (Manual) Lymphocytes % (Manual) Seg Neutrophils # Lymphocytes # (Manual) PT INR Sodium Potassium Chloride Carbon Dioxide BUN 56 H 21 H Creatinine 3.9 H 2.3 H Glucose 102 H Calcium 7.3 L 6.9 L Phosphorus 4.80 H Total Protein Albumin Lipase Urine WBC (Auto) Crossmatch 06/03/21 06/03/21 06/04/21 05:49 05:49 04:53 WBC RBC 2.97 L 2.86 L Hgb 8.6 L 8.3 L Hct 25.7 L 24.9 L MCV MCH RDW 20.5 H 20.6 H Plt Count Lymph % (Auto) Anderson % (Auto) 15.6 H 14.8 H Eos % (Auto) 6.8 H 7.5 H Lymph # (Auto) 1.0 L 1.1 L Anderson # (Auto) 1.0 H 0.9 H Eos # (Auto) 0.5 H Seg Neutrophils % Seg Neuts % (Manual) Lymphocytes % (Manual) Seg Neutrophils # Lymphocytes # (Manual) PT INR Sodium Potassium Chloride Carbon Dioxide BUN 41 H Creatinine 4.1 H D Glucose Calcium 6.7 L Phosphorus Total Protein Albumin Lipase Urine WBC (Auto) Crossmatch 06/04/21 06/05/21 06/05/21 04:53 05:05 05:05 WBC RBC 2.96 L Hgb 8.3 L Hct 26.2 L MCV MCH RDW 21.9 H Plt Count Lymph % (Auto) Anderson % (Auto) Eos % (Auto) Lymph # (Auto) Anderson # (Auto) Eos # (Auto) Seg Neutrophils % Seg Neuts % (Manual) 87.0 H Lymphocytes % (Manual) 9.0 L Seg Neutrophils # Lymphocytes # (Manual) 0.5 L PT INR Sodium Potassium 3.5 L Chloride Carbon Dioxide BUN 27 H 35 H Creatinine 3.2 H 4.0 H Glucose Calcium 6.7 L 6.9 L Phosphorus Total Protein Albumin Lipase Urine WBC (Auto) Crossmatch 06/05/21 06/06/21 06/06/21 08:43 06:02 06:02 WBC RBC 3.11 L Hgb 9.0 L Hct 27.4 L MCV MCH RDW 21.9 H Plt Count Lymph % (Auto) Anderson % (Auto) 14.3 H Eos % (Auto) 11.8 H Lymph # (Auto) 1.0 L Anderson # (Auto) Eos # (Auto) 0.6 H Seg Neutrophils % Seg Neuts % (Manual) Lymphocytes % (Manual) Seg Neutrophils # Lymphocytes # (Manual) PT INR Sodium Potassium Chloride Carbon Dioxide BUN 34 H 33 H Creatinine 3.9 H 4.1 H Glucose Calcium 7.3 L 7.1 L Phosphorus Total Protein Albumin Lipase Urine WBC (Auto) Crossmatch 06/07/21 06/07/21 06/08/21 05:13 05:13 05:25 WBC RBC 3.16 L 3.20 L Hgb 8.9 L 9.3 L Hct 28.2 L 28.2 L MCV MCH RDW 22.4 H 22.5 H Plt Count Lymph % (Auto) Anderson % (Auto) 11.6 H 9.8 H Eos % (Auto) 8.5 H 9.7 H Lymph # (Auto) Anderson # (Auto) Eos # (Auto) 0.5 H 0.6 H Seg Neutrophils % Seg Neuts % (Manual) Lymphocytes % (Manual) Seg Neutrophils # Lymphocytes # (Manual) PT INR Sodium Potassium Chloride Carbon Dioxide BUN 20 H Creatinine 2.9 H Glucose Calcium 7.0 L Phosphorus Total Protein Albumin Lipase Urine WBC (Auto) Crossmatch 06/08/21 05:25 WBC RBC Hgb Hct MCV MCH RDW Plt Count Lymph % (Auto) Anderson % (Auto) Eos % (Auto) Lymph # (Auto) Anderson # (Auto) Eos # (Auto) Seg Neutrophils % Seg Neuts % (Manual) Lymphocytes % (Manual) Seg Neutrophils # Lymphocytes # (Manual) PT INR Sodium 135 L Potassium 3.3 L Chloride 96.8 L Carbon Dioxide BUN Creatinine 2.7 H Glucose Calcium 7.4 L Phosphorus Total Protein Albumin Lipase Urine WBC (Auto) Crossmatch Allied health notes reviewed: nursing
--- NOTE | 2021-06-08 14:52 | Progress Note ---
Assessment and Plan Assessment * End stage renal disease (Outpatient HD at [facility]) * Symptomatic anemia of ABL * GI bleed --EGD: Duodenal ulcer (May 31) * Atrial fibrillation with RVR * Azotemia - multifactorial, 2/2 GI bleed vs ESRD * Hypertension * Secondary hyperparathyroidism Plan: * Shortness of breath is better after additional dialysis treatment yesterday. Her lungs also sounds much clearer today. * Continue dialysis on TTS schedule as outpatient * Transfuse pRBC prn * GI recommendations noted - f/u as outpatient * Rate control per cardiology * Epogen prn * Dose medications for renal function * Consultants notes appreciated * No objection to discharge from renal standpoint. Patient advised to continue with her outpatient scheduled dialysis treatments at [facility] Subjective Date of service: 06/08/21 Principal diagnosis: A-fib with RVR; Hypotension; UGIB; HTN; ABLA; Thrombocytopenia; ESRD on HD Interval history: Patient is comfortable today. Denies any shortness of breath. States that she is going to rehab today. Appetite is good. No nausea or vomiting. Objective - Vital Signs Vital signs: Vital Signs - 12hr 06/08/21 06/08/21 06/08/21 03:39 05:41 08:01 Temperature 98.4 F 97.9 F Pulse Rate 59 L 65 63 Pulse Rate [ Radial] Respiratory 18 16 Rate Blood Pressure 148/53 150/50 O2 Sat by Pulse 99 97 Oximetry 06/08/21 06/08/21 11:26 11:32 Temperature 98.0 F Pulse Rate 58 L Pulse Rate [ 64 Radial] Respiratory 16 Rate Blood Pressure 125/52 O2 Sat by Pulse 94 98 Oximetry - General Appearance General appearance: other (Medium built pleasant Cummings female) EENT: PERRL, mucous membranes moist Neck: no JVD, no thyromegaly, no carotid bruit, supple, other (Right IJ PermCath in place) Respiratory: Present: Ronchi (Few scattered rhonchi) Cardiology: irregularly irregular Gastrointestinal: normal, normoactive bowel sounds Integumentary: other (No edema. AV graft left upper arm. Good bruit and thrill. Bruising noted in left arm) - Lab 06/08/21 05:25 06/08/21 05:25 Most recent lab results Calcium 7.4 mg/dL (8.4-10.2) L 06/08/21 05:25 Phosphorus 4.80 mg/dL (2.5-4.5) H 06/01/21 04:42 Magnesium 1.70 mg/dL (1.7-2.3) 06/01/21 04:42 Medications & Allergies - Medications Allergies/Adverse Reactions: Allergies celecoxib [From Celebrex] Allergy (Verified 05/30/21 12:42) FACE SWELLING sulfamethoxazole [From Bactrim] Allergy (Verified 05/30/21 12:42) Swelling trimethoprim [From Bactrim] Allergy (Verified 05/30/21 12:42) Swelling Home Medications: Home Medications Medication Instructions Recorded Confirmed Last Taken Type Pantoprazole [Protonix TAB] 40 mg PO DAILY #30 tablet 06/03/21 Unknown Rx Amiodarone HCl [Amiodarone 100 MG 100 mg PO DAILY #30 06/08/21 Unknown Rx TAB] Epoetin Salas-Epbx 20,000 [Retacrit] 20,000 unit IV ASHLEY PRN vial 06/08/21 Unknown Rx polyethylene glycoL 3350 [Miralax 17 gm PO QDAY #30 powd.pack 06/08/21 Unknown Rx 3350] Active Medications: Generic Name Dose Route Start Last Admin Trade Name Freq PRN Reason Stop Dose Admin Acetaminophen 650 mg 05/29/21 05:28 06/07/21 21:38 Acetaminophen 325 Mg Tab PO 650 mg Q4H PRN Administration Pain MILD(1-3)/Fever >100.5/LOVE Albumin Human 25 gm 05/29/21 16:05 Albumin Human 25% (25 Gm/100 Ml) Inj IV ASHLEY PRN Hypotension Amiodarone HCl 100 mg 06/04/21 10:00 06/08/21 10:08 Amiodarone 200 Mg Tab PO 100 mg QDAY ELAINE Administration Epoetin Salas-epbx 20,000 unit 05/29/21 16:05 06/06/21 12:15 Epoetin Salas-Epbx 20,000 Unit/1 Ml Vial IV 20,000 unit ASHLEY PRN Administration hemodialysis Hydrocortisone Acetate 1 applic 05/30/21 14:00 Hydrocortisone 1% Cream 28.4gm TP Q8H PRN Skin Irritation Sodium Chloride 100 mls @ 999 mls/hr 06/07/21 13:36 Nacl 0.9% IV ASHLEY PRN Hypotension Metoprolol Tartrate 2.5 mg 05/30/21 16:00 Metoprolol Tartrate 5 Mg/5 Ml Inj IV Q6HR PRN HR >120 Morphine Sulfate 2 mg 05/29/21 05:28 06/01/21 10:52 Morphine 2 Mg/1 Ml Inj IV 2 mg Q4H PRN Administration Pain, Moderate (4-6) Ondansetron HCl 4 mg 05/29/21 05:28 06/01/21 17:15 Ondansetron 4 Mg/2 Ml Inj IV 4 mg Q8H PRN Administration Nausea And Vomiting Pantoprazole Sodium 40 mg 06/02/21 10:00 06/08/21 10:05 Pantoprazole 40 Mg Tab PO 40 mg DAILY ELAINE Administration Polyethylene Glycol 17 gm 06/04/21 16:00 06/08/21 10:09 Polyethylene Glycol 3350 17 Gm Powder PO Not Given QDAY ELAINE Sodium Chloride 10 ml 05/29/21 10:00 06/08/21 10:09 Sodium Chloride 0.9% 10 Ml Flush Syringe IV 10 ml BID ELAINE Administration Sodium Chloride 10 ml 05/29/21 05:28 Sodium Chloride 0.9% 10 Ml Flush Syringe IV PRN PRN LINE FLUSH
[2021-06-08 16:20] VITALS: BP 138/51
== END 2021-06-08 16:30 | DRG 377 ==
LOC: ED 22:47 → 4A 05-29 05:28 → CC1 05-30 10:56 → 4A 06-01 15:37
PROVIDERS: ADMIT Hospitalist; ATTEND Internal Medicine
PROC: 30233N1 Transfusion of Nonautologous Red Blood Cells into Peripheral Vein, Percutaneous Approach (ICD-10-PCS; 2021-05-30)
PROC: 5A1D70Z Performance of Urinary Filtration, Intermittent, Less than 6 Hours Per Day (ICD-10-PCS; 2021-05-30)
PROC: 0W3P8ZZ Control Bleeding in Gastrointestinal Tract, Via Natural or Artificial Opening Endoscopic (ICD-10-PCS; principal; 2021-05-31)
PROC: 0DB68ZX Excision of Stomach, Via Natural or Artificial Opening Endoscopic, Diagnostic (ICD-10-PCS; 2021-05-31)
PROC: 5A1D70Z Performance of Urinary Filtration, Intermittent, Less than 6 Hours Per Day (ICD-10-PCS; 2021-06-01)
PROC: 5A1D70Z Performance of Urinary Filtration, Intermittent, Less than 6 Hours Per Day (ICD-10-PCS; 2021-06-02)
PROC: 5A1D70Z Performance of Urinary Filtration, Intermittent, Less than 6 Hours Per Day (ICD-10-PCS; 2021-06-03)
PROC: 5A1D70Z Performance of Urinary Filtration, Intermittent, Less than 6 Hours Per Day (ICD-10-PCS; 2021-06-06)
PROC: 5A1D70Z Performance of Urinary Filtration, Intermittent, Less than 6 Hours Per Day (ICD-10-PCS; 2021-06-07)
DX: K26.0 Acute duodenal ulcer with hemorrhage (principal); N18.6 End stage renal disease; E43 Unspecified severe protein-calorie malnutrition; I48.19 Other persistent atrial fibrillation; I12.0 Hypertensive chronic kidney disease with stage 5 chronic kidney disease or end stage renal disease; N25.81 Secondary hyperparathyroidism of renal origin; D62 Acute posthemorrhagic anemia; Z20.822 Contact with and (suspected) exposure to COVID-19; Z99.2 Dependence on renal dialysis; R79.89 Other specified abnormal findings of blood chemistry; Z68.26 Body mass index [BMI] 26.0-26.9, adult; E78.00 Pure hypercholesterolemia, unspecified; E03.9 Hypothyroidism, unspecified; E78.5 Hyperlipidemia, unspecified; D63.1 Anemia in chronic kidney disease; D69.6 Thrombocytopenia, unspecified; I95.9 Hypotension, unspecified; Z79.82 Long term (current) use of aspirin
CPT/HCPCS: 36415; 74176; 80048; 80053; 80074; 81001; 82140; 82270; 82962; 83690; 83735; 84100; 85007; 85014; 85018; 85025; 85049; 85610; 85730; 86850; 86900; 86901; 86920; 87086; 88305; 88342; 93005; 94760; G0378; J3490; J7060; C9113; J0282; J0885; J2270; J2405; J2704; J7030; J7040; J7050; P9016; P9047; U0003